=== PATIENT | male | born 1945 | race Caucasian/White ===

== ENCOUNTER 2021-03-24 17:37 | Inpatient (IN) ==
[2021-03-24] MEDS ORDERED: SODIUM CHLORIDE 0.9% 1000ML 500 ML IV ONE ×2 (18:20→21:22)
--- NOTE | 2021-03-24 18:23 | Emergency Department Note ---
Impression & Plan Ventricular fibrillation, Acute retention of urine, Hematuria, Malfunction of Izaguirre catheter, Atrial fibrillation with rapid ventricular response ED Provider Note NAME: NARAYAN PAREDES AGE: 75 SEX: M : 1945 ARRIVES VIA: Ambulance INFORMANT: Patient, the patient's significant other ED PROVIDER(S): Osorio Lilly DO CHIEF COMPLAINT: Hematuria HPI: The patient is a 75-year-old male who presented to the emergency department for an evaluation of hematuria. The patient has a history of sepsis and also Guillain-Lowery. He would normally self cath himself for urine but started having difficulty over the course the last few days. For this reason the patient had a Izaguirre catheter placed at [facility]. It sounds though he started having hematuria yesterday which significantly worsened. The patient does take an oral anticoagulant. He complains of very severe abdominal pain and bleeding around his penis. He denies having any vomiting. He said no back pain. The patient denies having any chest pain or fever. The patient's symptoms are moderate to severe. He was sent to the emergency department for further evaluation. ROS: See above HPI for pertinent positives & negatives. A total of 10 systems reviewed and were otherwise negative. PAST MEDICAL HISTORY: See Below PAST SURGICAL HISTORY: See Below FAMILY HISTORY: See Below SOCIAL HISTORY: See Below HOME MEDICATIONS: See Below ALLERGIES: See Below VITALS: See Below PHYSICAL EXAMINATION: GENERAL: The patient is awake and alert. He is very anxious appearing and appears to be uncomfortable. EYES: The conjunctivae are clear. The pupils are round and reactive. EARS, NOSE, MOUTH AND THROAT: The nose is without any evidence of any deformity. NECK: The neck is nontender and supple. RESPIRATORY: Normal respiratory effort is noted there is no evidence of wheezing rhonchi or rales CARDIOVASCULAR: Regular rate and rhythm noted there no murmurs rubs or gallops normal S1 normal S2. GASTROINTESTINAL: The abdomen is moderately distended and diffusely tender. There is no guarding rigidity. MUSCULOSKELETAL/EXTREMITIES: There is no evidence of gross deformity full range of motion is noted in the hips and shoulders. SKIN: Pedal edema was noted bilaterally. NEUROLOGIC: Patient is awake alert and oriented x3. MEDICAL DECISION MAKING: The patient is a 75-year-old male who presented to the emergency department for an evaluation of hematuria. The patient recently had a Izaguirre catheter placed. He normally he straight caths for urine. He currently resides at [facility] [place] [facility] from a recent admission for sepsis. 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 The patient has a history atrial fibrillation and receives oral anticoagulation. The patient had the Izaguirre catheter changed and had good resolution of the majority of the hematuria. The patient then developed rapid atrial fibrillation. He had wide-complex tachycardia as well and was shocked multiple times by his implanted defibrillator. He was started on IV amiodarone. He was reevaluated multiple times. I discussed the patient's laboratory and radiographic studies with him. I also discussed his case with the on-call [facility]. They have agreed to evaluate the patient in the emergency department for further management and disposition. Triage Nursing notes reviewed. Prior medical records reviewed Vital Signs: reviewed and remarkable for tachycardia and hypotension. Differential diagnosis: Testicular torsion, mass, infection, hernia, hydrocele, epididymitis, STI, trauma, intra-abdominal process, as well as other pathologies. ER treatment provided: See below Diagnostics interpreted by me: ECG: EKG was obtained in the emergency department. My interpretation is atrial fibrillation at [address] segment abnormalities were noted. PVCs were noted. This was compared to a tracing from July 202008. Normal sinus rhythm has been replaced with atrial fibrillation. Cardiac Monitoring: An order was placed for continuous cardiac monitoring. The monitor shows a rate of 142 bpm with atrial fibrillation rhythm. Laboratory studies: As stated above and show below. Imaging studies: See below Consultation(s): I discussed this case with Dr. Sheppard [facility] He will evaluate the patient in the emergency department. ED COURSE: Procedures: none PDMP:reviewed and no issues Critical Care: I have personally spent greater than 55 minutes of critical care time in the direct management of this patient. This includes bedside care, interpretation of diagnostic studies, and testing, discussion with consultants, patient, and family members, and other required patient management activities. This 55 minutes is in excess of all separately billable procedures. Past Med/Surg History Medical History Critical illness polyneuropathy Guillain-Shorter syndrome History of atrial fibrillation History of hypertension History of ventricular tachycardia Sepsis with acute hypoxic respiratory failure Surgical History History of automatic internal cardiac defibrillator (AICD) History of tracheostomy Social History Smoking Status: Never smoker Preferred Language: [place]az[place] Feels Safe at Home: Yes Allergies Allergies Allergy/AdvReac Type Severity Reaction Status Date / Time ciprofloxacin Allergy Unknown Verified 03/24/21 19:06 sertraline Allergy Unknown Verified 03/24/21 19:06 Home Meds Home Medications Medication Instructions Recorded Confirmed acetaminophen 325 mg tablet 650 mg FEEDING TUBE Q4 PRN 03/24/21 03/24/21 apixaban 5 mg tablet 5 mg FEEDING TUBE Q12 03/24/21 03/24/21 chlorhexidine gluconate 0.12 % 15 ml BUCCAL Q4 03/24/21 03/24/21 mouthwash cholecalciferol (vitamin D3) 25 12.5 mcg FEEDING TUBE DAILY 03/24/21 03/24/21 mcg (1,000 unit) capsule (Vitamin D3) cyclobenzaprine 10 mg tablet 10 mg PO TID PRN 03/24/21 03/24/21 docusate sodium 50 mg/5 mL oral 100 mg FEEDING TUBE BID 03/24/21 03/24/21 liquid furosemide 40 mg tablet 40 mg FEEDING TUBE .BIDAC 03/24/21 03/24/21 guaifenesin 100 mg/5 mL oral liquid 100 mg FEEDING TUBE Q6 03/24/21 03/24/21 latanoprost 0.005 % eye drops 1 drp OPB HS 03/24/21 03/24/21 lidocaine 5 % topical patch 1 patch TOPICAL QAM 03/24/21 03/24/21 lisinopril 2.5 mg tablet 2.5 mg FEEDING TUBE DAILY 03/24/21 03/24/21 melatonin 3 mg tablet 9 mg FEEDING TUBE HS 03/24/21 03/24/21 metoprolol tartrate 50 mg tablet 50 mg FEEDING TUBE Q8 03/24/21 03/24/21 mirtazapine 15 mg tablet 15 mg FEEDING TUBE HS 03/24/21 03/24/21 nystatin 100,000 unit/gram topical 1 applic TOPICAL BID 03/24/21 03/24/21 cream omeprazole magnesium 10 mg oral 20 mg FEEDING TUBE .BIDAC 03/24/21 03/24/21 suspension,delayed release oxycodone 5 mg tablet 5 mg PO Q4H PRN 03/24/21 03/24/21 sulfamethoxazole 800 1 tab PO 3XWK 03/24/21 03/24/21 mg-trimethoprim 160 mg tablet tramadol 50 mg tablet 50 mg PO Q4 PRN 03/24/21 03/24/21 Results & Data (ED) Vital Signs Vital Signs - 24 hr 03/24/21 17:55 03/24/21 18:01 03/24/21 20:00 Temperature 36.4 C L Temperature Source Oral Pulse Rate 64 Pulse Rate [Apical] 63 76 Pulse Rhythm Regular Pulse Rhythm [Apical] Regular Respiratory Rate 15 15 16 Respiratory Effort / Characteristics Non-Labored Respiratory Depth Normal Normal Blood Pressure 99/60 L Blood Pressure [Right Arm] 99/66 L 113/56 L Blood Pressure Mean 73 Blood Pressure Mean [Right Arm] 77 75 Blood Pressure Position [Right Arm] Lying Pulse Oximetry 95 95 98 Oxygen Delivery Method Trach Collar T-Piece Room Air Oxygen Flow Rate Sepsis Recent Fever Within 48 Hours No Sepsis New/Unexplained Change in Mental Status No Sepsis Action Taken by Nursing No Action Required 03/24/21 21:18 03/24/21 22:00 03/25/21 00:07 Temperature Temperature Source Pulse Rate 112 H Pulse Rate [Apical] 142 H 130 H Pulse Rhythm Pulse Rhythm [Apical] Regular Respiratory Rate 15 23 Respiratory Effort / Characteristics Non-Labored Respiratory Depth Normal Blood Pressure 109/86 Blood Pressure [Right Arm] 95/59 L Blood Pressure Mean Blood Pressure Mean [Right Arm] 71 Blood Pressure Position [Right Arm] Lying Pulse Oximetry 95 96 92 Oxygen Delivery Method T-Piece Trach Collar Trach Collar Oxygen Flow Rate 5 Sepsis Recent Fever Within 48 Hours Sepsis New/Unexplained Change in Mental Status Sepsis Action Taken by Longterm Medications Current Medication List: was personally reviewed by me Laboratory Data Attestation: I reviewed the patient's lab results. Result diagrams: 03/24/21 20:16 03/24/21 20:16 Lab Results 03/24/21 03/24/21 03/24/21 Range/Units 20:16 20:16 20:16 WBC 11.03 H (4.8-10.8) K/uL RBC 4.19 L (4.7-6.1) M/uL Hgb 12.5 L (14.0-18.0) g/dL Hct 38.0 L (42-52) % MCV 90.7 (80-100) fL MCH 29.8 (25-34) pg MCHC 32.9 (32-36) g/dL RDW Std Deviation 53.7 H (36.4-46.3) fL RDW Coeff of Jackie 16.1 H (11.5-14.5) % Plt Count 307 (130-400) K/uL MPV 11.2 H (7.4-10.4) fL Immature Gran % (Auto) 0.7 % Neut % (Auto) 76.3 % Lymph % (Auto) 16.3 % Angelina % (Auto) 6.3 % Eos % (Auto) 0.1 % Baso % (Auto) 0.3 % Neut # (Auto) 8.42 H (1.4-6.5) K/uL Lymph # (Auto) 1.80 (1.2-3.4) K/uL Angelina # (Auto) 0.69 H (0.11-0.59) K/uL Eos # (Auto) 0.01 (0-0.5) K/uL Baso # (Auto) 0.03 (0-0.2) K/uL Immature Gran # (Auto) 0.08 H (0.00-0.02) K/uL PT 12.3 H (9.0-12.0) Seconds INR 1.2 H (0.9-1.1) APTT 27.6 (21.0-31.0) Seconds PTT Ratio 1.0 Sodium 133 L (136-145) mmol/L Potassium 5.0 (3.5-5.1) mmol/L Chloride 95 L (98-107) mmol/L Carbon Dioxide 26 (21-32) mmol/L Anion Gap 11.0 (3-11) BUN 23 H (7-18) mg/dl Creatinine 0.89 (0.6-1.4) mg/dl Est Cr Clr Drug Dosing Not Reportable Est GFR ( Amer) 96.3 ml/min Est GFR (Non-Af Amer) 83.1 ml/min BUN/Creatinine Ratio 25.7 H (10-20) Glucose 143 H (70-99) mg/dl Calcium 9.7 (8.5-10.1) mg/dl Total Bilirubin 0.7 (0.2-1) mg/dl AST 49 H (15-37) U/L ALT 90 H (12-78) U/L Alkaline Phosphatase 131 H (45-117) U/L Troponin I (0-0.045) ng/ml Total Protein 7.3 (6.4-8.2) gm/dl Albumin 2.6 L (3.4-5.0) gm/dl Globulin 4.7 H (2.5-4.0) gm/dl Albumin/Globulin Ratio 0.5 L (0.9-2) Lipase 76 (73-393) U/L Specimen Hemolysis Urine Color Urine Appearance (Clear) Urine pH (4.5-7.5) Ur Specific [place] (1.000-1.030) Urine Protein (Negative) Urine Glucose (UA) (Negative) Urine Ketones (Negative) Urine Blood (Negative) Urine Nitrite (Negative) Urine Bilirubin (Negative) Urine Urobilinogen (Negative) Ur Leukocyte Esterase (Negative) Urine WBC (Auto) (0-5) /hpf Urine RBC (Auto) (0-4) /hpf U Hyaline Cast (Auto) (0-5) /lpf U Epithel Cells (Auto) (0-5) /lpf Urine Bacteria (Auto) (Negative) COVID-19 Eval Order SARS-CoV-2 (PCR) (Negative) 03/24/21 03/24/21 03/24/21 Range/Units 22:14 Unknown Unknown WBC (4.8-10.8) K/uL RBC (4.7-6.1) M/uL Hgb (14.0-18.0) g/dL Hct (42-52) % MCV (80-100) fL MCH (25-34) pg MCHC (32-36) g/dL RDW Std Deviation (36.4-46.3) fL RDW Coeff of Jackie (11.5-14.5) % Plt Count (130-400) K/uL MPV (7.4-10.4) fL Immature Gran % (Auto) % Neut % (Auto) % Lymph % (Auto) % Angelina % (Auto) % Eos % (Auto) % Baso % (Auto) % Neut # (Auto) (1.4-6.5) K/uL Lymph # (Auto) (1.2-3.4) K/uL Angelina # (Auto) (0.11-0.59) K/uL Eos # (Auto) (0-0.5) K/uL Baso # (Auto) (0-0.2) K/uL Immature Gran # (Auto) (0.00-0.02) K/uL PT (9.0-12.0) Seconds INR (0.9-1.1) APTT (21.0-31.0) Seconds PTT Ratio Sodium (136-145) mmol/L Potassium (3.5-5.1) mmol/L Chloride (98-107) mmol/L Carbon Dioxide (21-32) mmol/L Anion Gap (3-11) BUN (7-18) mg/dl Creatinine (0.6-1.4) mg/dl Est Cr Clr Drug Dosing Est GFR ( Amer) ml/min Est GFR (Non-Af Amer) ml/min BUN/Creatinine Ratio (10-20) Glucose (70-99) mg/dl Calcium (8.5-10.1) mg/dl Total Bilirubin (0.2-1) mg/dl AST (15-37) U/L ALT (12-78) U/L Alkaline Phosphatase (45-117) U/L Troponin I 0.015 (0-0.045) ng/ml Total Protein (6.4-8.2) gm/dl Albumin (3.4-5.0) gm/dl Globulin (2.5-4.0) gm/dl Albumin/Globulin Ratio (0.9-2) Lipase (73-393) U/L Specimen Hemolysis Urine Color Dark Yellow Urine Appearance Cloudy A (Clear) Urine pH 5.5 (4.5-7.5) Ur Specific [place] 1.014 (1.000-1.030) Urine Protein 1+ H (Negative) Urine Glucose (UA) Negative (Negative) Urine Ketones Negative (Negative) Urine Blood 3+ H (Negative) Urine Nitrite Negative (Negative) Urine Bilirubin Negative (Negative) Urine Urobilinogen Negative (Negative) Ur Leukocyte Esterase Trace H (Negative) Urine WBC (Auto) 1-5 (0-5) /hpf Urine RBC (Auto) >30 H (0-4) /hpf U Hyaline Cast (Auto) 0 (0-5) /lpf U Epithel Cells (Auto) 0-5 (0-5) /lpf Urine Bacteria (Auto) 1+ H (Negative) COVID-19 Eval [address] Covid[address] [facility] SARS-CoV-2 (PCR) (Negative) 03/24/21 Range/Units Unknown WBC (4.8-10.8) K/uL RBC (4.7-6.1) M/uL Hgb (14.0-18.0) g/dL Hct (42-52) % MCV (80-100) fL MCH (25-34) pg MCHC (32-36) g/dL RDW Std Deviation (36.4-46.3) fL RDW Coeff of Jackie (11.5-14.5) % Plt Count (130-400) K/uL MPV (7.4-10.4) fL Immature Gran % (Auto) % Neut % (Auto) % Lymph % (Auto) % Angelina % (Auto) % Eos % (Auto) % Baso % (Auto) % Neut # (Auto) (1.4-6.5) K/uL Lymph # (Auto) (1.2-3.4) K/uL Angelina # (Auto) (0.11-0.59) K/uL Eos # (Auto) (0-0.5) K/uL Baso # (Auto) (0-0.2) K/uL Immature Gran # (Auto) (0.00-0.02) K/uL PT (9.0-12.0) Seconds INR (0.9-1.1) APTT (21.0-31.0) Seconds PTT Ratio Sodium (136-145) mmol/L Potassium (3.5-5.1) mmol/L Chloride (98-107) mmol/L Carbon Dioxide (21-32) mmol/L Anion Gap (3-11) BUN (7-18) mg/dl Creatinine (0.6-1.4) mg/dl Est Cr Clr Drug Dosing Est GFR ( Amer) ml/min Est GFR (Non-Af Amer) ml/min BUN/Creatinine Ratio (10-20) Glucose (70-99) mg/dl Calcium (8.5-10.1) mg/dl Total Bilirubin (0.2-1) mg/dl AST (15-37) U/L ALT (12-78) U/L Alkaline Phosphatase (45-117) U/L Troponin I (0-0.045) ng/ml Total Protein (6.4-8.2) gm/dl Albumin (3.4-5.0) gm/dl Globulin (2.5-4.0) gm/dl Albumin/Globulin Ratio (0.9-2) Lipase (73-393) U/L Specimen Hemolysis Urine Color Urine Appearance (Clear) Urine pH (4.5-7.5) Ur Specific [place] (1.000-1.030) Urine Protein (Negative) Urine Glucose (UA) (Negative) Urine Ketones (Negative) Urine Blood (Negative) Urine Nitrite (Negative) Urine Bilirubin (Negative) Urine Urobilinogen (Negative) Ur Leukocyte Esterase (Negative) Urine WBC (Auto) (0-5) /hpf Urine RBC (Auto) (0-4) /hpf U Hyaline Cast (Auto) (0-5) /lpf U Epithel Cells (Auto) (0-5) /lpf Urine Bacteria (Auto) (Negative) COVID-19 Eval Order SARS-CoV-2 (PCR) NEGATIVE (Negative) Administered Medications Amiodarone HCl/Dextrose (Nexterone / D5w) 360 mg in 200 mls @ 33.333 mls/hr IV .Q6H BI Stop: 03/25/21 04:29 Last Admin: 03/24/21 22:47 Dose: 1 mg/min, 33.3 mls/hr Documented by: [id number] Cosigned by: [id number] Discontinued Medications Sodium Chloride (Nss 1000ml) 500 mls @ 999 mls/hr IV .Q31M ONE Stop: 03/24/21 18:50 Last Infusion: 03/24/21 23:24 Dose: 0 mls/hr Documented by: [id number] Admin: 03/24/21 20:45 Dose: 999 mls/hr Documented by: [id number] Sodium Chloride (Nss 1000ml) 500 mls @ 999 mls/hr IV .Q31M ONE Stop: 03/24/21 21:52 Last Infusion: 03/24/21 23:24 Dose: 0 mls/hr Documented by: [id number] Admin: 03/24/21 21:43 Dose: 999 mls/hr Documented by: [id number] Amiodarone HCl/Dextrose (Nexterone / D5w) 150 mg in 100 mls @ 600 mls/hr IV ONE STA Stop: 03/24/21 22:30 Last Infusion: 03/24/21 23:23 Dose: 0 mls/hr Documented by: [id number] Cosigned by: [id number] Admin: 03/24/21 22:36 Dose: 600 mls/hr Documented by: [id number] Cosigned by: [id number] Ondansetron HCl (Ondansetron Inj 2 Mg/Ml 2 Ml Vial) 4 mg IV NOW STA Stop: 03/24/21 21:23 Last Admin: 03/24/21 21:42 Dose: 4 mg Documented by: [id number] Oxycodone HCl (Oxycodone Hcl Ir 5 Mg Tab (Immediate Release)) 5 mg PO NOW STA Stop: 03/24/21 19:27 Last Admin: 03/24/21 19:44 Dose: Not Given Documented by: [id number] Imaging Data Attestation: I personally reviewed and interpreted this imaging study as follows: My Impression: 1 view chest x-ray was obtained in the emergency department. My interpretation is poor in story effort. There was an implantable defibrillator pacer in the left upper chest. Nonspecific airspace disease was noted in the lower lobes bilaterally. Tracheostomy was also noted. This was compared to a chest x-ray from July 202008. The defibrillator is new compared to the previous chest x-ray as is the tracheostomy. Discharge Plan Visit Data Chief Complaint: Hematuria Stated Complaint: hematuria ED Provider: Osorio Lilly Discharge Problem: Ventricular fibrillation, Acute retention of urine, Hematuria, Malfunction of Izaguirre catheter, Atrial fibrillation with rapid ventricular response Patient Disposition: Being Evaluated by Hospitalist Condition: Good Discharge Instructions Sandra/Other Patient Handouts: ED Hematuria Activity Restrictions/Additional Instructions: Continue all medications as prescribed. Continue to care for the Izaguirre catheter as instructed. Follow-up with your family doctor within the next 24 to 48 hours for recheck. Return to the emergency department if symptoms worsen or if need arises. Interventions: ED Discharge Assessment Last Done: 03/24/21 21:18 Forms Stand Alone Forms: My [facility], [facility] Emergency Department, Important Visit Information Prescriptions Prescriptions: No Action furosemide 40 mg Tablet 40 mg feeding tube .BIDAC RF: 0 latanoprost 0.005 % Drops 1 drp OPB HS RF: 0 acetaminophen 325 mg Tablet 650 mg feeding tube Q4 PRN (Reason: Pain (Scale Score 1-3)) RF: 0 melatonin 3 mg Tablet 9 mg feeding tube HS RF: 0 guaifenesin 100 mg/5 mL Liquid 100 mg feeding tube Q6 RF: 0 lidocaine 5 % Adhesive Patch,Medicated 1 patch TOPICAL QAM RF: 0 cholecalciferol (vitamin D3) [Vitamin D3] 25 mcg (1,000 unit) Capsule 12.5 mcg feeding tube DAILY RF: 0 omeprazole magnesium 10 mg Susp,Delayed Release For Recon 20 mg feeding tube .BIDAC RF: 0 apixaban 5 mg Tablet 5 mg feeding tube Q12 RF: 0 cyclobenzaprine [Flexeril] 10 mg Tablet 10 mg PO TID PRN (Reason: Spasms) RF: 0 tramadol 50 mg Tablet 50 mg PO Q4 PRN (Reason: Pain) RF: 0 nystatin 100,000 unit/gram Cream 1 applic TOPICAL BID RF: 0 metoprolol tartrate 50 mg Tablet 50 mg feeding tube Q8 RF: 0 mirtazapine 15 mg Tablet 15 mg feeding tube HS RF: 0 lisinopril 2.5 mg Tablet 2.5 mg feeding tube DAILY RF: 0 oxycodone 5 mg Tablet 5 mg PO Q4H PRN (Reason: Pain) RF: 0 docusate sodium 50 mg/5 mL Liquid 100 mg feeding tube BID RF: 0 sulfamethoxazole-trimethoprim 800-160 mg Tablet 1 tab PO 3XWK RF: 0 chlorhexidine gluconate 0.12 % Mouthwash 15 ml BUCCAL Q4 RF: 0 Referrals Referrals: PCP,NO [Primary Care Provider] -
[2021-03-24 19:18] LABS: Appearance Urine Cloudy (Clear); Bacteria Urine Automated 1+ (Negative); Bilirubin Urine Negative (Negative); Blood Urine 3+ (Negative); Cast Urine Automated 0 /lpf (0-5); Color Urine Dark Yellow; Epithelial Cell Urine Auto 0-5 /lpf (0-5); Glucose Urine UA Negative (Negative); Ketones Urine Negative (Negative); Leukocyte Esterase Urine Trace (Negative); Nitrite Urine Negative (Negative); Protein Urine 1+ (Negative); RBC Urine Automated >30 /hpf (0-4); Specific Gravity Urine 1.014 (1.000-1.030); Urobilinogen Urine Negative (Negative); pH Urine 5.5 (4.5-7.5)
[2021-03-24] MEDS ORDERED: oxyCODONE HCL IR 5 MG TAB (IMMEDIATE RELEASE) PO STA (19:26)
[2021-03-24 20:22] LABS: Basophils # (auto) 0.03 K/uL (0-0.2); Basophils % (auto) 0.3 %; Eosinophils # (auto) 0.01 K/uL (0-0.5); Eosinophils % (auto) 0.1 %; Hemoglobin 12.5 g/dL (14.0-18.0); Immature Granulocytes # (auto) 0.08 K/uL (0.00-0.02); Immature Granulocytes % (auto) 0.7 %; Lymphocytes % (auto) 16.3 %; Mean Corpuscular Hemoglobin 29.8 pg (25-34); Mean Corpuscular Hgb Conc 32.9 g/dL (32-36); Mean Corpuscular Volume 90.7 fL (80-100); Mean Platelet Volume 11.2 fL (7.4-10.4); Monocytes # (auto) 0.69 K/uL (0.11-0.59); Monocytes % (auto) 6.3 %; Neutrophils # (auto) 8.42 K/uL (1.4-6.5); Neutrophils % (auto) 76.3 %; Platelet Count 307 K/uL (130-400); RDW Coefficient of Variation 16.1 % (11.5-14.5); RDW Standard Deviation 53.7 fL (36.4-46.3); Red Blood Count 4.19 M/uL (4.7-6.1); White Blood Count 11.03 K/uL (4.8-10.8)
[2021-03-24 20:35] LABS: INR 1.2 (0.9-1.1); Partial Thromboplastin Time 27.6 Seconds (21.0-31.0); Prothrombin Time 12.3 Seconds (9.0-12.0)
[2021-03-24 20:54] LABS: Alanine Aminotransferase 90 U/L (12-78); Albumin Globulin Ratio 0.5 (0.9-2); Albumin Level 2.6 gm/dl (3.4-5.0); Alkaline Phosphatase 131 U/L (45-117); Aspartate Aminotransferase 49 U/L (15-37); BUN Creatinine Ratio 25.7 (10-20); Bilirubin,Total 0.7 mg/dl (0.2-1); Blood Urea Nitrogen 23 mg/dl (7-18); Calcium 9.7 mg/dl (8.5-10.1); Carbon Dioxide 26 mmol/L (21-32); Chloride 95 mmol/L (98-107); Est GFR (African American) 96.3 ml/min; Est GFR (Non-African American) 83.1 ml/min; Globulin 4.7 gm/dl (2.5-4.0); Glucose 143 mg/dl (70-99); Lipase 76 U/L (73-393); Sodium 133 mmol/L (136-145); Total Protein 7.3 gm/dl (6.4-8.2)
[2021-03-24] MEDS ORDERED: ONDANSETRON INJ 2 MG/ML 2 ML VIAL IV STA (21:22)
[2021-03-24] MEDS ORDERED: AMIODARONE IV BOLUS & DRIP IV STA (22:15)
[2021-03-24] MEDS ORDERED: AMIODARONE / D5W 150 MG/100 ML BAG IV STA (22:21)
[2021-03-24] MEDS ORDERED: AMIODARONE / D5W 360 MG/200 ML BAG IV SCH (22:30)
[2021-03-24] MEDS ORDERED: ZINC OXIDE 16% 45 APPLN, HYDROCORTISONE 1% 45 APPLN, ALUMINUM/MAGNESIUM SUSP 15 ML, BAR... TOP ONE (23:38)
[2021-03-25] MEDS ORDERED: CONSULT PHARMACY STA (00:51)
[2021-03-25] MEDS ORDERED: ACETAMINOPHEN 1000 MG/100 ML IV IV ONE (01:40)
[2021-03-25] MEDS ORDERED: PIPERACILL/TAZOBAC CONSULT ACTIVE PRN (01:47)
[2021-03-25] MEDS ORDERED: PIPERACILLIN/TAZOBACTAM 4.5 GM in DEXTROSE 5% 100 ML IV SCH (01:50)
[2021-03-25] MEDS ORDERED: OPTIRAY 320 100ml IV ONE (02:10)
[2021-03-25] MEDS ORDERED: ACETAMINOPHEN 325 MG TAB PEG PRN (02:46)
[2021-03-25] MEDS ORDERED: traMADol HCL 50 MG TABLET NG PRN (02:46)
[2021-03-25] MEDS ORDERED: NITROGLYCERIN SL 0.4 MG/TAB TAB SL PRN (02:46)
[2021-03-25] MEDS ORDERED: ACETAMINOPHEN SUSP 325 MG/10.15 ML UDC PEG PRN (02:46)
[2021-03-25 03:17] LABS: Magnesium 1.7 mg/dl (1.8-2.4)
[2021-03-25] MEDS ORDERED: PIPERACILLIN/TAZOBACTAM 4.5 GM in DEXTROSE 5% 100 ML IV ONE (03:30)
--- NOTE | 2021-03-25 03:30 | Critical Care Consultation ---
Date of Consultation March 25, 2021 Assessment & Plan (1) Admitted to intensive care unit: Reason Critically Ill: 75-year-old male with 3 separate runs of V. fib with subsequent defibrillation of AICD requiring close hemodynamic monitoring. NEURO - * [facility] ICU: NEGATIVE * Guillain-Lowery syndrome: * Recent extensive stay between [facility] with him support and LTAC in [place]. * Resulted in paralysis in the upper and lower extremities as well as requiring long-term intubation with subsequent tracheostomy tube placement with PEG tube placement as well. * Patient has regained ability to breathe on his own through tracheostomy tube in 4 L nasal cannula. * Patient able to eat on his own as well. * Remains with extreme weakness of the lower extremities bilaterally. * Has regained moderate strength to the upper extremities bilaterally. * Chronic pain: * As needed oxycodone as previously prescribed. CARDIAC/VASCULAR - * Ventricular fibrillation with AICD discharge x3: * Patient received amiodarone bolus and ongoing drip. * Will add supplemental magnesium. * Continue to monitor closely in the ICU. * A.m. echocardiogram. * A. fib with RVR: * Reported chronic. * Continue with home medications as tolerated. * Anticoagulated on apixaban. * Monitor on telemetry. RESPIRATORY - * Chronic respiratory failure: * Patient with tracheostomy tube placement. * Requiring 4 L nasal cannula which she has previously required at home secondary to history of COPD. GI/NUTRITION - * Progress diet as tolerated. * PEG tube in place, however patient reports that he has not required feeding from this the last several weeks. RENAL/LYTES - * No significant electrolyte derangements. * Supplement magnesium as needed in the setting of V. fib. * Maximize electrolytes in the setting of V. fib. * IVF: NSS at 100 mL's per hour. - * Izaguirre catheter issue: * Initially with hematuria status post Izaguirre catheter placement. * Seems to have improved status post replacement of Izaguirre catheter. * Patient with ongoing discomfort. Obtain CT abdomen/pelvis for evaluation of signs of trauma. * Izaguirre in place - Strict I&Os. ENDO - * No history of diabetes or thyroid disease. * BSGs per unit protocol. ISS --> gtt per unit policy. HEME - * Stable H&H. * Monitor for drop in blood volume status post hematuria. ID - * Question of UTI. * Currently covered with Zosyn. * Will check procalcitonin and lactate. LINES/IV ACCESS - * PIVs x1 * Izaguirre catheter * PEG tube * Tracheostomy tube DVT PROPHYLAXIS - * Anticoagulated on apixaban * SCDs I have personally spent 45 minutes of critical care time in the direct management of this patient. This is a life/limb threatening event. This includes time spent evaluating patient, direct bedside care, chart review, placing orders, interpretation of diagnostic studies, discussion with consultants, patient, and family members, as well as other required patient management activities. This time is exclusive of all separately billable procedures, and teaching time and separate from and in addition to any other critical care service time. Thank you for allowing us to participate in the care of this patient. Please refer to my attending physician's documentation for any further recommendations. (2) Ventricular fibrillation: (3) Atrial fibrillation with rapid ventricular response: (4) Malfunction of Izaguirre catheter: (5) Hematuria: Supervising Physician Co-Signing Physician Notes Agree with CHIP Lynn's assessment and plan. Concern for possible sepsis as mediating his atrial fibrillation/ventricular fibrillation. Cardiology consult appreciated. Continue amiodarone. Urine cultures growing gram-positive cocci. Blood cultures pending. MRSA screen was positive. We will add vancomycin to Zosyn. Echo noted with severe global dysfunction. EF of 25%. Stable for transfer to the floor. History of Present Illness Attending Physician: Rut Pritchett MD History of Present Illness Patient is a 75-year-old male with a significant past medical history of hypertension, chronic back pain, A. fib, status post AICD placement, sleep apnea, COPD oxygen dependent on 4 L [id number]. Patient reports that in early January he developed a low-grade fever and eventually severe escalated at which point he presented to the [facility] emergency department. He reports that he spent a few days at their facility, but had discharged of his AICD and was subsequently transferred to [facility]. He states that overnight at some point he developed a sending paralysis and was eventually diagnosed with Guillain-Lowery syndrome. Patient ended up intubated for several days and eventually had tracheostomy and PEG tube placement. From there, he was transferred to [facility] in [place] where he received therapy until he was subsequently transferred to [facility] in [place] last . He states that he has regained movement of his upper extremities and minimal improvement with movement of his lower extremities. He has regained the ability to eat. Additionally, he is able to breathe on his own through his tracheostomy tube. Apparently, the patient underwent Izaguirre catheter exchange yesterday. He reports that there is little discomfort. Has had a moderate amount of blood from his catheter site which eventually prompted transfer to [place] the emergency department. Izaguirre catheter was exchanged and there was good urinary output at that point. Unfortunately, during his stay in the emergency department, the patient had 3 separate runs of V. fib with subsequent defibrillation from his AICD pacer. Patient with marginal blood pressures. Patient admitted to this facility after administration of amiodarone with subsequent drip for ongoing management. Patient does report that he did previously have an ejection fraction of approximately 25% prior to his AICD pacer placement. He states that at some point, he was informed that this number had improved, but he is uncertain of his current ejection fraction. Patient reports that he feels much better and is breathing comfortably at this time. He denies complaints of abdominal pain. Patient denies any chest pain, palpitations, shortness of breath, fevers, chills, nausea, or vomiting. Allergies Allergy/AdvReac Type Severity Reaction Status Date / Time ciprofloxacin Allergy Unknown Verified 03/24/21 19:06 sertraline Allergy Unknown Verified 03/24/21 19:06 Home Medications Medication Instructions Recorded Confirmed Type acetaminophen 325 mg tablet 650 mg FEEDING TUBE Q4 PRN 03/24/21 03/24/21 History apixaban 5 mg tablet 5 mg FEEDING TUBE Q12 03/24/21 03/24/21 History chlorhexidine gluconate 0.12 % 15 ml BUCCAL Q4 03/24/21 03/24/21 History mouthwash cholecalciferol (vitamin D3) 25 12.5 mcg FEEDING TUBE DAILY 03/24/21 03/24/21 History mcg (1,000 unit) capsule (Vitamin D3) cyclobenzaprine 10 mg tablet 10 mg PO TID PRN 03/24/21 03/24/21 History docusate sodium 50 mg/5 mL oral 100 mg FEEDING TUBE BID 03/24/21 03/24/21 History liquid furosemide 40 mg tablet 40 mg FEEDING TUBE .BIDAC 03/24/21 03/24/21 History guaifenesin 100 mg/5 mL oral liquid 100 mg FEEDING TUBE Q6 03/24/21 03/24/21 History latanoprost 0.005 % eye drops 1 drp OPB HS 03/24/21 03/24/21 History lidocaine 5 % topical patch 1 patch TOPICAL QAM 03/24/21 03/24/21 History lisinopril 2.5 mg tablet 2.5 mg FEEDING TUBE DAILY 03/24/21 03/24/21 History melatonin 3 mg tablet 9 mg FEEDING TUBE HS 03/24/21 03/24/21 History metoprolol tartrate 50 mg tablet 50 mg FEEDING TUBE Q8 03/24/21 03/24/21 History mirtazapine 15 mg tablet 15 mg FEEDING TUBE HS 03/24/21 03/24/21 History nystatin 100,000 unit/gram topical 1 applic TOPICAL BID 03/24/21 03/24/21 History cream omeprazole magnesium 10 mg oral 20 mg FEEDING TUBE .BIDAC 03/24/21 03/24/21 History suspension,delayed release oxycodone 5 mg tablet 5 mg PO Q4H PRN 03/24/21 03/24/21 History sulfamethoxazole 800 1 tab PO 3XWK 03/24/21 03/24/21 History mg-trimethoprim 160 mg tablet tramadol 50 mg tablet 50 mg PO Q4 PRN 03/24/21 03/24/21 History Patient History Medical History Critical illness polyneuropathy Guillain-[place] syndrome History of atrial fibrillation History of hypertension History of ventricular tachycardia Sepsis with acute hypoxic respiratory failure Surgical History History of automatic internal cardiac defibrillator (AICD) History of tracheostomy Social History Smoking Status: Unknown if ever smoked Hx Alcohol Use: No Hx Substance Use: No Preferred Language: Romansh Communication Ability: Effective Beliefs That Will Affect Care: None Current Living Situation: Rehab Current Living Situation Comment: [facility] Feels Safe at Home: Yes Safety Concerns: Feels Safe At This Time Assistive Devices: Glasses, Mechanical Lift, Oxygen - at Night and Wheelchair Review of Systems Review of Systems: A complete 10 point review of systems was reviewed with the patient with pertinent positives and negatives as per history of present illness. All else were negative. Physical Exam Physical Exam: VITAL SIGNS - Vital signs and nursing notes were reviewed. GENERAL - 75-year-old male appearing his stated age who is in no acute distress. Communicates well with provider and answers questions appropriately. SKIN - Without rashes. HEAD - NC/AT. EYES - PERRL with EOMI bilaterally. Sclera anicteric. Palpebral conjunctiva pink and moist with no injection noted. EARS - No deformities of external structures noted on gross examination bilaterally. NOSE - Midline and without cyanosis. No epistaxis or purulent drainage noted. MOUTH/OROPHARYNX - Without perioral cyanosis. Buccal mucosa pink and moist and without leukoplakia. NECK - Tracheostomy tube in place. Neck with FROM. Supple to palpation. No nuchal rigidity. LUNGS - Chest wall symmetric without accessory muscle use, intercostals retractions, or central cyanosis. Normal vesicular breath sounds CTA B/L. No wheezes, rales, or rhonchi appreciated. CARDIAC - Irregularly irregular. No murmur, rubs, or gallops appreciated. ABDOMEN - PEG tube in place. Abdominal contour obese without pulsations or visible masses. BS normoactive all four quadrants. No tenderness, palpable masses, hepatosplenomegaly, or ascites noted. EXTREMITIES - No clubbing or peripheral cyanosis. No pretibial edema present. +3/5 radial and dorsalis pedis pulses palpated throughout. Reduced strength in the upper extremities bilaterally. Minimal strength of the lower extremities bilaterally. NEUROLOGIC - Cranial nerves II through XII grossly intact. PSYCH - A&Ox3 and cooperates fully with examiner. Pt is very pleasant and interacts well with examiner. Results & Data Results & Data ([facility]) Vital Signs (Past 12 Hours) Vital Signs Temp Pulse Pulse Resp BP BP Pulse Ox 03/25/21 03:16 36.8 C 104 H 20 91/54 L 92 03/25/21 01:51 135 H 90/53 L 100 03/25/21 00:07 130 H 95/59 L 92 03/24/21 22:00 142 H 23 96 03/24/21 21:18 112 H 15 109/86 95 03/24/21 20:00 76 16 113/56 L 98 03/24/21 18:01 36.4 C L 64 15 99/60 L 95 03/24/21 17:55 63 15 99/66 L 95 Coding Level of Care Code Critical Care 1st 30-74 mins Diagnoses Admitted to intensive care unit Z78.9 Ventricular fibrillation I49.01 Atrial fibrillation with rapid ventricular response I48.91 Malfunction of Izaguirre catheter T83.011A Encounter type: initial encounter Hematuria R31.0 Hematuria type: gross Time Spent (min) 45 (1) Malfunction of Izaguirre catheter Encounter type: initial encounter Qualified Code(s): T83.011A - Breakdown (mechanical) of indwelling urethral catheter, initial encounter (2) Hematuria Hematuria type: gross Qualified Code(s): R31.0 - Gross hematuria
[2021-03-25] MEDS: SODIUM CHLORIDE 0.9% 1000ML 1,000 ML IV SCH ×3 (04:00→22:58)
[2021-03-25] MEDS: CHLORHEXIDINE GLUCONATE 0.12% 480 ML MT SCH ×5 (04:00→20:57)
[2021-03-25] MEDS: ALBUMIN 25% 12.5 GM/50 ML VIAL IV SCH ×2 (04:00→05:03)
[2021-03-25] MEDS: MAGNESIUM SULFATE / D5W 1 GM/100 ML BAG IV SCH ×2 (04:27→05:38)
[2021-03-25] MEDS: AMIODARONE / D5W 360 MG/200 ML BAG IV SCH ×2 (04:46→17:02)
[2021-03-25] MEDS: METOPROLOL TARTRATE 50 MG TAB PEG SCH ×3 (05:25→21:01)
[2021-03-25] MEDS: guaiFENesin SUGAR FREE 100 MG/5 ML UDC GT SCH ×3 (05:29→17:05)
--- NOTE | 2021-03-25 05:41 | History and Physical Report ---
DATE OF ADMISSION: 03/25/2021. CHIEF COMPLAINT: Hematuria, ICD shock. HISTORY OF PRESENT ILLNESS: A 75-year-old male with past medical history significant for atrial fibrillation, status post ablation, hypertension, hx of ventricular tachycardia, history of Guillain-[place] syndrome, critical illness polyneuropathy sepsis with acute hypoxemic respiratory failure, currently at [facility], who comes here because of hematuria. The patient is from the [place] area, generally goes to [place]. As per patient and his On 01/11/2021, he was admitted to [place] with sepsis. Then one week later, the patient could not move his extremities and he was short of breath and he was told that he has Guillain-[place] syndrome. As per the patient and his , he was intubated, he was on the ventilator almost for 2 months. He was there in [place] for 3 weeks and was transferred to [place], seemed to be long-term facility, and recently was transferred to [facility] as he was getting better for rehabilitation. He has trach and he is on oxygen from his [facility]. The patient is alert and oriented and able to give his history. Speech is good. 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 He has a PEG tube, but he is saying he is on pureed diet per mouth and also having PEG tube feedings. Yesterday at [facility] his Izaguirre catheter was placed and he started to have a lot of pain and today developed hematuria, that is the reason he was brought in here. In the ER, thought the Izaguirre was malfunctioning and it was removed and after placing the new Izaguirre in the ER his pain resolved, and the hematuria also started getting better. ER planned to transfer him back to [facility], when his ICD shocked 3 times. He was started on amiodarone drip and we were called for admission. The patient is currently resting comfortably, alert and oriented. He says he could feel the shocks, he felt that shocks in his head. He says he did not lose his consciousness. Denies any chest pain, denies any palpitations. No nausea, no headache, no blurred visions, no earache, no runny nose, no sore throat, no cough, no fever. Earlier he was nauseous, when he was in a lot of pain he was nauseous, but the pain is resolved now and now he is feeling okay. Bowels are moving okay. The patient and do not recollect why ICD was placed. ALLERGIES: CIPROFLOXACIN AND SERTRALINE. PAST MEDICAL HISTORY: As mentioned above. PAST SURGICAL HISTORY: ICD placement, knee surgeries as per the patient, and tracheostomy. MEDICATIONS: Currently the patient is on Tylenol 650 mg p.o. q. 4 hours p.r.n. via feeding tube, Eliquis 5 mg p.o. b.i.d., chlorhexidine gluconate ____ mL buccal q. 4 hours, vitamin D 12.5 mcg via feeding tube daily, Flexeril 10 mg p.o. t.i.d. p.r.n., Colace 100 mg via feeding tube b.i.d., Lasix 40 mg b.i.d. via feeding tube, guaifenesin 100 mg q. 6 hours via feeding tube, latanoprost one drop ophthalmic at bedtime, lidocaine 1 patch topical q.a.m., lisinopril 2.5 mg via feeding tube daily, melatonin 9 mg via feeding tube at bedtime, metoprolol tartrate 50 mg via feeding tube q. 8 hours, mirtazapine 15 mg p.o. at bedtime via feeding tube, nystatin topical b.i.d., omeprazole 20 mg via feeding tube b.i.d., oxycodone 5 mg p.o. q. 4 hours p.r.n., Bactrim 1 tablet p.o. 3 times a week, tramadol 50 mg p.o. q. 4 hours p.r.n. via feeding tube. FAMILY HISTORY: Noncontributory. SOCIAL HISTORY: Denies any smoking. Alcohol rarely. REVIEW OF SYSTEMS: As per HPI. Rest of the review of systems is negative. PHYSICAL EXAMINATION: GENERAL: The patient is of moderate build, not in acute distress. VITAL SIGNS: Temperature 36.4, pulse 130, respiratory rate 23, blood pressure 90/53, oxygen 100% on 5 liters and trach collar. HEENT: Pupils equal, round and reactive to light. Oral mucosa moist. NECK: Trach present with oxygen on. CARDIOVASCULAR: S1 and S2 heard. Tachycardia. No murmurs, no gallop. RESPIRATORY SYSTEM: Normal AP diameter. No accessory muscle use. No wheezing, no crackles. ABDOMEN: PEG tube seen, PEG tube site is clean. No guarding, no rigidity, no distention, no tenderness. CENTRAL NERVOUS SYSTEM: Alert and oriented. Speech is clear. No facial droop. Insight is good. Can move his upper extremities. Wiggle his lower extremities. EXTREMITIES: No edema, no erythema. LABORATORY DATA: WBC 11.03, hemoglobin 12.5, hematocrit 38, platelets 307. PT 12.3, INR 1.2, APTT 27.6. Sodium 133, potassium 5, chloride 95, bicarbonate 26, BUN 23, creatinine 0.8, serum glucose 143, calcium 9.7, total bilirubin 0.7, AST 49, ALT 90, alkaline phosphatase 131, troponin I of 0.015. Lipase 76. Urinalysis, +1 protein, + 3 blood, trace leukocyte esterase, +1 bacteria. SARS-CoV-2 PCR negative. IMAGING DATA: Chest x-ray, no acute findings seen. ICD seen. EKG: Sinus tachycardia with PVCs at the rate of 140, left axis deviation. ASSESSMENT AND PLAN: This is a 75-year-old male who presents with hematuria and in the ER he had ICD shock. 1. ICD shock: Interrogation reveals v fib and was shocked 3 times. His potassium is okay at 5, ordered magnesium. As per records, seems that he has a probable history of ventricular tachycardia. He does not know why he has ICD. Currently on amiodarone drip. Will continue the amiodarone. Monitor his blood pressure. Consulted and notified cardiology. We will follow echocardiogram. Follow serial cardiac enzymes. Intial plan to admit to tele but as patient becoming hypotensive SBP dropping into 70's admitting to ICU, blood pressure improving with more fluids bolus Also his heart rates in 130s possibly as patient complaining of lower back pain. Will closely monitor in the ICU. 2. Hematuria: This is getting better. Hemoglobin is 12.5. Blood consent obtained. Probably from the Izaguirre catheter. Holding Eliquis for now and consult urology in a.m. We will keep him n.p.o. 3. Possible urinary tract infection: Start him on Zosyn. 4. Pressure ulcers and abdominal pain: Recent Izaguirre obstruction. We will get a CT of abdomen and pelvis, follow the results. Antibiotics as above. 5. History of Guillain-Caledonia syndrome: Currently he is moving his extremities. Transfer back to rehab when stable. On trach collar. 6. History of hypertension: Currently blood pressure is low. We will monitor. On lisinopril and metoprolol tartrate, withholding parameters. 7. Possible congestive heart failure: On Lasix, which we will continue. Currently getting fluids. Will monitor for any volume overload. Follow echocardiogram. 8. A fib s/p ablaton one year ago as per . on metoprolol. currently on amiodarone drip. Holding eliquis for hematuria.Will monitor BP as currently BP soft.Await cardiology input. Close monitor in ICU 9. Deep venous thrombosis prophylaxis: We will place him on sequential compression devices for now. DISPOSITION: Closely monitor in the ICU. Level 1 full code. Expect to discharge back to rehab when stable. Job ID: [id number] MTDD
[2021-03-25 06:10] LABS: BUN Creatinine Ratio 33.5 (10-20); Calcium 8.7 mg/dl (8.5-10.1); Creatinine Clr Calc Pharmacy 114.6 ml/min; Est GFR (African American) 106.9 ml/min; Est GFR (Non-African American) 92.2 ml/min; Magnesium 1.8 mg/dl (1.8-2.4); Phosphorus 4.3 mg/dl (2.5-4.9); Potassium 3.3 mmol/L (3.5-5.1); Troponin I 0.059 ng/ml (0-0.045)
[2021-03-25 06:18] LABS: Basophils # (auto) 0.01 K/uL (0-0.2); Eosinophils # (auto) 0.01 K/uL (0-0.5); Hematocrit (blood only) 30.5 % (42-52); Hemoglobin 9.9 g/dL (14.0-18.0); Immature Granulocytes # (auto) 0.14 K/uL (0.00-0.02); Immature Granulocytes % (auto) 0.7 %; Lymphocytes # (auto) 0.89 K/uL (1.2-3.4); Lymphocytes % (auto) 4.4 %; Mean Corpuscular Hemoglobin 29.9 pg (25-34); Mean Corpuscular Hgb Conc 32.5 g/dL (32-36); Mean Corpuscular Volume 92.1 fL (80-100); Mean Platelet Volume 11.3 fL (7.4-10.4); Monocytes # (auto) 1.23 K/uL (0.11-0.59); Monocytes % (auto) 6.1 %; Neutrophils % (auto) 88.8 %; Nucleated RBC # (auto) 0.02 K/uL (0-0); Nucleated RBC % (auto) 0.1 %; Platelet Count 230 K/uL (130-400); RDW Coefficient of Variation 16.4 % (11.5-14.5); RDW Standard Deviation 55.4 fL (36.4-46.3); Red Blood Count 3.31 M/uL (4.7-6.1); White Blood Count 20.28 K/uL (4.8-10.8)
[2021-03-25] MEDS: POTASSIUM CHLORIDE / WTR 10 MEQ/100 ML PLCT IV SCH ×2 (06:43→08:56)
--- NOTE | 2021-03-25 06:58 | CT Scan Report ---
CT OF THE ABDOMEN AND PELVIS WITH CONTRAST CLINICAL HISTORY: Abdominal and back pain. COMPARISON STUDY: None. TECHNIQUE: Following IV administration of 95 mL of Optiray, axial images of the abdomen and pelvis we re obtained from the lung bases to the proximal femurs. Images were reviewed in the axial, sagittal, and coronal planes. IV contrast was administered without complication. Automated exposure control wa s utilized for the study. A dose lowering technique was utilized adhering to the principles of ALARA . CT DOSE: 1585.08 mGy.cm FINDINGS: Pacer leads are partially imaged. There is moderate cardiomegaly. Lower lung opacities favo r atelectasis. No pneumatosis, free air or portal venous gas is present. The liver, spleen, adrenal g lands and pancreas are unremarkable. Renal lesions favor cysts. There is no hydronephrosis. The gallb ladder is moderately distended. There is no adjacent infiltration. A gastrostomy tube is in place. Th ere is no evidence for a bowel obstruction. There is hyperdense material within the rectum and distal colon. Colonic diverticulosis is noted without evidence for acute diverticulitis. There is no eviden ce for a bowel obstruction. Infrarenal abdominal aorta is ectatic. There is moderate atherosclerotic plaque. Izaguirre balloon within the bladder is noted. Bladder is collapsed. There is no acute fracture o r suspicious lesion within the visualized skeletal structures. Multilevel degenerative changes of the lumbar spine are present. Fat-containing umbilical hernia is present. IMPRESSION: 1. Moderate gallbladder distention. However, no pericholecystic infiltration. 2. Colonic diverticulosis without evidence for acute diverticulitis. No bowel obstruction. Gastrostom y tube in place. 3. Lower lung opacities which favor atelectasis. ACT 112: Negative or not required by law. Electronically signed by: Jesus Alfred M.D. 03/25/2021 6:57 AM
[2021-03-25] MEDS ORDERED: VANCOMYCIN CONSULT ACTIVE PRN ×2 (08:36→13:52)
[2021-03-25] MEDS ORDERED: VANCOMYCIN HCL 1,500 MG in SODIUM CHLORIDE 0.9% 500 ML IV SCH ×2 (08:45→14:00)
--- NOTE | 2021-03-25 08:53 | XRay Report ---
SINGLE VIEW CHEST CLINICAL HISTORY: Palpitations. FINDINGS: An AP, portable, upright chest radiograph is compared to study dated 07/20/2009. The examin ation is degraded by portable technique and patient rotation. A 2-lead cardiac pacemaker partially o bscures the left mid chest. A tracheostomy is in place. The heart is enlarged. The pulmonary vasculat ure is noncongested. There is elevation of the right hemidiaphragm with bibasilar airspace opacities. No large pleural effusion or pneumothorax is seen. The skeletal structures are osteopenic. The bony thorax is grossly intact. A gastrostomy tube is seen in the upper abdomen. IMPRESSION: 1. Cardiomegaly and cardiac pacemaker. There is no radiographic evidence of congestive failure. 2. Dependent airspace opacities likely represent atelectasis. Correlate clinically for evidence of a superimposed infectious/inflammatory pneumonitis. ACT 112: Negative or not required by law. Electronically signed by: Justin Sky M.D. 03/25/2021 8:52 AM
[2021-03-25] MEDS: LANSOPRAZOLE 30 MG SOLTAB PEG SCH ×2 (08:56→17:03)
[2021-03-25] MEDS: FUROSEMIDE 40 MG TAB PO SCH ×2 (08:56→17:03)
[2021-03-25] MEDS: PIPERACILLIN/TAZOBACTAM 3.375 GM in DEXTROSE 5% 100 ML IV SCH ×2 (08:56→17:02)
[2021-03-25] MEDS: DOCUSATE SODIUM SYRUP 100 MG/10 ML UDC PEG SCH ×2 (08:57→20:58)
[2021-03-25] MEDS: lisinopril 2.5 MG TAB PO SCH (08:57)
[2021-03-25] MEDS: CHOLECALCIFEROL 1,000 UNITS 25 MCG TAB PEG SCH (08:57)
[2021-03-25] MEDS: LIDOCAINE 5% 1 PATCH TD SCH (08:57)
[2021-03-25] MEDS: NYSTATIN CR 15 GM TUBE EXT SCH ×2 (08:58→21:01)
[2021-03-25] MEDS ORDERED: VANCOMYCIN HCL 2,250 MG in SODIUM CHLORIDE 0.9% 500 ML IV ONE (09:15)
--- NOTE | 2021-03-25 11:23 | Cardiology Consultation ---
Date of Consultation March 25, 2021 Assessment & Plan (1) AICD discharge: (2) Hematuria: (3) Severe left ventricular systolic dysfunction: The interrogation of the patient's dual chamber [employer] AICD was reviewed personally and I also asked Dr Fernández of EP to review it for a second opinion. Is that the patient's telemetry is somewhat unhelpful, as he has a tremor, and therefore evaluation of tachycardia and wide-complex tachycardia is technically limited on his surface telemetry. Per review of the device interrogation, he did have an episode of atrial fibrillation yesterday, and leading up to the [address] A[address] just before 10 PM, its somewhat challenging to d etermine if this was related to atrial fibrillation with very rapid ventricular response in excess of 200 bpm, or if it was in fact ventricular tachycardia. The device attempted antitachycardia pacing on 3 occasions without success and the patient subsequently received 3 shocks with successful conversion to sinus rhythm. At present he is on an amiodarone infusion. Per review of the limited available outside records (H and P performed at time of admission to the [facility] at [place]), it appears he had been treated with IV amiodarone and IV diltiazem for rapid atrial fibrillation at one point during his stay in [place]. His previous dose of metoprolol tartrate 50 mg every 8 hours via PEG tube will be continued. Amiodarone will be utilized for suppression of atrial and ventricular arrhy thmias. Future considerations include changing the VF treatment zone which is currently set at 200 bpm to a higher threshold if there is concern with regards to future shocks from atrial fibrillation, but it present I am inclined to keep his settings the same. The patient was not very knowledgeable with regards to his cardiac history. He denies ever having had a heart catheterization, coronary heart disease, or past "cardiomyopathy ". He is unaware of the term "ventricular tachycardia ". I called and spoke to his spouse, Shanna by phone (home phone #[phone]) and she was also not aware of more details. It would be somewhat unusual for patient to have an AICD without a past detailed work-up for ischemic heart disease, therefore we will need to reach out to his primary cardiology care group tomorrow (Friday). For now, patient to remain off of Eliquis given severe gross hematuria, although systemic anticoagulation does appear to be necessary in the long-term from both a stroke prophylaxis and DVT prophylaxis standpoint. Agree with empiric treatment for sepsis. History of Present Illness Attending Physician: Rut Pritchett MD History of Present Illness Marina Bull is a 75 year old male seen in cardiology consultation in ICU room 110 per the request of Dr Sheppard for the evaluation of AICD discharges x 3 overnight. The patient has received his past cardiac care at [facility]. He has previusly undergone an ablation (details unknown at this time) and dual chamber [employer] AICD performed by Dr Cisneros ([facility]) , office phone [phone]. The patient has a past medical history of atrial fibrillation that per his spouse, Shanna, dates back to 2017. Per her description it sounds as if he had a history of cardioversion, and ablation (details unknown) has a chart history of ventricular tachycardia, and a dual-chamber AICD. The patient's recent illness dates back to 01/11/2021 when [facility] to [facility] for symptoms of intermittent fever, nausea, diarrhea and weakness. He was diagnosed with sepsis and rapid atrial fibrillation. Per the spouse, his AICD had discharged on the way to the hospital at that time when he was in their care with her, and two more times in the ED. 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 He underwent tracheostomy, PEG tube placement, and has had an indwelling Izaguirre catheter. He was subsequently transferred to the [facility]) at [place] where he was admitted from 02/02/2021 until 03/14/[address] [facility] [place]. Last evening he was transferred to from [facility] to the ED at [facility] for hematuria. His Izaguirre catheter was exchanged. Atrial fibrillation with rapid ventricular response was observed, and then his ICD discharged 3 times. EKG this morning reveals sinus rhythm at 80 bpm with occasional premature atrial contractions. Echocardiogram reveals severe left ventricular hypokinesis, qualitative LVEF 25%. Prior echocardiogram studies performed at [facility] in January of this year included ejection fraction in the range of 45 to 50%. At present, the patient is comfortable. He demonstrates a cough. At present his Izaguirre catheter is draining clear yellow urine. He is utilizing supplemental oxygen on his trach collar, 20% FiO2. Allergies Allergy/AdvReac Type Severity Reaction Status Date / Time ciprofloxacin Allergy Unknown Verified 03/24/21 19:06 sertraline Allergy Unknown Verified 03/24/21 19:06 Home Medications Medication Instructions Recorded Confirmed Type acetaminophen 325 mg tablet 650 mg FEEDING TUBE Q4 PRN 03/24/21 03/24/21 History apixaban 5 mg tablet 5 mg FEEDING TUBE Q12 03/24/21 03/24/21 History chlorhexidine gluconate 0.12 % 15 ml BUCCAL Q4 03/24/21 03/24/21 History mouthwash cholecalciferol (vitamin D3) 25 12.5 mcg FEEDING TUBE DAILY 03/24/21 03/24/21 History mcg (1,000 unit) capsule (Vitamin D3) cyclobenzaprine 10 mg tablet 10 mg PO TID PRN 03/24/21 03/24/21 History docusate sodium 50 mg/5 mL oral 100 mg FEEDING TUBE BID 03/24/21 03/24/21 History liquid furosemide 40 mg tablet 40 mg FEEDING TUBE .BIDAC 03/24/21 03/24/21 History guaifenesin 100 mg/5 mL oral liquid 100 mg FEEDING TUBE Q6 03/24/21 03/24/21 History latanoprost 0.005 % eye drops 1 drp OPB HS 03/24/21 03/24/21 History lidocaine 5 % topical patch 1 patch TOPICAL QAM 03/24/21 03/24/21 History lisinopril 2.5 mg tablet 2.5 mg FEEDING TUBE DAILY 03/24/21 03/24/21 History melatonin 3 mg tablet 9 mg FEEDING TUBE HS 03/24/21 03/24/21 History metoprolol tartrate 50 mg tablet 50 mg FEEDING TUBE Q8 03/24/21 03/24/21 History mirtazapine 15 mg tablet 15 mg FEEDING TUBE HS 03/24/21 03/24/21 History nystatin 100,000 unit/gram topical 1 applic TOPICAL BID 03/24/21 03/24/21 History cream omeprazole magnesium 10 mg oral 20 mg FEEDING TUBE .BIDAC 03/24/21 03/24/21 History suspension,delayed release oxycodone 5 mg tablet 5 mg PO Q4H PRN 03/24/21 03/24/21 History sulfamethoxazole 800 1 tab PO 3XWK 03/24/21 03/24/21 History mg-trimethoprim 160 mg tablet tramadol 50 mg tablet 50 mg PO Q4 PRN 03/24/21 03/24/21 History Patient History Medical History 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 History of atrial fibrillation History of hypertension History of ventricular tachycardia Sepsis with acute hypoxic respiratory failure Surgical History History of automatic internal cardiac defibrillator (AICD) History of tracheostomy Social History Smoking Status: Unknown if ever smoked Hx Alcohol Use: No Hx Substance Use: No Preferred Language: Slovak Communication Ability: Effective Beliefs That Will Affect Care: None Current Living Situation: Rehab Current Living Situation Comment: [facility] Feels Safe at Home: Yes Safety Concerns: Feels Safe At This Time Assistive Devices: Glasses, Mechanical Lift, Oxygen - at Night and Wheelchair Review of Systems Review of Systems: All systems reviewed & are unremarkable except as noted in HPI & below Physical Exam Physical Exam: Temp Pulse Resp BP Pulse Ox 36.8 C 76 18 98/61 L 100 03/25/21 03:16 03/25/21 08:00 03/25/21 06:06 03/25/21 06:06 03/25/21 06:06 Constitutional: + ill appearing (Chronically ill in appearance, no acute distress) Respiratory: Auscultation: + diminished lung sounds (Mildly decreased breath sounds at the bases); no crackles, no rales and no wheezes Cardiovascular: RRR, no murmur, no edema Chest (Breasts): Additional Comments: Left infraclavicular device pocket clean dry and intact, no erythema Neurologic: Awake, oriented, diffuse weakness Genitourinary: Dried blood noted at the urethral meatus, Izaguirre catheter draining clear yellow urine. Results & Data ([facility]) Vital Signs (Past 12 Hours) Vital Signs Temp Pulse Pulse Resp BP BP Pulse Ox 03/25/21 08:00 76 03/25/21 06:06 80 18 98/61 L 100 03/25/21 05:36 91 H 17 109/65 98 03/25/21 05:05 85 19 86/59 L 98 03/25/21 04:35 85 14 105/65 94 03/25/21 04:15 100 H 24 100/71 94 03/25/21 04:01 18 81/56 L 82 L 03/25/21 03:50 103 H 17 78/57 L 98 03/25/21 03:33 128 H 25 H 90/62 L 94 03/25/21 03:16 36.8 C 104 H 20 91/54 L 92 03/25/21 01:51 135 H 90/53 L 100 03/25/21 00:07 130 H 95/59 L 92 (1) Hematuria Hematuria type: gross Qualified Code(s): R31.0 - Gross hematuria
[2021-03-25] MEDS ORDERED: VANCOMYCIN HCL 2,000 MG in SODIUM CHLORIDE 0.9% 500 ML IV ONE (13:52)
--- NOTE | 2021-03-25 16:42 | Pharmacy Report ---
Pharmacy Abx Initial Consult - Date of Service March 25, 2021 - Pharmacy Dosing Scope Date of Consult: 03/25/21 Consultation requested by: Dr. Chowdary Pharmacy is consulted to initiate Vancomycin/Zosyn IV/PO dosing therapy, order appropriate labs and adjust drug dose/frequency. - Subjective The patient is a 75 year old M admitted on 03/25/21 00:46. - Objective Height: 6 ft Weight: 106 kg Vital Signs (Past 12hrs): Vital Signs Pulse Pulse Resp BP Pulse Ox 03/25/21 13:56 77 24 103/58 L 95 03/25/21 12:57 82 14 107/56 L 99 03/25/21 11:00 86 19 99 03/25/21 10:00 84 25 H 93 03/25/21 08:05 79 14 109/67 99 03/25/21 08:00 76 03/25/21 07:06 77 16 123/63 98 03/25/21 06:06 80 18 98/61 L 100 03/25/21 05:36 91 H 17 109/65 98 03/25/21 05:05 85 19 86/59 L 98 Lab Results (24hrs): Laboratory Tests (24 Hours) 03/25/21 03/25/21 03/25/21 07:18 05:12 05:12 WBC 20.28 H Neut # (Auto) 18.00 H Creatinine 0.69 Est Cr Clr Drug Dosing 114.6 Procalcitonin 46.84 H 03/24/21 03/24/21 20:16 20:16 WBC 11.03 H Neut # (Auto) 8.42 H Creatinine 0.89 Est Cr Clr Drug Dosing Not Reportable Procalcitonin Micro Results: 03/25/21 08:39 Aerobic Blood Culture - Pending Blood Anaerobic Blood Culture - Pending 03/25/21 08:47 Aerobic Blood Culture - Pending Blood Anaerobic Blood Culture - Pending - Risk Factors for Resistance * Resident in a fpc or extended-care facility * Hospitalization for 48 hours or more within the past 90 days * Current hospitalization > 5 days * Chronic dialysis within the past 30 days * Immunocompromised (chronic steroid therapy, chemotherapy, immunomodulators) * History of infection with a multidrug-resistant organism: [organism] [site of infection] [date] * Antimicrobial use within the last 90 days [include specific drugs, if known] - Assessment & Plan Assessment 75 year old M presents to ER for evaluation of hematuria. Patient normally self caths but started having difficulty over the last few days. Hematuria has significantly worsened. Patient c/o severe abdominal pain and bleeding around his penis. Plan Vancomcyin & Zosyn for treatment of UTI Vancomycin IV * Estimated PK Parameters: Jovon 0.099 hr-1, t1/2 7 hr * Loading dose: 2250 mg (21.2 mg/kg) * Maintenance dose: 1250 mg IV (11.8 mg/kg) every 12 hours * Goal trough level : ~ 15 mcg/mL * Trough/Random level ordered for 03/26/21 * AUC/YASMIN is the preferred PK/PD target for vancomycin * AUC guided dosing is effective and associated with decreased risk of nephrotoxicity compared to traditional trough targets Piperacillin/tazobactam * 4.5 g bolus administered over 30 minutes, then 3.375 g IV extended infusion every 8 hours for CrCl greater than 20 mL/min OR every 12 hours for CrCl 20 mL/min or less and dialysis. * Aggressive dosing selected due to critically ill status/BMI 35 or more/history of cystic fibrosis. Pharmacy will continue to follow and will adjust dose/frequency as necessary. Thank you.
--- NOTE | 2021-03-25 17:50 | Urology Consultation ---
Date of Consultation March 25, 2021 Assessment & Plan (1) Hematuria, gross: Gross hematuria secondary to steele trauma. At this time his hematuria has cleared. He will likely have some blood drain from the meatus and around the catheter. Leave steele in place. No further interventions needed. History of Present Illness Reason for Consultation: hematuria Attending Physician: Rut Pritchett MD History of Present Illness The patient was admitted last evening from the ER. He came with a catheter likely placed at his facility into the prostate. He had suprapubic pain and hematuria. A new catheter was passed and drained without issues. His hematuria cleared. Of note, patient is sleeping heavily. All history is obtained from the chart as there is no family present. Patient with recent history of GBS - trach/PEG. He is slowly recovering. No issues with the catheter overnight per nursing. Some bleeding around the meatus. Allergies Allergy/AdvReac Type Severity Reaction Status Date / Time ciprofloxacin Allergy Unknown Verified 03/24/21 19:06 sertraline Allergy Unknown Verified 03/24/21 19:06 Home Medications Medication Instructions Recorded Confirmed Type acetaminophen 325 mg tablet 650 mg FEEDING TUBE Q4 PRN 03/24/21 03/24/21 History apixaban 5 mg tablet 5 mg FEEDING TUBE Q12 03/24/21 03/24/21 History chlorhexidine gluconate 0.12 % 15 ml BUCCAL Q4 03/24/21 03/24/21 History mouthwash cholecalciferol (vitamin D3) 25 12.5 mcg FEEDING TUBE DAILY 03/24/21 03/24/21 History mcg (1,000 unit) capsule (Vitamin D3) cyclobenzaprine 10 mg tablet 10 mg PO TID PRN 03/24/21 03/24/21 History docusate sodium 50 mg/5 mL oral 100 mg FEEDING TUBE BID 03/24/21 03/24/21 History liquid furosemide 40 mg tablet 40 mg FEEDING TUBE .BIDAC 03/24/21 03/24/21 History guaifenesin 100 mg/5 mL oral liquid 100 mg FEEDING TUBE Q6 03/24/21 03/24/21 History latanoprost 0.005 % eye drops 1 drp OPB HS 03/24/21 03/24/21 History lidocaine 5 % topical patch 1 patch TOPICAL QAM 03/24/21 03/24/21 History lisinopril 2.5 mg tablet 2.5 mg FEEDING TUBE DAILY 03/24/21 03/24/21 History melatonin 3 mg tablet 9 mg FEEDING TUBE HS 03/24/21 03/24/21 History metoprolol tartrate 50 mg tablet 50 mg FEEDING TUBE Q8 03/24/21 03/24/21 History mirtazapine 15 mg tablet 15 mg FEEDING TUBE HS 03/24/21 03/24/21 History nystatin 100,000 unit/gram topical 1 applic TOPICAL BID 03/24/21 03/24/21 History cream omeprazole magnesium 10 mg oral 20 mg FEEDING TUBE .BIDAC 03/24/21 03/24/21 History suspension,delayed release oxycodone 5 mg tablet 5 mg PO Q4H PRN 03/24/21 03/24/21 History sulfamethoxazole 800 1 tab PO 3XWK 03/24/21 03/24/21 History mg-trimethoprim 160 mg tablet tramadol 50 mg tablet 50 mg PO Q4 PRN 03/24/21 03/24/21 History Patient History Medical History 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 History of atrial fibrillation History of hypertension History of ventricular tachycardia Sepsis with acute hypoxic respiratory failure Surgical History History of automatic internal cardiac defibrillator (AICD) History of tracheostomy Social History Smoking Status: Unknown if ever smoked Hx Alcohol Use: No Hx Substance Use: No Preferred Language: Finnish Communication Ability: Effective Beliefs That Will Affect Care: None Current Living Situation: Rehab Current Living Situation Comment: [facility] Feels Safe at Home: Yes Safety Concerns: Feels Safe At This Time Assistive Devices: Glasses, Mechanical Lift, Oxygen - at Night and Wheelchair Review of Systems Review of Systems: unobtainable Physical Exam Physical Exam: NAD sleeping comfortably Steele with yellow urine in the bag Results & Data ([facility]) Vital Signs (Past 12 Hours) Vital Signs Temp Pulse Pulse Resp BP Pulse Ox 03/25/21 16:56 36.8 C 76 19 93/61 L 94 03/25/21 16:00 79 03/25/21 15:16 81 25 H 92/57 L 94 03/25/21 14:57 19 83/58 L 96 03/25/21 13:56 77 24 103/58 L 95 03/25/21 12:57 82 14 107/56 L 99 03/25/21 11:00 86 19 99 03/25/21 10:00 84 25 H 93 03/25/21 08:05 79 14 109/67 99 03/25/21 08:00 76 03/25/21 07:06 77 16 123/63 98 03/25/21 06:06 80 18 98/61 L 100 PG Care Time/CCT Total # of Minutes Spent Total Time Spent with Patient: Total time spent is greater than 50% in coordination of care (as documented) at patient's floor/unit and/or counseling patient: Coding Level of Care Code 24917 Initial Inpt Care Lvl 2 Diagnoses Hematuria, gross R31.0
--- NOTE | 2021-03-25 18:36 | Hospitalist Progress Note ---
Date of Service March 25, 2021 Assessment & Plan (1) AICD discharge: (2) Hematuria, gross: (3) Severe left ventricular systolic dysfunction: Plan: 75 yo M w/ PMH of Afib s/p ablation, HTN, V Tac, GBS complicated with critical illness polyneuropathy l/t acute hypoxemic resp failure s/p trach sent 03/24 from [facility] for hematuria, and had defibrillator fired 3 times while in the ED. He was admitted and is being managed for the following: #. ICD shock Interrogation reveals dysrythmia (Afib w/ very RVR Vs V Tach) and was shocked 3 times around 10 PM 03/24 Continue to monitor electrolytes and replace as needed Cardiology on board: Amiodarone drip, continue with metoprolol, off of Eliquis for now given hematuria Evaluate for restarting Eliquis upon discharge. #. Hematuria #. Possible UTI Patient was attempted Izaguirre while at [facility] as he was being straight cathed 4-5 times a day Hematuria secondary to traumatic catheterization, currently under control. Urology on board - no further interventions needed. Hemoglobin at presentation 12.5, decreasing, monitor daily Urine analysis suggestive of UTI, preliminary urine culture showing GPC, WBC elevated at presentationuptrending, await blood culture Continue with Zosyn #. Pressure ulcers and abdominal pain: Recent Izaguirre obstruction. CTAP unremarkable for acute process. Antibiotics as above. #. History of Guillain-[place] syndrome: Currently he is moving his extremities. Transfer back to rehab when stable. On trach collar. #. History of hypertension: Currently blood pressure is low. We will monitor. On lisinopril and metoprolol tartrate, withholding parameters. #. Possible congestive heart failure: On Lasix, which we will continue. Currently getting fluids. Will monitor for any volume overload. Admitting echo: Severely reduced LV systolic function with EF of 25% #. A fib s/p ablation one year ago as per . on metoprolol. currently on amiodarone drip. Eliquis held for hematuria. #. Deep venous thrombosis prophylaxis: We will place him on sequential compression devices for now. Admission and Anticipated Discharge Date Admission Date: March 25, 2021 Subjective Patient was lying in bed, NAD, on 4 L oxygen via tracheostomy. Defibrillator shocked 3 times overnight. Patient denies fever/chills/cough/belly pain/acute change in his bowel habit. He does have hematuria. 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 Physical Exam Physical Exam: GENERAL: Alert and oriented x3. NAD, on 4 L oxygen via tr acheostomy tube. HEENT: No pallor, no icterus. Pupils equal, round and reactive to light. Oral mucosa moist. Tracheostomy tube in situ NECK: No JVD, no neck masses. HEART: S1 and S2 heard. Regular rate and rhythm. No murmur, no gallop. RESPIRATORY SYSTEM: Normal AP diameter. No accessory muscle use. No wheezing, no crackles. ABDOMEN: Soft, bowel sounds present, nontender, no distention. PEG tube in situ CENTRAL NERVOUS SYSTEM: Alert and oriented x3. No facial droop. Speech is clear. Obeys simple commands. Will gross lower extremity, can move upper extremity. EXTREMITIES: No edema, no erythema seen. Results & Data Results & Data ([facility]) Vital Signs (Past 12 Hours) Vital Signs Temp Pulse Pulse Resp BP Pulse Ox 03/25/21 18:01 76 19 93/52 L 98 03/25/21 17:56 73 17 106/64 99 03/25/21 16:56 36.8 C 76 19 93/61 L 94 03/25/21 16:00 79 03/25/21 15:16 81 25 H 92/57 L 94 03/25/21 14:57 19 83/58 L 96 03/25/21 13:56 77 24 103/58 L 95 03/25/21 12:57 82 14 107/56 L 99 03/25/21 11:00 86 19 99 03/25/21 10:00 84 25 H 93 03/25/21 08:05 79 14 109/67 99 03/25/21 08:00 76 03/25/21 07:06 77 16 123/63 98
[2021-03-25] MEDS: VANCOMYCIN HCL 1,250 MG in SODIUM CHLORIDE 0.9% 250 ML IV SCH (20:56)
[2021-03-25] MEDS: LATANOPROST 0.005% OP SOLN 2.5 ML BTL OPB SCH (20:58)
[2021-03-25] MEDS: MELATONIN 3 MG TAB PO SCH (20:59)
[2021-03-25] MEDS: MIRTAZAPINE TAB 15 MG TAB GT SCH (20:59)
[2021-03-26] MEDS: CHLORHEXIDINE GLUCONATE 0.12% 480 ML MT SCH ×7 (00:15→23:55)
[2021-03-26] MEDS: PIPERACILLIN/TAZOBACTAM 3.375 GM in DEXTROSE 5% 100 ML IV SCH ×2 (00:15→08:34)
[2021-03-26] MEDS: guaiFENesin SUGAR FREE 100 MG/5 ML UDC GT SCH ×5 (00:15→23:56)
[2021-03-26] MEDS: AMIODARONE / D5W 360 MG/200 ML BAG IV SCH ×2 (04:37→16:34)
[2021-03-26 05:32] LABS: Basophils # (auto) 0.03 K/uL (0-0.2); Basophils % (auto) 0.4 %; Eosinophils # (auto) 0.09 K/uL (0-0.5); Eosinophils % (auto) 1.2 %; Hematocrit (blood only) 28.7 % (42-52); Hemoglobin 9.1 g/dL (14.0-18.0); Immature Granulocytes # (auto) 0.01 K/uL (0.00-0.02); Immature Granulocytes % (auto) 0.1 %; Lymphocytes # (auto) 1.79 K/uL (1.2-3.4); Lymphocytes % (auto) 24.4 %; Mean Corpuscular Hemoglobin 29.6 pg (25-34); Mean Corpuscular Hgb Conc 31.7 g/dL (32-36); Mean Corpuscular Volume 93.5 fL (80-100); Mean Platelet Volume 11.1 fL (7.4-10.4); Monocytes % (auto) 8.2 %; Neutrophils # (auto) 4.82 K/uL (1.4-6.5); Neutrophils % (auto) 65.7 %; Platelet Count 221 K/uL (130-400); RDW Coefficient of Variation 16.3 % (11.5-14.5); RDW Standard Deviation 55.9 fL (36.4-46.3); Red Blood Count 3.07 M/uL (4.7-6.1); White Blood Count 7.34 K/uL (4.8-10.8)
[2021-03-26] MEDS: METOPROLOL TARTRATE 50 MG TAB PEG SCH ×3 (05:37→21:23)
[2021-03-26 06:03] LABS: Albumin Globulin Ratio 0.7 (0.9-2); Albumin Level 2.3 gm/dl (3.4-5.0); Bilirubin,Total 0.4 mg/dl (0.2-1); Calcium 8.6 mg/dl (8.5-10.1); Creatinine Clr Calc Pharmacy 247.1 ml/min; Est GFR (African American) 146.6 ml/min; Est GFR (Non-African American) 126.5 ml/min; Globulin 3.4 gm/dl (2.5-4.0); Magnesium 1.7 mg/dl (1.8-2.4); Total Protein 5.7 gm/dl (6.4-8.2)
[2021-03-26 07:49] LABS: Potassium 2.6 mmol/L (3.5-5.1)
[2021-03-26] MEDS ORDERED: POTASSIUM CHLORIDE CRTAB 20 MEQ TABCR PO STA (07:53)
[2021-03-26] MEDS ORDERED: POTASSIUM CHLORIDE 20 MEQ/15 ML UDC PO STA (08:20)
--- NOTE | 2021-03-26 08:22 | Critical Care Progress Note ---
Date of Service March 26, 2021 Assessment & Plan (1) Admitted to intensive care unit: Plan: Reason Critically Ill: 75-year-old male with 3 separate runs of V. fib with subsequent defibrillation of AICD requiring close hemodynamic monitoring. NEURO - * CAM ICU: NEGATIVE * Guillain-[place] syndrome: * Recent extensive stay [facility] with him support and LTAC in [place]. * Resulted in paralysis in the upper and lower extremities as well as requiring long-term intubation with subsequent tracheostomy tube placement with PEG tube placement as well. * Patient has regained ability to breathe on his own through tracheostomy tube in 4 L nasal cannula. * Patient able to eat on his own as well. * Remains with extreme weakness of the lower extremities bilaterally. * Has regained moderate strength to the upper extremities bilaterally. * Chronic pain: * As needed oxycodone as previously prescribed. CARDIAC/VASCULAR - * Ventricular fibrillation with AICD discharge x3: * Patient received amiodarone bolus and ongoing drip. * Will add supplemental magnesium. * Continue to monitor closely in the ICU. * A. fib with RVR: Resolved * Reported chronic. * Continue with home medications as tolerated. * Anticoagulated on apixaban. * Sinus rhythm with frequent PVCs * Monitor on telemetry. RESPIRATORY - * Chronic respiratory failure: * Patient with tracheostomy tube placement. * Requiring 4 L nasal cannula which she has previously required at home secondary to history of COPD. GI/NUTRITION - * Progress diet as tolerated. * PEG tube in place, however patient reports that he has not required feeding from this the last several weeks. * Restart diet RENAL/LYTES - * No significant electrolyte derangements. * Supplement magnesium as needed in the setting of V. fib. * Maximize electrolytes in the setting of V. fib. * Discontinue IV fluids - * Izaguirre catheter issue: * Initially with hematuria status post Izaguirre catheter placement. * Seems to have improved status post replacement of Izaguirre catheter. * Patient with ongoing discomfort. * Izaguirre in place -management per urology: Leave in place ENDO - * No history of diabetes or thyroid disease. * BSGs per unit protocol. ISS --> gtt per unit policy. HEME - * Stable H&H. * Monitor for drop in blood volume status post hematuria. ID - * Question of UTI. * Currently covered with Zosyn. * Awaiting sensitivities LINES/IV ACCESS - * PIVs x1 * Izaguirre catheter * PEG tube * Tracheostomy tube DVT PROPHYLAXIS - * Anticoagulated on apixaban * SCDs Stable for downgrade out of ICU (2) Ventricular fibrillation: (3) Atrial fibrillation with rapid ventricular response: (4) Malfunction of Izaguirre catheter: (5) Hematuria: Admission and Anticipated Discharge Date Admission Date: March 25, 2021 Subjective No overnight events, complains of mucus production able to cough and clear his secretions. Physical Exam Physical Exam: General: Alert. nontoxic. Skin: Warm, dry, Head: Atraumatic Ears, nose, mouth and throat: airway patent Cardiovascular: Normal peripheral perfusion Respiratory: no respiratory distress Gastrointestinal: Non distended Musculoskeletal: No deformity, flaccid paralysis Results & Data Results & Data ([facility]) Vital Signs (Past 12 Hours) Vital Signs Temp Pulse Resp BP Pulse Ox 03/26/21 05:56 72 18 116/79 97 03/26/21 04:56 83 15 90/54 L 97 03/26/21 03:56 36.8 C 71 15 104/65 97 03/26/21 02:56 86 16 115/71 94 03/26/21 01:56 81 17 105/59 L 95 03/26/21 00:57 36.7 C 85 24 104/55 L 97 03/25/21 23:56 78 17 114/66 97 03/25/21 22:56 67 15 112/66 98 03/25/21 21:56 70 15 93/55 L 97 03/25/21 20:56 36.7 C 80 16 106/68 97 Coding Level of Care Code 92378 Subseq Hosp Care Lvl 3 Diagnoses Admitted to intensive care unit Z78.9 Ventricular fibrillation I49.01 Atrial fibrillation with rapid ventricular response I48.91 Malfunction of Izaguirre catheter T83.011A Encounter type: initial encounter Hematuria R31.0 Hematuria type: gross (1) Malfunction of Izaguirre catheter Encounter type: initial encounter Qualified Code(s): T83.011A - Breakdown (mechanical) of indwelling urethral catheter, initial encounter (2) Hematuria Hematuria type: gross Qualified Code(s): R31.0 - Gross hematuria
[2021-03-26] MEDS: SODIUM CHLORIDE 0.9% 1000ML 1,000 ML IV SCH (08:26)
[2021-03-26] MEDS: MAGNESIUM SULFATE / D5W 1 GM/100 ML BAG IV SCH ×2 (08:33→10:51)
[2021-03-26] MEDS: FUROSEMIDE 40 MG TAB PO SCH ×2 (08:34→16:35)
[2021-03-26] MEDS: CHOLECALCIFEROL 1,000 UNITS 25 MCG TAB PEG SCH (08:34)
[2021-03-26] MEDS: LANSOPRAZOLE 30 MG SOLTAB PEG SCH ×2 (08:34→16:35)
[2021-03-26] MEDS: DOCUSATE SODIUM SYRUP 100 MG/10 ML UDC PEG SCH ×2 (08:35→21:21)
[2021-03-26] MEDS: lisinopril 2.5 MG TAB PO SCH (08:35)
[2021-03-26] MEDS: LIDOCAINE 5% 1 PATCH TD SCH (08:35)
[2021-03-26] MEDS: SULFA/TRIMETH SUSP 800/160MG 20ML UDC PEG SCH (08:36)
[2021-03-26] MEDS: NYSTATIN CR 15 GM TUBE EXT SCH ×2 (08:36→21:22)
[2021-03-26] MEDS: VANCOMYCIN HCL 1,250 MG in SODIUM CHLORIDE 0.9% 250 ML IV SCH (08:37)
--- NOTE | 2021-03-26 09:17 | Electrocardiogram Report ---
Test Reason : Blood Pressure : / mmHG Vent. Rate : 080 BPM Atrial Rate : 080 BPM P-R Int : 182 ms QRS Dur : 128 ms QT Int : 442 ms P-R-T Axes : 075 -16 084 degrees QTc Int : 509 ms Sinus rhythm with Premature supraventricular complexes Non-specific intra-ventricular conduction block Abnormal ECG When compared with ECG of 24-MAR-2021 21:57, (unconfirmed) Premature ventricular complexes are no longer Present Vent. rate has decreased BY 60 BPM Questionable change in QRS duration Confirmed by Hal Fernández ([id number]) on 03/26/2021 9:17:21 AM Referred By: REFERRED SELF Confirmed By:Hal Fernández
--- NOTE | 2021-03-26 09:18 | Electrocardiogram Report ---
Test Reason : Blood Pressure : / mmHG Vent. Rate : 080 BPM Atrial Rate : 080 BPM P-R Int : 200 ms QRS Dur : 136 ms QT Int : 448 ms P-R-T Axes : 052 -09 077 degrees QTc Int : 516 ms Poor data quality, interpretation may be adversely affected Sinus rhythm with occasional Premature ventricular complexes and Premature atrial complexes Non-specific intra-ventricular conduction block Abnormal ECG When compared with ECG of 25-MAR-2021 06:29, (unconfirmed) Premature ventricular complexes are now Present Confirmed by Hal Fernández ([id number]) on 03/26/2021 9:18:15 AM Referred By: REFERRED SELF Confirmed By:Hal Fernández
[2021-03-26] MEDS ORDERED: POTASSIUM CHLORIDE CRTAB 20 MEQ TABCR PO ONE (10:30)
[2021-03-26] MEDS: POTASSIUM CHLORIDE / WTR 10 MEQ/100 ML PLCT IV SCH ×4 (10:54→14:49)
[2021-03-26] MEDS ORDERED: POTASSIUM CHLORIDE PWD 20 MEQ PACK PO ONE (10:54)
--- NOTE | 2021-03-26 11:32 | Cardiology Progress Note ---
Date of Service March 26, 2021 Assessment & Plan (1) AICD discharge: (2) Hematuria: (3) Severe left ventricular systolic dysfunction: (4) Atrial fibrillation with rapid ventricular response: Plan: As previously noted, interrogation suggests AICD discharges in the setting of very rapid atrial fibrillation in excess of 200 bpm, or less likely ventricular tachycardia. He remains in sinus rhythm on amiodarone infusion, and remains on metoprolol tartrate 50 mg every 8 hours administered via his PEG tube. LVEF this hospital stay 25%, as compared to 45 to 50% as noted in early January in [place], however, unaware of his baseline LVEF (which given AICD, I ant icipate he may have prior history of CM). Plan to transition him to oral amiodarone, but I think it is prudent to wait until after his potassium level of 2.6 today has been corrected. He has receiv ed IV replacement as well as potassium elixir via his PEG tube. Magnesium replacement also previously ordered. Continue furosemide 40 mg p.o. twice daily which is his prior to admission dose. Continue empiric antibiotics for suspected sepsis. Eliquis is on hold having presented with gross hematuria, this may have been due to manipulation of his Izaguirre catheter. Clear yellow urine noted at present. I think we need to consider resuming Eliquis for both stroke prophylaxis in the setting of paroxysmal atrial fibrillation with recent cardioversion performed via his device, and likely more importantly for DVT/PE prophylaxis given his chronic bedbound state.Will collaborate with other providers. I called his primary medical billing and coding specialist's office, [facility], and left a message for a provider to call me back to help determine additional details with regards to his history as to what his baseline ejection fraction is, the indication that prompted AICD placement in 2019, details of past work-up for ischemic heart disease, and details with regards to what ablation procedure has been performed in the past. Also I will communicate updates of what is transpired recently with the patient in an effort to coordinate future care between our institutions. Admission and Anticipated Discharge Date Admission Date: March 25, 2021 Subjective Patient seen in cardiology follow-up of cardiomyopathy, paroxysmal atrial fibrillation, paroxysmal ventricular tachycardia, AICD discharges. He remains hospitalized in ICU, room 110. He states that he is feeling well. He denies any chest discomfort or shortness of breath. Telemetry reveals sinus rhythm at 85 bpm with occasional PVCs. Amiodarone infusion continues at 0.5 mg/min. Review of Systems Review of Systems: All systems reviewed & are unremarkable except as noted in HPI & below Neurologic: Ongoing generalized weakness Physical Exam Physical Exam: Temp Pulse Resp BP Pulse Ox 36.8 C 76 18 98/61 L 100 03/25/21 03:16 03/25/21 08:00 03/25/21 06:06 03/25/21 06:06 03/25/21 06:06 Constitutional: + ill appearing (Chronically ill in appearance, no acute distress) Respiratory: Auscultation: + diminished lung sounds (Mildly decreased breath sounds at the bases); no crackles, no rales and no wheezes Cardiovascular: RRR, no murmur, no edema Chest (Breasts): Additional Comments: Left infraclavicular AICD pocket clean dry and intact, no erythema Gastrointestinal (Abdomen): normal bowel sounds, soft, nontender, no hepatosplenomegaly Neurologic: Patient is able to lift his right arm He is able to move the left arm minimally, but not as well as his right He is able to wiggle his toes. This degree of weakness is unchanged compared to his recent baseline per the patient's description to me Results & Data ([place]) Vital Signs (Past 12 Hours) Vital Signs Temp Pulse Resp BP Pulse Ox 03/26/21 08:00 37.0 C 72 18 116/79 97 03/26/21 05:56 72 18 116/79 97 03/26/21 04:56 83 15 90/54 L 97 03/26/21 03:56 36.8 C 71 15 104/65 97 03/26/21 02:56 86 16 115/71 94 03/26/21 01:56 81 17 105/59 L 95 03/26/21 00:57 36.7 C 85 24 104/55 L 97 03/25/21 23:56 78 17 114/66 97 (1) Hematuria Hematuria type: gross Qualified Code(s): R31.0 - Gross hematuria
[2021-03-26] MEDS ORDERED: APIXABAN 5 MG TABLET PO ONE (12:08)
[2021-03-26] MEDS: DAPTOmycin 625 MG in SYRINGE 0 ML IV SCH (14:48)
--- NOTE | 2021-03-26 15:15 | Communication Note ---
Date of Service: March 26, 2021 Outside records from [facility], [place], arrived via fax and were reviewed. 07/31/2016: Treadmill EKG stress report describes atrial fibrillation, PVCs 07/31/2016: Resting echocardiogram, severe global left ventricular hypokinesis LVEF 25-30% moderate mitral regurgitation, mild tricuspid regurgitation, pulmonary artery systolic pressure estimated be 43 mmHg 08/30/2016: Cardiac catheterization, codominant coronary system Left main free of atherosclerotic disease LAD, small vessel reaching the apex, eccentric 20% mid segment stenosis First diagonal branch, medium sized vessel, 50% proximal stenosis Circumflex coronary artery, large vessel, luminal irregularities Right coronary artery, luminal irregularities, 20% stenosis distally Summary: Nonobstructive coronary atherosclerosis Was therefore diagnosed with a nonischemic cardiomyopathy, severe left ventricular systolic dysfunction noted that time, as well as atrial fibrillation. Dec, 2016, single-chamber [facility] AICD placed in setting of syncope and severe LV systolic dysfunction, chart also mentions history of nonsustained ventricular tachycardia March,, normal LVEF 12/03/2018, treatment with amiodarone discontinued 09/25/2019: Emergency room visit AICD discharge for differential diagnosis of ventricular tachycardia or rapid atrial fibrillation, difficult to assess given single-chamber AICD. Subsequent electrophysiology note describes that the AICD discharge was likely an inappropriate shock secondary to atrial tachycardia or atrial flutter with a cycle length of around 340 ms -Amiodarone reinitiated 02/07/2020, electrophysiology progress note describes "atrial fibrillation ablation ". 03/29/2020: Right atrial lead implantation and upgrade to dual-chamber [facility] AICD for indication of "inappropriate shocks and paroxysmal atrial fibrillation ". 11/01/2019, Lexiscan nuclear stress test: Sinus rhythm with PVCs noted on EKG, normal perfusion, no evidence of ischemia, LVEF 48% 01/12/2021, inpatient electrophysiology consultation [facility], inappropriate atrial fibrillation with rapid ventricular response, AICD discharges had occurred due to in the setting of septic shock 01/25/2021, echocardiogram performed [facility], mild left atrial dilatation, somewhat technically limited exam. Description of the report, LVEF 45-50%.
[2021-03-26 15:46] LABS: BUN Creatinine Ratio 21.7 (10-20); Calcium 8.4 mg/dl (8.5-10.1); Creatinine Clr Calc Pharmacy 183.6 ml/min; Est GFR (African American) 131.1 ml/min; Est GFR (Non-African American) 113.1 ml/min; Magnesium 2.1 mg/dl (1.8-2.4); Phosphorus 2.4 mg/dl (2.5-4.9)
[2021-03-26 15:53] LABS: Potassium 3.7 mmol/L (3.5-5.1)
[2021-03-26] MEDS ORDERED: POTASSIUM PHOS 3 MMOL/1 ML INFUSION IV STA (15:58)
--- NOTE | 2021-03-26 16:04 | Hospitalist Progress Note ---
Date of Service March 26, 2021 Assessment & Plan (1) Gram-positive bacteremia: (2) AICD discharge: (3) Hematuria, gross: (4) Severe left ventricular systolic dysfunction: Plan: 75 yo M w/ PMH of Afib s/p ablation, HTN, V Tac, GBS complicated with critical illness polyneuropathy l/t acute hypoxemic resp failure s/p trach sent 03/24 from [facility] for hematuria, and had defibrillator fired 3 times while in the ED. He was admitted and is being managed for the following: #. ICD shock Interrogation reveals dysrythmia (Afib w/ very RVR Vs V Tach) and was shocked 3 times around 10 PM 03/24 LVEF this hospital stay 25% as compared to 40 to 45% in January. Continue to monitor electrolytes and replace as needed Cardiology on board: Amiodarone drip - plan to transition to oral amiodarone, continue with metoprolol, continue with home Lasix/Eliquis. #. Hematuria #. Possible UTI #. Gram-positive bacteremia Patient was attempted Izaguirre while at [facility] as he was being straight cathed 4-5 times a day Hematuria secondary to traumatic catheterization, currently under control, on Izaguirre catheter. Urology on board - no further interventions needed. Hemoglobin at presentation 12.5, stable around 9, monitor as needed Urine analysis suggestive of UTI, 03/24 urine culture positive for VRE E faecalis sensitive to daptomycin, WBC elevated at presentationdowntrending, 03/25 blood culture positive for GPC with in 24 hours, MRSA screen positive Was on Zosyn and Vanc for 1 to 2 days, changed to daptomycin 03/26 based on urine culture and sensitivity. Infectious disease consulted, awaiting recommendation #. Pressure ulcers and abdominal pain: Recent Izaguirre obstruction. CTAP unremarkable for acute process. Antibiotics as above. #. History of Guillain-[place] syndrome: Currently he is moving his extremities. Transfer back to rehab when stable. On trach collar. #. History of hypertension: Currently blood pressure is low. We will monitor. On lisinopril and metoprolol tartrate, withholding parameters. #. Possible congestive heart failure: On Lasix, which we will continue. Currently getting fluids. Will monitor for any volume overload. Admitting echo: Severely reduced LV systolic function with EF of 25% #. A fib s/p ablation one year ago as per . on metoprolol. currently on amiodarone drip. Jacklyn held for hematuria. #. Deep venous thrombosis prophylaxis: We will place him on sequential compression devices for now. Admission and Anticipated Discharge Date Admission Date: March 25, 2021 Subjective Patient was lying in bed semiupright, on 4 L oxygen by at that [his baseline], NAD, no issues overnight. He is eating and moving bowels okay. Complains of back pain due to sitting on the same position for the long time. Encourage movement every 1-2 hours as able. Denies fever/chills/chest pain/other review of symptoms. Urinary catheter draining yellow urine. Physical Exam Physical Exam: GENERAL: Alert and oriented x3. NAD, on 4 L oxygen via t racheostomy tube. HEENT: No pallor, no icterus. Pupils equal, round and reactive to light. Oral mucosa moist. Tracheostomy tube in situ NECK: No JVD, no neck masses. HEART: S1 and S2 heard. Regular rate and rhythm. No murmur, no gallop. RESPIRATORY SYSTEM: Normal AP diameter. No accessory muscle use. No wheezing, occasional crackles bilateral bases. ABDOMEN: Soft, bowel sounds present, nontender, no distention. PEG tube in situ CENTRAL NERVOUS SYSTEM: Alert and oriented x3. No facial droop. Speech is clear. Obeys simple commands. Lower extremity power 2/5 and upper extremity power 3 / 5. EXTREMITIES: No edema, no erythema seen. Results & Data Results & Data ([facility]) Vital Signs (Past 12 Hours) Vital Signs Temp Pulse Resp BP Pulse Ox Pulse Ox 03/26/21 13:28 96 03/26/21 12:58 96 03/26/21 11:34 88 20 116/85 98 03/26/21 10:56 85 20 116/75 94 03/26/21 09:56 83 16 114/71 95 03/26/21 08:56 85 25 H 118/66 03/26/21 08:00 37.0 C 72 18 116/79 97 03/26/21 07:56 77 16 119/71 99 03/26/21 05:56 72 18 116/79 97 03/26/21 04:56 83 15 90/54 L 97 03/26/21 03:56 36.8 C 71 15 104/65 97
[2021-03-26] MEDS ORDERED: POTASSIUM PHOSPHATE 15 MMOL in SODIUM CHLORIDE 0.9% 250 ML IV ONE (16:15)
[2021-03-26] MEDS: AMIODARONE 200 MG TAB PO SCH (17:55)
[2021-03-26] MEDS ORDERED: VANCOMYCIN TROUGH ONE (20:30)
[2021-03-26] MEDS: LATANOPROST 0.005% OP SOLN 2.5 ML BTL OPB SCH (21:21)
[2021-03-26] MEDS: MELATONIN 3 MG TAB PO SCH (21:22)
[2021-03-26] MEDS: MIRTAZAPINE TAB 15 MG TAB GT SCH (21:22)
[2021-03-27] MEDS: oxyCODONE HCL SOLN 5 MG/5 ML UDC GT PRN (02:26)
[2021-03-27] MEDS: AMIODARONE / D5W 360 MG/200 ML BAG IV SCH ×2 (03:39→16:47)
[2021-03-27] MEDS: CHLORHEXIDINE GLUCONATE 0.12% 480 ML MT SCH ×5 (03:39→21:29)
[2021-03-27 05:34] LABS: BUN Creatinine Ratio 21.3 (10-20); Calcium 8.6 mg/dl (8.5-10.1); Creatinine Clr Calc Pharmacy 208.4 ml/min; Est GFR (African American) 138.1 ml/min; Est GFR (Non-African American) 119.1 ml/min; Magnesium 1.9 mg/dl (1.8-2.4); Potassium 3.4 mmol/L (3.5-5.1)
[2021-03-27 05:43] LABS: Hematocrit (blood only) 29.9 % (42-52); Hemoglobin 9.8 g/dL (14.0-18.0); Mean Corpuscular Hemoglobin 29.9 pg (25-34); Mean Corpuscular Hgb Conc 32.8 g/dL (32-36); Mean Corpuscular Volume 91.2 fL (80-100); Mean Platelet Volume 11.3 fL (7.4-10.4); Platelet Count 255 K/uL (130-400); RDW Coefficient of Variation 16.2 % (11.5-14.5); RDW Standard Deviation 54.3 fL (36.4-46.3); Red Blood Count 3.28 M/uL (4.7-6.1); White Blood Count 7.14 K/uL (4.8-10.8)
[2021-03-27] MEDS: METOPROLOL TARTRATE 50 MG TAB PEG SCH ×4 (05:50→21:32)
[2021-03-27] MEDS: guaiFENesin SUGAR FREE 100 MG/5 ML UDC GT SCH ×3 (05:50→16:47)
[2021-03-27 05:56] LABS: Phosphorus 3.5 mg/dl (2.5-4.9)
[2021-03-27] MEDS: CYCLOBENZAPRINE HCL 10 MG TAB PO PRN ×3 (06:07→21:56)
[2021-03-27] MEDS ORDERED: POTASSIUM CHLORIDE CRTAB 20 MEQ TABCR PO STA ×2 (06:35→08:46)
[2021-03-27] MEDS: DAPTOmycin 625 MG in SYRINGE 0 ML IV SCH (08:03)
[2021-03-27] MEDS: APIXABAN 5 MG TABLET PO SCH ×2 (08:03→21:30)
[2021-03-27] MEDS: AMIODARONE 200 MG TAB PO SCH ×2 (08:03→16:47)
[2021-03-27] MEDS: lisinopril 2.5 MG TAB PO SCH (08:03)
[2021-03-27] MEDS: LANSOPRAZOLE 30 MG SOLTAB PEG SCH ×2 (08:04→16:47)
[2021-03-27] MEDS: FUROSEMIDE 40 MG TAB PO SCH (08:04)
[2021-03-27] MEDS: CHOLECALCIFEROL 1,000 UNITS 25 MCG TAB PEG SCH (08:04)
[2021-03-27] MEDS: LIDOCAINE 5% 1 PATCH TD SCH (08:05)
[2021-03-27] MEDS: DOCUSATE SODIUM SYRUP 100 MG/10 ML UDC PEG SCH ×2 (08:05→21:30)
[2021-03-27] MEDS: NYSTATIN CR 15 GM TUBE EXT SCH ×2 (08:06→21:31)
[2021-03-27] MEDS: MAGNESIUM OXIDE 400 MG TAB PO SCH (12:02)
--- NOTE | 2021-03-27 13:43 | Cardiology Progress Note ---
Date of Service March 27, 2021 Assessment & Plan (1) AICD discharge: (2) Atrial fibrillation with rapid ventricular response: (3) Severe left ventricular systolic dysfunction: (4) VRE (vancomycin-resistant Enterococci) infection: Plan: 75-year-old male with previous history of nonischemic cardiomyopathy, paroxysmal atrial fibrillation presents with long course of illness that began in early January,, ventilator dependent for over 3 weeks in [place], with myopathy symptoms, now has tracheostomy, PEG tube, chronic Izaguirre catheter and presented to this institution acutely on 03/24 with Izaugirre catheter obstruction and gross hematuria. A Izaguirre catheter is being replaced, patient was noted to have developed recurrent atrial fibrillation with rapid ventricular response in excess of 200 bpm prompting AICD discharge x3 with subsequent conversion to sinus rhythm. LVEF 25% this admission, having been 45 -50% when hospitalized in early January, but has had noted severe left ventricular systolic dysfunction in the setting of atrial fibrillation in the past as per notes obtained from [facility] and that is why he has a history of dual-chamber AICD implantation. -Patient's recent dose of furosemide 40 mg twice daily has been maintained, with noted 5.9 L urine output, net 4.5 L negative in the last 24 hours, potassium 3.4. -Patient is not examined is being volume overloaded at present, and I think it is prudent to hold his diuretic therapy, and ensure that his potassium has been appropriate replaced especially given his risk for recurrent arrhythmias. I have requested a repeat chemistry panel to be performed at 1400. -Continue IV amiodarone, as well as amiodarone 200 mg twice daily via PEG tube. -Continue metoprolol tartrate 50 mg every 8 hours -Eliquis 5 mg twice daily reinitiated 03/26/2021, no hematuria has occurred to date. -Vancomycin-resistant Enterococcus has grown from his urine culture, and 1/2 blood cultures is preliminarily positive for VRE. -Continue daptomycin. Admission and Anticipated Discharge Date Admission Date: March 25, 2021 Subjective Patient seen in cardiology follow-up. He is in good spirits. Telemetry reveals sinus rhythm in the 80s with occasional PVCs. No recurrence of atrial fibrillation. He remains on an amiodarone infusion. Review of Systems Review of Systems: All systems reviewed & are unremarkable except as noted in HPI & below Neurologic: Ongoing generalized weakness Physical Exam Physical Exam: Temp Pulse Resp BP Pulse Ox 36.7 C 74 17 105/67 92 03/27/21 12:00 03/27/21 12:00 03/27/21 12:00 03/27/21 12:00 03/27/21 12:00 Constitutional: + ill appearing (Chronically ill in appearance, no acute distress) Respiratory: normal respiratory effort, lungs clear to auscultation Cardiovascular: RRR, no murmur, no edema Chest (Breasts): Additional Comments: Left infraclavicular AICD pocket clean dry and intact, no erythema Gastrointestinal (Abdomen): normal bowel sounds, soft, nontender, no hepatosplenomegaly PEG tube site with very minimal erythema, no drainage Neurologic: Diffuse muscle weakness, spares right upper extremity to some degree, able to wiggle toes Genitourinary: Izaguirre catheter in place draining clear yellow urine Results & Data ([facility]) Vital Signs (Past 12 Hours) Vital Signs Temp Pulse Pulse Resp BP BP Pulse Ox 03/27/21 12:00 36.7 C 74 17 105/67 92 03/27/21 07:26 36.9 C 80 19 108/66 99 03/27/21 05:51 78 18 95/58 L 94 03/27/21 04:56 72 15 96/59 L 96 03/27/21 03:48 36.6 C 93 H 16 99/50 L 94 03/27/21 03:41 77 13 99/50 L 94 Diagnostic Findings EKG performed today reveals sinus rhythm at 75 bpm with occasional PVCs
[2021-03-27] MEDS ORDERED: POTASSIUM CHLORIDE CRTAB 20 MEQ TABCR PO ONE (14:45)
[2021-03-27 15:08] LABS: BUN Creatinine Ratio 15.5 (10-20); Calcium 8.8 mg/dl (8.5-10.1); Creatinine Clr Calc Pharmacy 158.3 ml/min; Est GFR (Non-African American) 106.1 ml/min; Potassium 3.9 mmol/L (3.5-5.1)
--- NOTE | 2021-03-27 16:08 | Hospitalist Progress Note ---
Date of Service March 27, 2021 Assessment & Plan (1) VRE (vancomycin-resistant Enterococci) infection: (2) Gram-positive bacteremia: (3) AICD discharge: (4) Hematuria, gross: (5) Severe left ventricular systolic dysfunction: Plan: 75 yo M w/ PMH of Afib s/p ablation, HTN, V Tac, GBS complicated with critical illness polyneuropathy l/t acute hypoxemic resp failure s/p trach sent 03/24 from [facility] for hematuria, and had defibrillator fired 3 times while in the ED. He was admitted and is being managed for the following: #. ICD shock Interrogation reveals dysrythmia (Afib w/ very RVR Vs V Tach) and was shocked 3 times around 10 PM 03/24 LVEF this hospital stay 25% as compared to 40 to 45% in January. Continue to monitor electrolytes and replace as needed. Cardiology on board: Initially amiodarone drip - being transitioned to oral amiodarone, continue with metoprolol, Eliquis reinitiated 03/26/21 I's and O: neg 2.3 L, Lasix being held pending reassessment to ensure normal potassium level. May need more than once daily potassium level to ensure he has stable potassium level due to high risks of arrhythmia. #. Hematuria #. Possible UTI #. Gram-positive bacteremia Patient was attempted Izaguirre while at [facility] as he was being straight cathed 4-5 times a day Hematuria secondary to traumatic catheterization, currently under control, on Izaguirre catheter. Urology on board - no further interventions needed. Hemoglobin at presentation 12.5, stable around 9, no further hematuria has occurred, continue to monitor. H&H as needed. Urine analysis suggestive of UTI, 03/24 urine culture positive for VRE E faecalis sensitive to daptomycin, WBC elevated at presentationdowntrending, 03/25 blood culture [1/4] positive for probable Enterococcus, MRSA screen positive. 03/27 blood culture: Pending. Was on Zosyn and Vanc for 1 to 2 days, changed to daptomycin 03/26 based on urine culture and sensitivity. 03/27 conversation with infectious disease over the [employer] textrelayed patient's current status including 1 of 4 blood culture positive for probable Enterococcus and urine culture positive for VRE E faecalis sensitive to daptomycin. TTE was done which showed worsening ejection fraction, no concern for IE. But definitely we need MARIA INES, given patient's poor status [poor ejection fraction, defibrillator in place, tracheostomy status, hypoxic respiratory failure, quadriparesis] this will mean a greater insult on his cardiac condition as per discussion with cardiology. Sent a repeat blood culture 03/27 and when negative reconnect with infectious disease for further recommendation on antibiotic. #. Pressure ulcers and abdominal pain: Recent Izaguirre obstruction. CTAP unremarkable for acute process. Antibiotics as above. #. History of Guillain-[place] syndrome: Currently he is moving his extremities. Transfer back to rehab when stable. On trach collar. #. History of hypertension: Currently blood pressure is low. We will monitor. On lisinopril and metoprolol tartrate, withholding parameters. #. Possible congestive heart failure: I's and O-. His hands and pedal swelling improving. Monitor for any volume overload. Admitting echo: Severely reduced LV systolic function with EF of 25% #. A fib s/p ablation one year ago as per . on metoprolol. currently on amiodarone drip/p.o. amiodarone. Continue with Eliquis. #. Deep venous thrombosis prophylaxis: SCDs. Eliquis Disposition: Awaiting repeat blood culture 03/27, then might require reconnecting with infectious disease when negative. CM working on getting him back to [facility]. Admission and Anticipated Discharge Date Admission Date: March 25, 2021 Subjective Patient was lying in bed semiupright, on 4 L oxygen by at trach [his baseline], NAD, no issues overnight. He is eating and moving bowels okay. He reports of feeling better today. Encourage movement every 1-2 hours as able. Denies fever/chills/chest pain/other review of symptoms. Urinary catheter draining yellow urine. Physical Exam Physical Exam: GENERAL: Alert and oriented x3. NAD, on 4 L oxygen via tracheostomy tube. HEENT: No pallor, no icterus. Pupils equal, round and reactive to light. Oral mucosa moist. Tracheostomy tube in situ NECK: No JVD, no neck masses. HEART: S1 and S2 heard. Regular rate and rhythm. No murmur, no gallop. RESPIRATORY SYSTEM: Normal AP diameter. No accessory muscle use. No wheezing, occasional crackles bilateral bases. ABDOMEN: Soft, bowel sounds present, nontender, no distention. PEG tube in situ CENTRAL NERVOUS SYSTEM: Alert and oriented x3. No facial droop. Speech is clear. Obeys simple commands. Lower extremity power 2/5 and upper extremity power 3 / 5. EXTREMITIES: Hand and pedal edema are improving, trace to 1+ edema, no erythema seen. Results & Data Results & Data ([facility]) Vital Signs (Past 12 Hours) Vital Signs Temp Pulse Pulse Resp BP BP Pulse Ox 03/27/21 15:26 36.8 C 81 20 111/75 97 03/27/21 12:00 36.7 C 74 17 105/67 92 03/27/21 07:26 36.9 C 80 19 108/66 99 03/27/21 05:51 78 18 95/58 L 94 03/27/21 04:56 72 15 96/59 L 96 03/27/21 03:48 36.6 C 93 H 16 99/50 L 94
[2021-03-27] MEDS: LATANOPROST 0.005% OP SOLN 2.5 ML BTL OPB SCH (21:29)
[2021-03-27] MEDS: MELATONIN 3 MG TAB PO SCH (21:30)
[2021-03-27] MEDS: MIRTAZAPINE TAB 15 MG TAB GT SCH (21:32)
[2021-03-28] MEDS: CHLORHEXIDINE GLUCONATE 0.12% 480 ML MT SCH ×6 (00:02→20:14)
[2021-03-28] MEDS: guaiFENesin SUGAR FREE 100 MG/5 ML UDC GT SCH ×4 (00:02→17:19)
[2021-03-28] MEDS: AMIODARONE / D5W 360 MG/200 ML BAG IV SCH (05:22)
[2021-03-28 05:28] LABS: BUN Creatinine Ratio 14.9 (10-20); Calcium 9.1 mg/dl (8.5-10.1); Creatinine Clr Calc Pharmacy 172.4 ml/min; Est GFR (African American) 127.4 ml/min; Est GFR (Non-African American) 109.9 ml/min; Magnesium 1.8 mg/dl (1.8-2.4); Potassium 3.9 mmol/L (3.5-5.1)
[2021-03-28] MEDS: METOPROLOL TARTRATE 50 MG TAB PEG SCH ×3 (06:29→20:16)
[2021-03-28] MEDS: DAPTOmycin 625 MG in SYRINGE 0 ML IV SCH (08:26)
[2021-03-28] MEDS: DOCUSATE SODIUM SYRUP 100 MG/10 ML UDC PEG SCH ×2 (08:26→20:16)
[2021-03-28] MEDS: POTASSIUM CHLORIDE 20 MEQ/15 ML UDC PEG SCH (08:26)
[2021-03-28] MEDS: LIDOCAINE 5% 1 PATCH TD SCH (08:26)
[2021-03-28] MEDS: AMIODARONE 200 MG TAB PO SCH ×2 (08:28→17:19)
[2021-03-28] MEDS: LANSOPRAZOLE 30 MG SOLTAB PEG SCH ×2 (08:28→17:19)
[2021-03-28] MEDS: CHOLECALCIFEROL 1,000 UNITS 25 MCG TAB PEG SCH (08:28)
[2021-03-28] MEDS: SULFA/TRIMETH SUSP 800/160MG 20ML UDC PEG SCH (08:28)
[2021-03-28] MEDS: lisinopril 2.5 MG TAB PO SCH (08:29)
[2021-03-28] MEDS: MAGNESIUM OXIDE 400 MG TAB PO SCH (08:29)
[2021-03-28] MEDS: APIXABAN 5 MG TABLET PO SCH ×2 (08:29→20:16)
[2021-03-28] MEDS: NYSTATIN CR 15 GM TUBE EXT SCH ×2 (08:30→20:17)
--- NOTE | 2021-03-28 08:58 | Cardiology Progress Note ---
Date of Service March 28, 2021 Assessment & Plan (1) AICD discharge: (2) Atrial fibrillation with rapid ventricular response: (3) Severe left ventricular systolic dysfunction: (4) VRE (vancomycin-resistant Enterococci) infection: Plan: 75-year-old male with previous history of nonischemic cardiomyopathy, paroxysmal atrial fibrillation presents with long course of illness that began in early January,, ventilator dependent for over 3 weeks in [place], with myopathy symptoms, now has tracheostomy, PEG tube, chronic Izaguirre catheter and presented to this institution acutely on 03/24 with Izaguirre catheter obstruction and gross hematuria. A Izaguirre catheter is being replaced, patient was noted to have developed recurrent atrial fibrillation with rapid ventricular response in excess of 200 bpm prompting AICD discharge x3 with subsequent conversion to sinus rhythm. LVEF 25% this admission, having been 45 -50% when hospitalized in early January, but has had noted severe left ventricular systolic dysfunction in the setting of atrial fibrillation in the past as per notes obtained from [facility] and that is why he has a history of dual-chamber AICD implantation. -Patient volume status remains negative, net 2.8 L in the last 24 hours. With noted significant diuresis on furosemide 40 mg twice daily in the last 48 hours with associated low potassium, which has since normalized. Potassium 3.9 this morning. We will supplement with potassium elixir 20 mEq via his PEG tube daily. I am going to continue to hold his furosemide for now in an effort to avoid volume depletion. Will likely reinitiate this on 03/29/2021. Monitor potassium especially given treatment with Bactrim. -Continue amiodarone loaded 200 mg twice daily via PEG tube. Discontinue IV amiodarone. -Continue metoprolol 50 mg every 8 hours. -Continue lisinopril 2.5 mg daily. -Continue Eliquis 5 mg twice daily for stroke prophylaxis in the setting of paroxysmal atrial fibrillation, and VTE prophylaxis. -Vancomycin-resistant Enterococcus has grown from his urine culture, and 1/2 blood cultures is preliminarily positive for VRE. -Continue daptomycin. Admission and Anticipated Discharge Date Admission Date: March 25, 2021 Subjective Patient seen in follow-up. He is alert, awake, and in good spirits this morning. accounts payable assistant is helping feed him his breakfast. Telemetry reveals sinus rhythm in the 80s with occasional PVCs, no atrial fibrillation. Amiodarone infusion continues. Review of Systems Review of Systems: All systems reviewed & are unremarkable except as noted in HPI & below Physical Exam Physical Exam: Temp Pulse Resp BP Pulse Ox 36.7 C 74 17 105/67 92 03/27/21 12:00 03/27/21 12:00 03/27/21 12:00 03/27/21 12:00 03/27/21 12:00 Constitutional: + ill appearing (Chronically ill in appearance, no acute distress) Respiratory: normal respiratory effort, lungs clear to auscultation Auscultation: + diminished lung sounds (Mildly decreased breath sounds at the bases); no crackles, no rales and no wheezes Cardiovascular: RRR, no murmur, no edema Gastrointestinal (Abdomen): normal bowel sounds, soft, nontender, no hepatosplenomegaly Neurologic: Patient able to lift both upper extremities at the elbow, he is stronger on the right upper arm, he is able to wiggle his toes, but still has severe weakness of his lower extremities. Genitourinary: Izaguirre catheter draining clear yellow urine. Results & Data ([facility]) Vital Signs (Past 12 Hours) Vital Signs Temp Pulse Resp BP Pulse Ox 03/28/21 07:20 36.8 C 03/28/21 00:56 86 23 110/66 98 03/27/21 21:37 87 18 123/68 99 03/27/21 20:56 83 14 118/75 99 Laboratory Results Comprehensive Metabolic Panel 03/27/21 03/28/21 Range/Units 14:36 04:37 Sodium 139 141 (136-145) mmol/L Potassium 3.9 3.9 (3.5-5.1) mmol/L Chloride 102 105 (98-107) mmol/L Carbon Dioxide 29 28 (21-32) mmol/L BUN 8 7 (7-18) mg/dl Creatinine 0.49 L 0.45 L (0.6-1.4) mg/dl Glucose 96 90 (70-99) mg/dl Calcium 8.8 9.1 (8.5-10.1) mg/dl Intake and Output 03/27/21 03/28/21 03/28/21 22:59 06:59 14:59 Intake Total 200 / 460 260 / 460 41.750 / 41.750 Output Total 1200 / 3350 500 / 3350 Balance -1000 / -2890 -240 / -2890 41.750 / 41.750 Intake: IV 200 / 400 200 / 400 41.750 / 41.750 Amiodarone / D5w 360 mg In 200 200 / 400 200 / 400 41.750 / 41.750 ml @ 0.5 MG/MIN 16.667 mls/hr IV .Q12H [facility] Rx#:[id number] Oral 0 / 60 60 / 60 Output: Urine Amount (Catheter) 1200 / 3350 500 / 3350 Izaguirre/Indwelling 1200 / 3350 500 / 3350
--- NOTE | 2021-03-28 09:11 | Electrocardiogram Report ---
Test Reason : Blood Pressure : / mmHG Vent. Rate : 075 BPM Atrial Rate : 075 BPM P-R Int : 184 ms QRS Dur : 132 ms QT Int : 460 ms P-R-T Axes : 026 -12 066 degrees QTc Int : 513 ms Poor data quality, interpretation may be adversely affected Sinus rhythm with Premature supraventricular complexes and Fusion complexes Non-specific intra-ventricular conduction block Abnormal ECG When compared with ECG of 26-MAR-2021 05:47, Fusion complexes are now Present Confirmed by Hal Fernández ([id number]) on 03/28/2021 9:11:19 AM Referred By: REFERRED SELF Confirmed By:Hal Fernánedz
--- NOTE | 2021-03-28 09:27 | Electrocardiogram Report ---
Test Reason : Blood Pressure : / mmHG Vent. Rate : 140 BPM Atrial Rate : 140 BPM P-R Int : 158 ms QRS Dur : 118 ms QT Int : 332 ms P-R-T Axes : 024 -30 094 degrees QTc Int : 506 ms Atrial fibrillation with rapid ventricular response Left axis deviation Cannot rule out Anterior infarct , age undetermined Abnormal ECG When compared with ECG of 20-JUL-2009 14:23, Atrial fibrillation is now Present Confirmed by Hal Fernández ([id number]) on 03/28/2021 9:26:41 AM Referred By: REFERRED SELF Confirmed By:Hal Fernández
--- NOTE | 2021-03-28 12:22 | Hospitalist Progress Note ---
Date of Service March 28, 2021 Assessment & Plan (1) VRE (vancomycin-resistant Enterococci) infection: (2) Gram-positive bacteremia: (3) AICD discharge: (4) Hematuria, gross: (5) Severe left ventricular systolic dysfunction: Plan: 75 yo M w/ PMH of Afib s/p ablation, HTN, V Tac, GBS complicated with critical illness polyneuropathy l/t acute hypoxemic resp failure s/p trach sent 03/24 from [facility] for hematuria, and had defibrillator fired 3 times while in the ED. He was admitted and is being managed for the following: #. Hematuria #. Possible UTI #. Gram-positive bacteremia Patient was attempted Izaguirre while at [facility] as he was being straight cathed 4-5 times a day Hematuria secondary to traumatic catheterization, currently under control, on Izaguirre catheter. Urology on board - no further interventions needed. Hemoglobin at presentation 12.5, it has been stable around 9. We will continue to monitor daily hemoglobin. Urine analysis suggestive of UTI, 03/24 urine culture positive for VRE E faecalis sensitive to daptomycin, WBC elevated at presentationdowntrending, 03/25 blood culture [1/4] positive for probable Enterococcus, MRSA screen positive. UTI 03/25: Enterococcus faecalis VRE 03/27 blood culture: Negative thus far. Was on Zosyn and Vanc for 1 to 2 days, changed to daptomycin 03/26 based on urine culture and sensitivity. 03/27 conversation with infectious disease over the [place] textrelayed patient's current status including 1 of 4 blood culture positive for probable Enterococcus and urine culture positive for VRE E faecalis sensitive to daptomycin. TTE was done which showed worsening ejection fraction, no concern for IE. But definitely we need MARIA INES, given patient's poor status [poor ejection fraction, defibrillator in place, tracheostomy status, hypoxic respiratory failure, quadriparesis] this will mean a greater insult on his cardiac condition as per discussion with cardiology. Cultures from 03/27 - thus far. Will await for final results. We will touch base with infectious disease for final input once repeat cultures are confirmed negative. #. ICD shock Interrogation reveals dysrythmia (Afib w/ very RVR Vs V Tach) and was shocked 3 times around 10 PM 03/24 LVEF this hospital stay 25% as compared to 40 to 45% in January. Continue to monitor electrolytes and replace as needed. Cardiology on board: Transitioned to amiodarone 200 mg twice daily. Continue Lasix 40 mg twice daily. Monitor ins and outs along with daily weights. Continue with metoprolol, Eliquis reinitiated 03/26/21 #. Pressure ulcers and abdominal pain: Recent Izaguirre obstruction. CTAP unremarkable for acute process. Antibiotics as above. #. History of Guillain-[place] syndrome: Currently he is moving his extremities. Transfer back to rehab when stable. On trach collar. #. History of hypertension: We will monitor. On lisinopril and metoprolol tartrate, withholding parameters. #. Possible congestive heart failure: I's and O-. His hands and pedal swelling improving. Monitor for any volume overload. Admitting echo: Severely reduced LV systolic function with EF of 25% #. A fib s/p ablation one year ago as per . on metoprolol. currently on amiodarone drip/p.o. amiodarone. Continue with Eliquis. #. Deep venous thrombosis prophylaxis: SCDs. Eliquis Disposition: Awaiting repeat blood culture 03/27, then might require reconnecting with infectious disease when negative. CM working on getting him back to [facility]. Admission and Anticipated Discharge Date Admission Date: March 25, 2021 Subjective This morning patient was awake and alert. Remains stable on 4 L of trach collar. Denies any chest pain, shortness of breath, abdominal pain, diarrhea or any other weakness. Denies any nausea or vomiting. Denies any headache or dizziness. The review of system is negative. Review of Systems Review of Systems: All systems reviewed & are unremarkable except as noted in HPI & below Physical Exam Physical Exam: General: A&Ox3 HENT: NCAT, MMM, EOMI Eyes: PERRLA Neck: on trach collar CVS: normal rate and rhythm Resp: b/l good breath sounds Abdomen: Soft, PEG in place Extremities: No c/c/e Neuro: face symmetric, strength grossly equal, no focal deficit Skin: warm and dry, no rashes/lesions/errythema MSK: normal ROM, no joint swelling/erythema Results & Data Results & Data ([facility]) Vital Signs (Past 12 Hours) Vital Signs Temp Pulse Resp BP Pulse Ox 03/28/21 07:20 36.8 C 03/28/21 00:56 86 23 110/66 98
[2021-03-28] MEDS: CYCLOBENZAPRINE HCL 10 MG TAB PO PRN (14:00)
[2021-03-28] MEDS: MIRTAZAPINE TAB 15 MG TAB GT SCH (20:16)
[2021-03-28] MEDS: MELATONIN 3 MG TAB PO SCH (20:16)
[2021-03-28] MEDS: LATANOPROST 0.005% OP SOLN 2.5 ML BTL OPB SCH (20:16)
[2021-03-29] MEDS: guaiFENesin SUGAR FREE 100 MG/5 ML UDC GT SCH ×5 (02:05→22:59)
[2021-03-29] MEDS: CHLORHEXIDINE GLUCONATE 0.12% 480 ML MT SCH ×7 (02:05→22:58)
[2021-03-29 05:30] LABS: BUN Creatinine Ratio 16.8 (10-20); Calcium 9.2 mg/dl (8.5-10.1); Creatinine Clr Calc Pharmacy 184.7 ml/min; Est GFR (African American) 131.1 ml/min; Est GFR (Non-African American) 113.1 ml/min; Magnesium 1.9 mg/dl (1.8-2.4); Potassium 4.2 mmol/L (3.5-5.1)
[2021-03-29 06:08] LABS: Basophils # (auto) 0.03 K/uL (0-0.2); Basophils % (auto) 0.4 %; Eosinophils # (auto) 0.19 K/uL (0-0.5); Eosinophils % (auto) 2.6 %; Hematocrit (blood only) 35.9 % (42-52); Hemoglobin 11.7 g/dL (14.0-18.0); Immature Granulocytes # (auto) 0.03 K/uL (0.00-0.02); Immature Granulocytes % (auto) 0.4 %; Lymphocytes # (auto) 2.66 K/uL (1.2-3.4); Lymphocytes % (auto) 36.2 %; Mean Corpuscular Hemoglobin 30.1 pg (25-34); Mean Corpuscular Hgb Conc 32.6 g/dL (32-36); Mean Corpuscular Volume 92.3 fL (80-100); Mean Platelet Volume 11.1 fL (7.4-10.4); Monocytes # (auto) 0.61 K/uL (0.11-0.59); Monocytes % (auto) 8.3 %; Neutrophils # (auto) 3.82 K/uL (1.4-6.5); Neutrophils % (auto) 52.1 %; Platelet Count 294 K/uL (130-400); RDW Coefficient of Variation 15.8 % (11.5-14.5); RDW Standard Deviation 53.7 fL (36.4-46.3); Red Blood Count 3.89 M/uL (4.7-6.1); White Blood Count 7.34 K/uL (4.8-10.8)
[2021-03-29] MEDS: METOPROLOL TARTRATE 50 MG TAB PEG SCH ×3 (06:27→21:23)
[2021-03-29] MEDS: LANSOPRAZOLE 30 MG SOLTAB PEG SCH ×2 (08:40→15:44)
[2021-03-29] MEDS: MAGNESIUM OXIDE 400 MG TAB PO SCH (08:40)
[2021-03-29] MEDS: CHOLECALCIFEROL 1,000 UNITS 25 MCG TAB PEG SCH (08:40)
[2021-03-29] MEDS: POTASSIUM CHLORIDE 20 MEQ/15 ML UDC PEG SCH (08:40)
[2021-03-29] MEDS: LIDOCAINE 5% 1 PATCH TD SCH (08:40)
[2021-03-29] MEDS: DOCUSATE SODIUM SYRUP 100 MG/10 ML UDC PEG SCH ×2 (08:41→21:19)
[2021-03-29] MEDS: NYSTATIN CR 15 GM TUBE EXT SCH ×2 (08:41→21:25)
[2021-03-29] MEDS: APIXABAN 5 MG TABLET PO SCH ×2 (08:41→21:19)
[2021-03-29] MEDS: AMIODARONE 200 MG TAB PO SCH ×2 (08:41→15:44)
[2021-03-29] MEDS: lisinopril 2.5 MG TAB PO SCH (08:41)
[2021-03-29] MEDS: DAPTOmycin 625 MG in SYRINGE 0 ML IV SCH (08:42)
[2021-03-29] MEDS: oxyCODONE HCL SOLN 5 MG/5 ML UDC GT PRN ×3 (10:56→22:58)
--- NOTE | 2021-03-29 12:09 | Cardiology Progress Note ---
Date of Service March 29, 2021 Assessment & Plan (1) AICD discharge: (2) Atrial fibrillation with rapid ventricular response: (3) Severe left ventricular systolic dysfunction: (4) VRE (vancomycin-resistant Enterococci) infection: Plan: 75-year-old male with previous history of nonischemic cardiomyopathy, paroxysmal atrial fibrillation presents with long course of illness that began in early January,, ventilator dependent for over 3 weeks in [place], with myopathy symptoms, now has tracheostomy, PEG tube, chronic Izaguirre catheter and presented to this institution acutely on 03/24 with Izaguirre catheter obstruction and gross hematuria. A Izaguirre catheter is being replaced, patient was noted to have developed recurrent atrial fibrillation with rapid ventricular response in excess of 200 bpm prompting AICD discharge x3 with subsequent conversion to sinus rhythm. LVEF 25% this admission, having been 45 -50% when hospitalized in early January, but has had noted severe left ventricular systolic dysfunction in the setting of atrial fibrillation in the past as per notes obtained from [facility] and that is why he has a history of dual-chamber AICD implantation. PAF: -Continue amiodarone load 200 mg twice daily via PEG tube. -Continue metoprolol 50 mg every 8 hours. -Continue lisinopril 2.5 mg daily. -Continue Eliquis 5 mg twice daily for stroke prophylaxis in the setting of paroxysmal atrial fibrillation, and VTE prophylaxis. Severe LV systolic dysfunction: -Resume furosemide 40 mg BID. -add low dose spironolactone for CM and potassium support -Continue metoprolol, and lisinopril Sepsis, suspected urinary source with 3 months of urinary catheter : -Vancomycin-resistant Enterococcus has grown from his urine culture, and 1/2 blood cultures positive for VRE. -Per available records, patient was transferred from [facility] to the [facility] in [place] on 02/02/21. The admission H and P at that time describes need to complete course of Cefepime for Acinebactor pneumonia. No mention of VRE at that time. -Will bacteremia and his history of dual chamber AICD, concern for endocarditis has been raises. -I went back and reviewed the images of the recent transthoracic echo performed this hospital stay. The mitral and aortic valves were well seen with normal structure and function. The tricuspid valve and the leads were less well visualized however without findings to suggest infectious source. -Although the information obtained by performing a MARIA INES would at first sound beneficial, I have concerns with regards to the risks of sedation for the procedure. If there was suggestion of endocarditis, would need to consider benefits and risks of AICD device extraction. -I discussed all of this with the patient and through an approach of shared decision making we have decided to hold of on MARIA INES at present. -Repeat cultures were obtained on 03/27 and are negative at present. -Continue daptomycin, perhaps for a standard duration of treatment. Admission and Anticipated Discharge Date Admission Date: March 25, 2021 Subjective Patient seen in cardiology follow up. He looks well. He is sitting in bed. SR with occasional PVCs noted , no recurrence of atrial fibrillation. He is afebrile. Review of Systems Review of Systems: All systems reviewed & are unremarkable except as noted in HPI & below Neurologic: ongoing motor weakness as previously described Physical Exam Physical Exam: Temp Pulse Resp BP Pulse Ox 36.7 C 76 19 135/84 99 03/29/21 04:56 03/29/21 08:56 03/29/21 08:56 03/29/21 08:56 03/29/21 08:56 Constitutional: no acute distress (chronically ill in appearance without acute distress ) Respiratory: Auscultation: + diminished lung sounds (decreased BS at the bases ) Cardiovascular: Rate/Rhythm: regular rate Heart Sounds: no murmur Extremities: no edema Chest (Breasts): Additional Comments: left infraclavicular device pocket is clean , dry and intact. Gastrointestinal (Abdomen): normal bowel sounds, soft, nontender, no hepatosplenomegaly Neurologic: ongoing LE greater than upper extremity weakness . Results & Data ([facility]) Vital Signs (Past 12 Hours) Vital Signs Temp Pulse Resp BP Pulse Ox 03/29/21 08:56 76 19 135/84 99 03/29/21 04:56 36.7 C 73 22 111/72 99 03/29/21 00:26 36.7 C 77 17 128/76 97 Laboratory Results CBC 03/29/21 Range/Units 04:48 WBC 7.34 (4.8-10.8) K/uL RBC 3.89 L (4.7-6.1) M/uL Hgb 11.7 L (14.0-18.0) g/dL Hct 35.9 L (42-52) % Plt Count 294 (130-400) K/uL Neut # (Auto) 3.82 (1.4-6.5) K/uL Lymph # (Auto) 2.66 (1.2-3.4) K/uL [place] # (Auto) 0.61 H (0.11-0.59) K/uL Eos # (Auto) 0.19 (0-0.5) K/uL Baso # (Auto) 0.03 (0-0.2) K/uL Comprehensive Metabolic Panel 03/29/21 Range/Units 04:44 Sodium 141 (136-145) mmol/L Potassium 4.2 (3.5-5.1) mmol/L Chloride 106 (98-107) mmol/L Carbon Dioxide 25 (21-32) mmol/L BUN 7 (7-18) mg/dl Creatinine 0.42 L (0.6-1.4) mg/dl Glucose 100 H (70-99) mg/dl Calcium 9.2 (8.5-10.1) mg/dl Intake and Output 03/28/21 03/29/21 03/29/21 22:59 06:59 14:59 Intake Total 400 / 921.750 Output Total 2099 Balance 100 / -1178.250 -600 / -1178.250 Intake: Oral 400 / 880 Output: Urine Amount (Catheter) 2099 Izaguirre/Indwelling 2099
--- NOTE | 2021-03-29 13:04 | Hospitalist Progress Note ---
Date of Service March 29, 2021 Assessment & Plan (1) VRE (vancomycin-resistant Enterococci) infection: (2) Gram-positive bacteremia: (3) AICD discharge: (4) Hematuria, gross: (5) Severe left ventricular systolic dysfunction: Plan: 75 yo M w/ PMH of Afib s/p ablation, HTN, V Tac, GBS complicated with critical illness polyneuropathy l/t acute hypoxemic resp failure s/p trach sent 03/24 from [facility] for hematuria, and had defibrillator fired 3 times while in the ED. He was admitted and is being managed for the following: #. Hematuria #. Possible UTI #. Gram-positive bacteremia Patient [facility] straight cathed 4-5 times a day Hematuria secondary to traumatic catheterization, currently under control, on Izaguirre catheter. Urology on board - no further interventions needed. Hemoglobin at presentation 12.5, it has been stable around 9. We will continue to monitor daily hemoglobin. Urine analysis suggestive of UTI, 03/24 urine culture positive for VRE E faecalis sensitive to daptomycin, WBC elevated at presentationdowntrending, 03/25 blood culture [1/4] positive for probable Enterococcus, MRSA screen positive. UTI 03/25: Enterococcus faecalis VRE 03/27 blood culture: Negative thus far. Was on Zosyn and Vanc for 1 to 2 days, changed to daptomycin 03/26 based on urine culture and sensitivity. 03/27 conversation with infectious disease over the [place] textrelayed patient's current status including 1 of 4 blood culture positive for probable Enterococcus and urine culture positive for VRE E faecalis sensitive to daptomycin. TTE was done which showed worsening ejection fraction, no concern for IE. Cultures from 03/27 - thus far. Awaiting infectious disease final recommendations for discharge. Given his complex clinical history and ICD in place, cardiology thought of doing MARIA INES. However, it comes with risks given his respiratory status as well. Discussion held between the wealth management consultant and the patient and patient refused at this time. Will continue with daptomycin for now. #. ICD shock Interrogation reveals dysrythmia (Afib w/ very RVR Vs V Tach) and was shocked 3 times around 10 PM 03/24 LVEF this hospital stay 25% as compared to 40 to 45% in January. Continue to monitor electrolytes and replace as needed. Cardiology on board: Transitioned to amiodarone 200 mg twice daily. Continue Lasix 40 mg twice daily. Monitor ins and outs along with daily weights. Continue with metoprolol, Eliquis reinitiated 03/26/21, added spironolactone 12.5 mg daily today. Left hand swelling Likely from IV. Requested RN to remove the IV. Supportive management. Continue to monitor. #. Pressure ulcers and abdominal pain: Recent Izaguirre obstruction. CTAP unremarkable for acute process. Antibiotics as above. #. History of Guillain-Millrift syndrome: Currently he is moving his extremities. Transfer back to rehab when stable. On trach collar. #. History of hypertension: Continue to monitor. On lisinopril and metoprolol tartrate, withholding parameters. #. Possible congestive heart failure: I's and O-. His hands and pedal swelling improving. Monitor for any volume overload. Admitting echo: Severely reduced LV systolic function with EF of 25% #. A fib s/p ablation one year ago as per . on metoprolol. currently on amiodarone drip/p.o. amiodarone. Continue with Eliquis. #. Deep venous thrombosis prophylaxis: SCDs. Eliquis Disposition: Awaiting repeat blood culture 03/27, then might require reconnecting with infectious disease when negative. [facility]mission and Anticipated Discharge Date Admission Date: March 25, 2021 Subjective Patient is awake and alert. Denies any active or new complaints today. Remains stable on 4 L of trach collar. Denies any chest pain or shortness of breath. Rest of the review of systems negative. His other complaint was swelling of the left hand at the IV site. Patient stated that it is causing him discomfort and pain. Review of Systems Review of Systems: All systems reviewed & are unremarkable except as noted in HPI & below Physical Exam Physical Exam: General: A&Ox3 HENT: NCAT, MMM, EOMI Eyes: PERRLA Neck: on trach collar CVS: normal rate and rhythm Resp: b/l good breath sounds Abdomen: Soft, PEG in place Extremities: No c/c/e Neuro: face symmetric, strength grossly equal, no focal deficit Skin: warm and dry, no rashes/lesions/errythema MSK: normal ROM, no joint swelling/erythema Results & Data Results & Data ([facility]) Vital Signs (Past 12 Hours) Vital Signs Temp Pulse Resp BP Pulse Ox 03/29/21 08:56 76 19 135/84 99 03/29/21 04:56 36.7 C 73 22 111/72 99
[2021-03-29] MEDS: FUROSEMIDE 40 MG TAB PO SCH ×2 (14:25→15:44)
[2021-03-29] MEDS: SPIRONOLACTONE 12.5 MG TAB PO SCH (14:25)
[2021-03-29] MEDS: CYCLOBENZAPRINE HCL 10 MG TAB PO PRN ×2 (15:40→22:58)
[2021-03-29] MEDS: AMPICILLIN 2,000 MG in SODIUM CHLOR 0.9% AD-VAN 100 ML IV SCH (21:17)
[2021-03-29] MEDS: LATANOPROST 0.005% OP SOLN 2.5 ML BTL OPB SCH (21:19)
[2021-03-29] MEDS: MIRTAZAPINE TAB 15 MG TAB GT SCH (21:23)
[2021-03-29] MEDS: MELATONIN 3 MG TAB PO SCH (21:23)
[2021-03-30] MEDS: AMPICILLIN 2,000 MG in SODIUM CHLOR 0.9% AD-VAN 100 ML IV SCH ×4 (02:18→19:44)
[2021-03-30] MEDS: CHLORHEXIDINE GLUCONATE 0.12% 480 ML MT SCH ×5 (04:00→19:44)
[2021-03-30] MEDS: METOPROLOL TARTRATE 50 MG TAB PEG SCH ×3 (06:11→20:58)
[2021-03-30] MEDS: guaiFENesin SUGAR FREE 100 MG/5 ML UDC GT SCH ×3 (06:11→17:34)
[2021-03-30] MEDS: FUROSEMIDE 40 MG TAB PO SCH ×3 (06:11→13:31)
[2021-03-30] MEDS: SPIRONOLACTONE 12.5 MG TAB PO SCH (08:56)
[2021-03-30] MEDS: lisinopril 2.5 MG TAB PO SCH (08:56)
[2021-03-30] MEDS: CHOLECALCIFEROL 1,000 UNITS 25 MCG TAB PEG SCH (08:57)
[2021-03-30] MEDS: AMIODARONE 200 MG TAB PO SCH ×2 (08:57→17:33)
[2021-03-30] MEDS: LANSOPRAZOLE 30 MG SOLTAB PEG SCH ×2 (08:57→17:33)
[2021-03-30] MEDS: LIDOCAINE 5% 1 PATCH TD SCH (08:58)
[2021-03-30] MEDS: DOCUSATE SODIUM SYRUP 100 MG/10 ML UDC PEG SCH ×2 (08:58→20:57)
[2021-03-30] MEDS: MAGNESIUM OXIDE 400 MG TAB PO SCH (08:58)
[2021-03-30] MEDS: APIXABAN 5 MG TABLET PO SCH ×2 (08:58→20:58)
[2021-03-30] MEDS: POTASSIUM CHLORIDE 20 MEQ/15 ML UDC PEG SCH (08:58)
[2021-03-30] MEDS: NYSTATIN CR 15 GM TUBE EXT SCH ×2 (08:59→20:59)
[2021-03-30] MEDS ORDERED: SULFAMETHOXAZOLE/TRIMETHOPRIM 200MG/40MG/5ML SUSP PO SCH (09:00)
--- NOTE | 2021-03-30 12:22 | Cardiology Progress Note ---
Date of Service March 30, 2021 Assessment & Plan (1) AICD discharge: (2) Atrial fibrillation with rapid ventricular response: (3) Severe left ventricular systolic dysfunction: (4) VRE (vancomycin-resistant Enterococci) infection: Plan: 75-year-old male with previous history of nonischemic cardiomyopathy, paroxysmal atrial fibrillation presents with long course of illness that began in early January,, ventilator dependent for over 3 weeks in [place], with myopathy symptoms, now has tracheostomy, PEG tube, chronic Izaguirre catheter and presented to this institution acutely on 03/24 with Izaguirre catheter obstruction and gross hematuria. A Izaguirre catheter is being replaced, patient was noted to have developed recurrent atrial fibrillation with rapid ventricular response in excess of 200 bpm prompting AICD discharge x3 with subsequent conversion to sinus rhythm. LVEF 25% this admission, having been 45 -50% when hospitalized in early January, but has had noted severe left ventricular systolic dysfunction in the setting of atrial fibrillation in the past as per notes obtained from [facility] and that is why he has a history of dual-chamber AICD implantation. PAF: -Continue amiodarone 200 mg twice daily via PEG tube. -Continue metoprolol 50 mg every 8 hours. -Continue lisinopril 2.5 mg daily. -Continue Eliquis 5 mg twice daily for stroke prophylaxis in the setting of paroxysmal atrial fibrillation, and VTE prophylaxis. Severe LV systolic dysfunction: -Continue furosemide 40 mg BID. -add low dose spironolactone for CM and potassium support -Continue metoprolol, and lisinopril -Continue potassium chloride elixir 20 mEq daily via PEG tube. -Continue magnesium oxide via PEG tube. -Update basic metabolic panel 03/31. Sepsis, suspected urinary source with 3 months of urinary catheter : -Vancomycin-resistant Enterococcus has grown from his urine culture, and 1/2 blood cultures positive for VRE. -Per available records, patient was transferred from [facility] to the [facility] in [place] on 02/02/21. The admission H and P at that time describes need to complete course of Cefepime for Acinebactor pneumonia. No mention of VRE at that time. -ID input noted and appreciated. He has been transitioned to ampicillin as per sensitivities. Per ID note 03/28 was day #4 of targeted therapy, and he is to complete 14 days of treatment. Plan is to transition to oral amoxicillin at discharge . -Per ID recommendations, consider stopping prophylactic bactrim. Admission and Anticipated Discharge Date Admission Date: March 25, 2021 Subjective Mr. Bull is feeling well today, he is in bed, oxygen saturations are stable, and he has no acute complaint. Over the last few days, I have seen a progressive improvement in his upper extremity strength and mobility which I think is favorable, he still however has severe weakness in his legs. Telemetry reveals sinus rhythm in the range of 7080 bpm with occasional PVCs and ventricular couplets, no recurrent atrial fibrillation or sustained ventricular arrhythmias. Izaguirre catheter is in place draining clear yellow urine. PEG tube in place without surrounding erythema at site. Physical Exam Physical Exam: Temp Pulse Resp BP Pulse Ox 36.7 C 76 19 135/84 99 03/29/21 04:56 03/29/21 08:56 03/29/21 08:56 03/29/21 08:56 03/29/21 08:56 Constitutional: + ill appearing (Chronically ill in appearance, no acute distress); no acute distress (chronically ill in appearance without acute distress ) Respiratory: normal respiratory effort, lungs clear to auscultation Auscultation: + diminished lung sounds (decreased BS at the bases ); no crackles, no rales and no wheezes Cardiovascular: RRR, no murmur, no edema Rate/Rhythm: regular rate Heart Sounds: no murmur Extremities: + edema (Mild diffuse edema noted, specifically in his hands, minimal lower extremit) Chest (Breasts): Additional Comments: Left infraclavicular device pocket clean dry and intact, no erythema, soft. Gastrointestinal (Abdomen): normal bowel sounds, soft, nontender, no hepatosplenomegaly Neurologic: Ongoing weakness the lower extremities, bilateral upper extremities trending toward improvement. Mental status is appropriate. Results & Data ([facility]) Vital Signs (Past 12 Hours) Vital Signs Temp Pulse Pulse Resp BP Pulse Ox Pulse Ox 03/30/21 09:00 36.9 C 03/30/21 08:56 85 15 101/72 96 03/30/21 04:56 77 18 136/84 97 03/30/21 02:40 97 H 15 98 03/30/21 00:57 79 14 108/73 98 Laboratory Results Intake and Output 03/29/21 03/30/21 03/30/21 22:59 06:59 14:59 Intake Total 160 / 380 220 / 380 100 / 100 Output Total 1200 / 3000 1800 / 3000 Balance -1040 / -2620 -1580 / -2620 100 / 100 Intake: IV 100 / 200 100 / 200 100 / 100 Ampicillin 2,000 mg In Sodium 100 / 200 100 / 200 100 / 100 Chlor 0.9% Ad-Van 100 ml @ 200 mls/hr IV Q6H [facility] Rx#:[id number] Oral 60 / 180 120 / 180 Output: Stool 0 / 0 Urine Amount (Catheter) 1200 / 3000 1800 / 3000 Izaguirre/Indwelling 1200 / 3000 1800 / 3000 Other: Weight 103.1 kg 103.1 kg Weight Measurement Method Built in [facility] Patient Weight 03/31/21 06:59 Weight 103.1 kg
--- NOTE | 2021-03-30 13:44 | Hospitalist Progress Note ---
Date of Service March 30, 2021 Assessment & Plan (1) VRE (vancomycin-resistant Enterococci) infection: (2) Gram-positive bacteremia: Plan: per ID recs, daptomycin was changed to ampicillin with plan for PO amoxicillin at discharge, treat until 04/08 Also, as he is no longer on steroids, Bactrim prophylaxis for PCP pneumonia was stopped. TTE revealed no evidence of infective endocarditis and repeat BCx after treatment initiation with abx revealed clearance of the bacteria. (3) Catheter-associated urinary tract infection: Plan: VRE CAUTI-cont antibiotic regimen as stated above. (4) AICD discharge: Plan: Interrogation reveals dysrythmia (Afib w/ very RVR Vs V Tach) and was shocked 3 times around 10 PM 03/24 LVEF this hospital stay 25% as compared to 40 to 45% in January. Continue to monitor electrolytes and replace as needed. Cardiology on board: Transitioned to amiodarone 200 mg twice daily. Continue Lasix 40 mg twice daily. Monitor ins and outs along with daily weights. Continue with metoprolol, Eliquis reinitiated 03/26/21, added spironolactone 12.5 mg daily 03/29 (5) Hematuria, gross: Plan: Patient was attempted Steele while at [facility] as he was being straight cathed 4-5 times a day Hematuria secondary to traumatic catheterization, resolved. Urology on board - no further interventions needed. Hemoglobin stable, cont steele catheter (6) Severe left ventricular systolic dysfunction: Plan: h/o NICM, compensated/euvolemic on exam. Cont medical management including lisinopril, and metoprolol. Continue furosemide 40 mg p.o. twice daily and spironolactone added for cardiomyopathy and potassium support. Continue potassium chloride elixir supplementation via PEG tube daily. Continue magnesium oxide via PEG tube daily. BMP in a.m. (7) PAF (paroxysmal atrial fibrillation): Plan: Cardiology following, cont amio 200mg PO BID, metoprolol 50mg PO q8h, Eliquis 5mg PO BID. Remains in sinus rhythm on telemetry review. (8) Guillain Lowery syndrome: Plan: Per skin assessment on nursing note, skin is reddened without evidence of breakdown. Cont to offload pressure points and ensure turn q2h. Cont to work wtih PT and OT as often as able. Cont supportive care via trach, PEG and steele catheter. (9) DVT prophylaxis: Plan: Eliquis Full Code Dispo-to [facility] when medically stable for discharge. Araceli Rothman DO [facility] Hospitalist Admission and Anticipated Discharge Date Admission Date: March 25, 2021 Subjective 75-year-old man admitted with gross hematuria secondary to Steele trauma. This has resolved since admission. He came from rehab with a history of Guillain- Lowery syndrome with improvement in weakness. Trach and PEG in place. Has a history of intubation with 2 months on the ventilator. just finished working with therapist today, feels his strength improving denies further ICD shocks and states that his initial shock he feels was related to his significant agitation from a sore bottom that wasn't properly addressed in the ER afib with RVR noted in ER prior to shock-->he continues on amio, metoprolol, lisinopril and Eliquis (h/o NICM) Tolerating p.o. and per nutrition we will continue with p.o. supplement but will adjust feedings to include initiation of nocturnal feedings via PEG to help provide supplemental nutrition while allowing time off during the day. Patient denies any pain or shortness of breath He does report a nagging nonproductive cough since admission that is not persistent Review of Systems Review of Systems: All systems were reviewed and negative except as indicated in HPI above. Physical Exam Physical Exam: CONSTITUTIONAL: WNWD, vitals as above, generally well- appearing EYES: normal conjunctivae, no scleral icterus ENT: external ear and nose normal, MMM NECK: trachea midline, tracheostomy with trach collar at 6LPM in place. RESPIRATORY: clear to auscultation bilaterally except for crackles at the left base, no rales or wheezes, normal respiratory effort CARDIOVASCULAR: regular rate and rhythm, S1 and 2 heard without murmurs, gallops or rubs, no JVD, no peripheral edema CHEST: inspection of chest was normal GASTROINTESTINAL: soft, nontender, nondistended. PEG tube in place with normal surrounding skin and no drainage noted. MUSCULOSKELETAL: moving all limbs against gravity with some persistent deficits such as with dorsiflexion of both feet, plantarflexion is strong bilaterally, can move his arms around with fine motor control limited. Generalized weakness. head is normocephalic and atraumatic SKIN: warm and dry, hands are notably swollen L>R NEUROLOGIC: CN 2-12 grossly intact, normal cognition, normal speech PSYCHIATRIC: alert cooperative and oriented to person, place and time. Results & Data Results & Data ([facility]) Vital Signs (Past 12 Hours) Vital Signs Temp Pulse Pulse Resp BP BP Pulse Ox 03/30/21 12:28 36.9 C 97 H 20 106/52 L 91 03/30/21 09:00 36.9 C 03/30/21 08:56 85 15 101/72 96 03/30/21 04:56 77 18 136/84 97 03/30/21 02:40 97 H 15 Pulse Ox 03/30/21 12:28 03/30/21 09:00 03/30/21 08:56 03/30/21 04:56 03/30/21 02:40 98 Medications Administered Current Inpatient Medications Acetaminophen (Acetaminophen Susp 325 Mg/10.15 Ml Udc) 650 mg PEG Q4H PRN PRN Reason: Pain or Fever Stop: 04/24/21 02:45 Last Admin: 03/29/21 22:58 Dose: 650 mg Documented by: Amiodarone HCl (Amiodarone 200 Mg Tab) 200 mg PO BIDM [facility] Stop: 04/25/21 16:59 Last Admin: 03/30/21 08:57 Dose: 200 mg Documented by: Apixaban (Apixaban 5 Mg Tablet) 5 mg PO BID BI Stop: 04/26/21 08:59 Last Admin: 03/30/21 08:58 Dose: 5 mg Documented by: Chlorhexidine Gluconate (Chlorhexidine Gluconate 0.12% 480 Ml) 15 ml MT Q4 BI Stop: 04/24/21 03:59 Last Admin: 03/30/21 13:31 Dose: 15 ml Documented by: Cyclobenzaprine HCl (Cyclobenzaprine Hcl 10 Mg Tab) 10 mg PO TID PRN PRN Reason: Spasms Stop: 04/24/21 03:18 Last Admin: 03/29/21 22:58 Dose: 10 mg Documented by: Docusate Sodium (Docusate Sodium Syrup 100 Mg/10 Ml Udc) 100 mg PEG BID BI Stop: 04/24/21 08:59 Last Admin: 03/30/21 08:58 Dose: 100 mg Documented by: Furosemide (Furosemide 40 Mg Tab) 40 mg PO [id number] [facility] Stop: 04/28/21 13:59 Last Admin: 03/30/21 13:31 Dose: 40 mg Documented by: Guaifenesin (Guaifenesin Sugar Free 100 Mg/5 Ml Udc) 100 mg GT Q6 [facility] Stop: 04/24/21 05:59 Last Admin: 03/30/21 13:31 Dose: 100 mg Documented by: Ampicillin Sodium 2,000 mg/ (Sodium Chloride) 100 mls @ 200 mls/hr IV Q6H [facility]; Protocol Stop: 04/12/21 19:59 Last Admin: 03/30/21 13:31 Dose: 200 mls/hr Documented by: Lansoprazole (Lansoprazole 30 Mg Soltab) 30 mg PEG BIDM [facility] Stop: 04/24/21 07:59 Last Admin: 03/30/21 08:57 Dose: 30 mg Documented by: Latanoprost (Latanoprost 0.005% Op Soln 2.5 Ml Btl) 1 drops OPB [facility] Stop: 04/24/21 20:59 Last Admin: 03/29/21 21:19 Dose: 1 drops Documented by: Lidocaine (Lidocaine 5% 1 Patch) [facility] [place] Stop: 04/24/21 08:59 Last Admin: 03/30/21 08:58 Dose: 1 patch Documented by: Lisinopril (Lisinopril 2.5 Mg Tab) 2.5 mg PO DAILY [facility] Stop: 04/24/21 08:59 Last Admin: 03/30/21 08:56 Dose: 2.5 mg Documented by: Magnesium Oxide (Magnesium Oxide 400 Mg Tab) 400 mg PO QAM [facility] Stop: 04/26/21 08:59 Last Admin: 03/30/21 08:58 Dose: 400 mg Documented by: Melatonin (Melatonin 3 Mg Tab) 9 mg PO [facility] Stop: 04/24/21 20:59 Last Admin: 03/29/21 21:23 Dose: 9 mg Documented by: Metoprolol Tartrate (Metoprolol Tartrate 50 Mg Tab) 50 mg PEG Q8 [facility] Stop: 04/24/21 05:59 Last Admin: 03/30/21 13:31 Dose: 50 mg Documented by: Mirtazapine (Mirtazapine Tab 15 Mg Tab) 15 mg GT [facility] Stop: 04/24/21 20:59 Last Admin: 03/29/21 21:23 Dose: 15 mg Documented by: Miscellaneous (Remove Lidoderm Patch) 1 ea N/A DAILY@2100 [facility] Stop: 04/24/21 03:14 Last Admin: 03/29/21 21:25 Dose: 1 ea Documented by: Nitroglycerin (Nitroglycerin Sl 0.4 Mg/Tab Tab) 0.4 mg SL UD PRN PRN Reason: Chest Pain Stop: 04/24/21 02:45 Nystatin (Nystatin Cr 15 Gm Tube) 1 appln EXT BID [facility] Stop: 04/24/21 08:59 Last Admin: 03/30/21 08:59 Dose: 1 appln Documented by: Oxycodone HCl (Oxycodone Hcl Soln 5 Mg/5 Ml Udc) 5 mg GT Q4H PRN PRN Reason: Pain Stop: 04/08/21 02:45 Last Admin: 03/29/21 22:58 Dose: 5 mg Documented by: Potassium Chloride (Potassium Chloride 20 Meq/15 Ml Udc) 20 meq PEG QAM BI Stop: 04/27/21 08:59 Last Admin: 03/30/21 08:58 Dose: 20 meq Documented by: Spironolactone (Spironolactone 12.5 Mg Tab) 12.5 mg PO DAILY [facility] Stop: 04/28/21 12:59 Last Admin: 03/30/21 08:56 Dose: 12.5 mg Documented by: Tramadol HCl (Tramadol Hcl 50 Mg Tablet) 50 mg NG Q4H PRN PRN Reason: Pain Stop: 04/24/21 02:45 Trimethoprim/Sulfamethoxazole (Sulfamethoxazole/Trimethoprim 200mg/40mg/5ml Susp) 160 mg PO MoWeFr@0900 [facility] Stop: 04/29/21 08:59 Last Admin: 03/30/21 08:59 Dose: 160 mg Documented by: Vitamin D (Cholecalciferol 1,000 Units 25 Mcg Tab) 500 units PEG DAILY BI Stop: 04/24/21 08:59 Last Admin: 03/30/21 08:57 Dose: 500 units Documented by:
[2021-03-30] MEDS: CYCLOBENZAPRINE HCL 10 MG TAB PO PRN (15:56)
[2021-03-30] MEDS ORDERED: PEPTAMEN 1.5 CAL 1,000 ML BAG PEG SCH (19:00)
[2021-03-30] MEDS: oxyCODONE HCL SOLN 5 MG/5 ML UDC GT PRN (19:44)
[2021-03-30] MEDS: LATANOPROST 0.005% OP SOLN 2.5 ML BTL OPB SCH (20:56)
[2021-03-30] MEDS: MELATONIN 3 MG TAB PO SCH (20:56)
[2021-03-30] MEDS: MIRTAZAPINE TAB 15 MG TAB GT SCH (21:01)
[2021-03-31] MEDS: CHLORHEXIDINE GLUCONATE 0.12% 480 ML MT SCH ×4 (00:17→11:54)
[2021-03-31] MEDS: guaiFENesin SUGAR FREE 100 MG/5 ML UDC GT SCH ×3 (00:17→11:54)
[2021-03-31] MEDS: AMPICILLIN 2,000 MG in SODIUM CHLOR 0.9% AD-VAN 100 ML IV SCH ×2 (02:45→07:43)
[2021-03-31 06:06] LABS: BUN Creatinine Ratio 17.7 (10-20); Calcium 9.1 mg/dl (8.5-10.1); Creatinine Clr Calc Pharmacy 123.9 ml/min; Est GFR (African American) 110.9 ml/min; Est GFR (Non-African American) 95.7 ml/min; Potassium 3.5 mmol/L (3.5-5.1)
[2021-03-31] MEDS: METOPROLOL TARTRATE 50 MG TAB PEG SCH (07:11)
[2021-03-31] MEDS: SPIRONOLACTONE 12.5 MG TAB PO SCH (07:43)
[2021-03-31] MEDS: CHOLECALCIFEROL 1,000 UNITS 25 MCG TAB PEG SCH (07:43)
[2021-03-31] MEDS: lisinopril 2.5 MG TAB PO SCH (07:44)
[2021-03-31] MEDS: AMIODARONE 200 MG TAB PO SCH (07:44)
[2021-03-31] MEDS: LANSOPRAZOLE 30 MG SOLTAB PEG SCH (07:44)
[2021-03-31] MEDS: FUROSEMIDE 40 MG TAB PO SCH (07:44)
[2021-03-31] MEDS: MAGNESIUM OXIDE 400 MG TAB PO SCH (07:45)
[2021-03-31] MEDS: DOCUSATE SODIUM SYRUP 100 MG/10 ML UDC PEG SCH (07:45)
[2021-03-31] MEDS: NYSTATIN CR 15 GM TUBE EXT SCH (07:45)
[2021-03-31] MEDS: APIXABAN 5 MG TABLET PO SCH (07:45)
[2021-03-31] MEDS: POTASSIUM CHLORIDE 20 MEQ/15 ML UDC PEG SCH (07:45)
[2021-03-31] MEDS: LIDOCAINE 5% 1 PATCH TD SCH (07:45)
--- NOTE | 2021-03-31 09:51 | Cardiology Progress Note ---
Date of Service March 31, 2021 Assessment & Plan (1) PAF (paroxysmal atrial fibrillation): (2) AICD discharge: (3) Severe left ventricular systolic dysfunction: (4) Acute on chronic heart failure with reduced ejection fraction and diastolic dysfunction: (5) VRE (vancomycin-resistant Enterococci) infection: Plan: Continue current cardiovascular medications as previously ordered. Low-dose spironolactone added yesterday. Renal function and serum potassium stable. Continue amiodarone loading, 200 mg twice daily for an additional 10 days then reduce dose to 200 mg once daily. Anticoagulation with Eliquis as ordered. Antibiotics as per infectious disease. Repeat basic metabolic panel early next week. Admission and Anticipated Discharge Date Admission Date: March 25, 2021 Subjective Patient seen and examined the bedside. Feeling well from a cardiovascular perspective today. Able to move his upper and lower extremities, however, notes tremors when attempting to feed himself. Denies chest pain or shortness of breath. Telemetry reveals sinus rhythm with PVCs. Review of Systems Review of Systems: All systems reviewed & are unremarkable except as noted in Subjective Physical Exam Constitutional: well nourished and + ill appearing; no acute distress Respiratory: normal respiratory effort; no respiratory distress Ausculta tion: no crackles, no rales, no rhonchi and no wheezes Cardiovascular: Rate/Rhythm: regular rate and regular rhythm Heart Sounds: normal S1 and normal S2; no murmur Extremities: no edema Gastrointestinal (Abdomen): Inspection/Auscultation: abdomen normal to inspection and normal bowel sounds; abdomen not distended Percussion/Palpation: abdomen soft; abdomen nontender, no guarding and abdomen not rigid Neurologic: Upper and lower extremity weakness. Psychiatric: A+Ox3, euthymic affect Results & Data ([facility]) Vital Signs (Past 12 Hours) Vital Signs Temp Pulse Pulse Resp BP BP Pulse Ox 03/31/21 04:56 37.2 C 80 14 91/58 L 95 03/31/21 00:56 37.1 C 79 17 109/82 97 03/31/21 00:00 86 03/30/21 23:38 72 16 03/30/21 23:14 36.7 C 78 17 110/69 97 Pulse Ox 03/31/21 04:56 03/31/21 00:56 03/31/21 00:00 03/30/21 23:38 98 03/30/21 23:14
--- NOTE | 2021-03-31 11:29 | Discharge Summary ---
Date of Service March 31, 2021 Admission HPI Per Admitting Provider HISTORY OF PRESENT ILLNESS: A 75-year-old male with past medical history significant for atrial fibrillation, status post ablation, hypertension, hx of ventricular tachycardia, history of Guillain-Endicott syndrome, critical illness polyneuropathy sepsis with acute hypoxemic respiratory failure, currently at [facility], who comes here because of hematuria. The patient is from the [place] area, generally goes to [place]. As per patient and his On 01/11/2021, he was admitted to [place] with sepsis. Then one week later, the patient could not move his extremities and he was short of breath and he was told that he has Guillain-Endicott syndrome. As per the patient and his , he was intubated, he was on the ventilator almost for 2 months. He was there in [place] for 3 weeks and was transferred to [place], seemed to be long-term facility, and recently was transferred to [facility] as he was getting better for rehabilitation. He has trach and he is on oxygen from his [facility]. The patient is alert and oriented and able to give his history. Speech is good. 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 He has a PEG tube, but he is saying he is on pureed diet per mouth and also having PEG tube feedings. Yesterday at [facility] his Steele catheter was placed and he started to have a lot of pain and today developed hematuria, that is the reason he was brought in here. In the ER, thought the Steele was malfunctioning and it was removed and after placing the new Steele in the ER his pain resolved, and the hematuria also started getting better. ER planned to transfer him back to [facility], when his ICD shocked 3 times. He was started on amiodarone drip and we were called for admission. The patient is currently resting comfortably, alert and oriented. He says he could feel the shocks, he felt that shocks in his head. He says he did not lose his consciousness. Denies any chest pain, denies any palpitations. No nausea, no headache, no blurred visions, no earache, no runny nose, no sore throat, no cough, no fever. Earlier he was nauseous, when he was in a lot of pain he was nauseous, but the pain is resolved now and now he is feeling okay. Bowels are moving okay. The patient and do not recollect why ICD was placed. Admission Exam Per Admitting Provider PHYSICAL EXAMINATION: GENERAL: The patient is of moderate build, not in acute distress. VITAL SIGNS: Temperature 36.4, pulse 130, respiratory rate 23, blood pressure 90/53, oxygen 100% on 5 liters and trach collar. HEENT: Pupils equal, round and reactive to light. Oral mucosa moist. NECK: Trach present with oxygen on. CARDIOVASCULAR: S1 and S2 heard. Tachycardia. No murmurs, no gallop. RESPIRATORY SYSTEM: Normal AP diameter. No accessory muscle use. No wheezing, no crackles. ABDOMEN: PEG tube seen, PEG tube site is clean. No guarding, no rigidity, no distention, no tenderness. CENTRAL NERVOUS SYSTEM: Alert and oriented. Speech is clear. No facial droop. Insight is good. Can move his upper extremities. Wiggle his lower extremities. EXTREMITIES: No edema, no erythema. Principal Diagnosis VRE bacteremia and urinary tract infection (CAUTI) ICD discharge paroxysmal atrial fibrillation gross hematuria Guillain-Endicott syndrome Discharge Exam CONSTITUTIONAL: WNWD, vitals as above, generally well-appearing EYES: normal conjunctivae, no scleral icterus ENT: external ear and nose normal, MMM NECK: trachea midline, tracheostomy with trach collar at 6LPM in place. RESPIRATORY: clear to auscultation bilaterally except for crackles at the left base, no rales or wheezes, normal respiratory effort CARDIOVASCULAR: regular rate and rhythm, S1 and 2 heard without murmurs, gallops or rubs, no JVD, no peripheral edema CHEST: inspection of chest was normal GASTROINTESTINAL: soft, nontender, nondistended. PEG tube in place with normal surrounding skin and no drainage noted. MUSCULOSKELETAL: moving all limbs against gravity with some persistent deficits such as with dorsiflexion of both feet, plantarflexion is strong bilaterally, can move his arms around with fine motor control limited. Generalized weakness. head is normocephalic and atraumatic SKIN: warm and dry, hands are notably swollen L>R NEUROLOGIC: CN 2-12 grossly intact, normal cognition, normal speech PSYCHIATRIC: alert cooperative and oriented to person, place and time. Discharge Data Allergies Allergy/AdvReac Type Severity Reaction Status Date / Time ciprofloxacin Allergy Unknown Verified 03/24/21 19:06 sertraline Allergy Unknown Verified 03/24/21 19:06 Consultations 03/24/21 22:38 ED Decision to Admit Stat 03/25/21 01:53 Consult Kennel Manager Dog Track Routine 03/25/21 02:46 Consult Urology Routine 03/25/21 08:00 Consult Cardiology Routine 03/26/21 10:19 Consult Infectious Diseases Routine Ordered Studies Laboratory Results WBC 7.34 K/uL (4.8-10.8) 03/29/21 04:48 RBC 3.89 M/uL (4.7-6.1) L 03/29/21 04:48 Hgb 11.7 g/dL (14.0-18.0) L 03/29/21 04:48 Hct 35.9 % (42-52) L 03/29/21 04:48 MCV 92.3 fL (80-100) 03/29/21 04:48 MCH 30.1 pg (25-34) 03/29/21 04:48 MCHC 32.6 g/dL (32-36) 03/29/21 04:48 RDW Std Deviation 53.7 fL (36.4-46.3) H 03/29/21 04:48 RDW Coeff of Jackie 15.8 % (11.5-14.5) H 03/29/21 04:48 Plt Count 294 K/uL (130-400) 03/29/21 04:48 MPV 11.1 fL (7.4-10.4) H 03/29/21 04:48 Immature Gran % (Auto) 0.4 % 03/29/21 04:48 Neut % (Auto) 52.1 % 03/29/21 04:48 Lymph % (Auto) 36.2 % 03/29/21 04:48 Alger % (Auto) 8.3 % 03/29/21 04:48 Eos % (Auto) 2.6 % 03/29/21 04:48 Baso % (Auto) 0.4 % 03/29/21 04:48 Neut # (Auto) 3.82 K/uL (1.4-6.5) 03/29/21 04:48 Lymph # (Auto) 2.66 K/uL (1.2-3.4) 03/29/21 04:48 Alger # (Auto) 0.61 K/uL (0.11-0.59) H 03/29/21 04:48 Eos # (Auto) 0.19 K/uL (0-0.5) 03/29/21 04:48 Baso # (Auto) 0.03 K/uL (0-0.2) 03/29/21 04:48 Immature Gran # (Auto) 0.03 K/uL (0.00-0.02) H 03/29/21 04:48 Absolute Nucleated RBC 0.02 K/uL (0-0) H 03/25/21 05:12 Nucleated RBC % (auto) 0.1 % 03/25/21 05:12 PT 12.3 Seconds (9.0-12.0) H 03/24/21 20:16 INR 1.2 (0.9-1.1) H 03/24/21 20:16 APTT 27.6 Seconds (21.0-31.0) 03/24/21 20:16 PTT Ratio 1.0 03/24/21 20:16 Sodium 134 mmol/L (136-145) L 03/31/21 04:48 Potassium 3.5 mmol/L (3.5-5.1) 03/31/21 04:48 Chloride 102 mmol/L (98-107) 03/31/21 04:48 Carbon Dioxide 27 mmol/L (21-32) 03/31/21 04:48 Anion Gap 5.0 (3-11) 03/31/21 04:48 BUN 11 mg/dl (7-18) 03/31/21 04:48 Creatinine 0.63 mg/dl (0.6-1.4) 03/31/21 04:48 Est Cr Clr Drug Dosing 123.9 ml/min 03/31/21 04:48 Est GFR ( Amer) 110.9 ml/min 03/31/21 04:48 Est GFR (Non-Af Amer) 95.7 ml/min 03/31/21 04:48 BUN/Creatinine Ratio 17.7 (10-20) 03/31/21 04:48 Glucose 107 mg/dl (70-99) H 03/31/21 04:48 Lactate 2.2 mmol/L (0.4-2.0) H* 03/25/21 07:18 Calcium 9.1 mg/dl (8.5-10.1) 03/31/21 04:48 Phosphorus 3.5 mg/dl (2.5-4.9) D 03/27/21 04:47 Magnesium 1.9 mg/dl (1.8-2.4) 03/29/21 04:44 Total Bilirubin 0.4 mg/dl (0.2-1) 03/26/21 05:12 AST 40 U/L (15-37) H 03/26/21 05:12 ALT 53 U/L (12-78) 03/26/21 05:12 Alkaline Phosphatase 92 U/L (45-117) 03/26/21 05:12 Troponin I 0.037 ng/ml (0-0.045) 03/25/21 08:47 Total Protein 5.7 gm/dl (6.4-8.2) L D 03/26/21 05:12 Albumin 2.3 gm/dl (3.4-5.0) L 03/26/21 05:12 Globulin 3.4 gm/dl (2.5-4.0) 03/26/21 05:12 Albumin/Globulin Ratio 0.7 (0.9-2) L 03/26/21 05:12 Lipase 76 U/L (73-393) 03/24/21 20:16 Procalcitonin 46.84 ng/ml (0-0.5) H 03/25/21 07:18 Random Cortisol 24.98 mcg/dl 03/25/21 07:18 Specimen Hemolysis 03/26/21 05:12 Urine Color Dark Yellow 03/24/21 Unknown Urine Appearance Cloudy (Clear) A 03/24/21 Unknown Urine pH 5.5 (4.5-7.5) 03/24/21 Unknown Ur Specific Dulce 1.014 (1.000-1.030) 03/24/21 Unknown Urine Protein 1+ (Negative) H 03/24/21 Unknown Urine Glucose (UA) Negative (Negative) 03/24/21 Unknown Urine Ketones Negative (Negative) 03/24/21 Unknown Urine Blood 3+ (Negative) H 03/24/21 Unknown Urine Nitrite Negative (Negative) 03/24/21 Unknown Urine Bilirubin Negative (Negative) 03/24/21 Unknown Urine Urobilinogen Negative (Negative) 03/24/21 Unknown Ur Leukocyte Esterase Trace (Negative) H 03/24/21 Unknown Urine WBC (Auto) 1-5 /hpf (0-5) 03/24/21 Unknown Urine RBC (Auto) >30 /hpf (0-4) H 03/24/21 Unknown U Hyaline Cast (Auto) 0 /lpf (0-5) 03/24/21 Unknown U Epithel Cells (Auto) 0-5 /lpf (0-5) 03/24/21 Unknown Urine Bacteria (Auto) 1+ (Negative) H 03/24/21 Unknown Nasal Screen MRSA (PCR) Positive (Negative) A 03/25/21 03:15 COVID-19 Eval Order Covid19 at [facility] 03/24/21 Unknown SARS-CoV-2 (PCR) NEGATIVE (Negative) 03/24/21 Unknown Impressions Chest X-Ray 03/24/21 22:15 SINGLE VIEW CHEST CLINICAL HISTORY: Palpitations. FINDINGS: An AP, portable, upright chest radiograph is compared to study dated 07/20/2009. The examination is degraded by portable technique and patient rotation. A 2-lead cardiac pacemaker partially obscures the left mid chest. A tracheostomy is in place. The heart is enlarged. The pulmonary vasculature is noncongested. There is elevation of the right hemidiaphragm with bibasilar airspace opacities. No large pleural effusion or pneumothorax is seen. The skeletal structures are osteopenic. The bony thorax is grossly intact. A gastrostomy tube is seen in the upper abdomen. IMPRESSION: 1. Cardiomegaly and cardiac pacemaker. There is no radiographic evidence of congestive failure. 2. Dependent airspace opacities likely represent atelectasis. Correlate clinically for evidence of a superimposed infectious/inflammatory pneumonitis. ACT 112: Negative or not required by law. Electronically signed by: Justin Sky M.D. 03/25/2021 8:52 AM Abdomen/Pelvis CT 03/25/21 01:54 CT OF THE ABDOMEN AND PELVIS WITH CONTRAST CLINICAL HISTORY: Abdominal and back pain. COMPARISON STUDY: None. TECHNIQUE: Following IV administration of 95 mL of Optiray, axial images of the abdomen and pelvis were obtained from the lung bases to the proximal femurs. Images were reviewed in the axial, sagittal, and coronal planes. IV contrast was administered without complication. Automated exposure control was utilized for the study. A dose lowering technique was utilized adhering to the principles of ALARA. CT DOSE: 1585.08 mGy.cm FINDINGS: Pacer leads are partially imaged. There is moderate cardiomegaly. Lower lung opacities favor atelectasis. No pneumatosis, free air or portal venous gas is present. The liver, spleen, adrenal glands and pancreas are unremarkable. Renal lesions favor cysts. There is no hydronephrosis. The gallbladder is moderately distended. There is no adjacent infiltration. A gastrostomy tube is in place. There is no evidence for a bowel obstruction. There is hyperdense material within the rectum and distal colon. Colonic diverticulosis is noted without evidence for acute diverticulitis. There is no evidence for a bowel obstruction. Infrarenal abdominal aorta is ectatic. There is moderate atherosclerotic plaque. Steele balloon within the bladder is noted. Bladder is collapsed. There is no acute fracture or suspicious lesion within the visualized skeletal structures. Multilevel degenerative changes of the lumbar spine are present. Fat-containing umbilical hernia is present. IMPRESSION: 1. Moderate gallbladder distention. However, no pericholecystic infiltration. 2. Colonic diverticulosis without evidence for acute diverticulitis. No bowel obstruction. Gastrostomy tube in place. 3. Lower lung opacities which favor atelectasis. ACT 112: Negative or not required by law. Electronically signed by: Jesus Alfred M.D. 03/25/2021 6:57 AM Hospital Course (1) Hematuria, gross: Sent from [facility] for gross hematuria Attempted Steele while at [facility] as he was being straight cathed 4-5 times a day Hematuria secondary to traumatic catheterization, resolved. Urology on board - no further interventions needed. Hemoglobin stable, cont steele catheter (2) VRE (vancomycin-resistant Enterococci) infection: (3) Gram-positive bacteremia: per ID recs, daptomycin was changed to ampicillin with plan for PO amoxicillin at discharge, treat until 04/08 Also, as he is no longer on steroids, Bactrim prophylaxis for PCP pneumonia was stopped. TTE revealed no evidence of infective endocarditis and repeat BCx after treatment initiation with abx revealed clearance of the bacteria. (4) Catheter-associated urinary tract infection: VRE CAUTI-cont antibiotic regimen as stated above. (5) AICD discharge: Interrogation reveals dysrythmia (Afib w/ very RVR Vs V Tach) and was shocked 3 times around 10 PM 03/24 LVEF this hospital stay 25% as compared to 40 to 45% in January. Continue to monitor electrolytes and replace as needed. Cardiology on board: Transitioned to amiodarone 200 mg twice daily. Continue Lasix 40 mg twice daily. Monitor ins and outs along with daily weights. Continue with metoprolol, Eliquis reinitiated 03/26/21, added spironolactone 12.5 mg daily 03/29 (6) Severe left ventricular systolic dysfunction: h/o NICM, compensated/euvolemic on exam. Cont medical management including lisinopril, and metoprolol. Continue furosemide 40 mg p.o. twice daily and spironolactone added for cardiomyopathy and potassium support. Continue potassium chloride elixir supplementation via PEG tube daily. Continue magnesium oxide via PEG tube daily. BMP in a.m. (7) PAF (paroxysmal atrial fibrillation): Cardiology following, cont amio 200mg PO BID, metoprolol 50mg PO q8h, Eliquis 5mg PO BID. Remains in sinus rhythm on telemetry review. (8) Guillain Lowery syndrome: Per skin assessment on nursing note, skin is reddened without evidence of breakdown. Cont to offload pressure points and ensure turn q2h. Cont to work wtih PT and OT as often as able. Cont supportive care via trach, PEG and steele catheter. At time of discharge he was hemodynamically stable and afebrile. He was doing well on antibiotic therapy and oxygenating well on trach collar. He was speaking well. Hematuria had resolved with new steele catheter in place. He was discharged in stable condition back to [facility] to continue physical rehabilitation for GBS. Total Time Total Time Spent Total Time Spent (In Minutes): 60 Discharge Plan Discharge Items Patient Disposition: Transfer Inpatient Rehab Fac Reason For Visit: hematuria Discharge Diagnosis: VRE bacteremia and urinary tract infection ICD discharge atrial fibrillation gross hematuria Guillain-Endicott syndrome Condition on Discharge: Good Activity: Resume your previous activity Non-emergency contact: Primary Care Provider Call non-emergency contact if: you have any medication questions, your symptoms worsen, your pain is not controlled, your pain is worsening, your pain is unusual for you, your pain is concerning for you and you have a fever Follow-up/Referrals: PCP,NO [Primary Care Provider] - Diet: Regular Diet Texture: Mechanical soft (ground) Diet Comment: minced & moist Addtl Attending Provider Instructions: Please take all medications as instructed on discharge list below. You were started on AMIODARONE which should continue to be loaded at 200mg twice daily x 10 days. After this, please continue amiodarone at 200mg ONCE DAILY. You were also started on SPIRONOLACTONE and should have a repeat BMP in 1-2 weeks to ensure your electrolytes and renal function is stable. Please continue taking AMOXICILLIN with your last dose on 04/08, roughly 10 more days. A close follow-up with your primary care physician is recommended as soon as possible to review medication changes and ongoing issues. Please follow-up with cardiology in 4-6 weeks to monitor medical therapy for treatment of atrial fibrillation and cardiomyopathy. Please continue with nocturnal PEG tube feeds. You were on Peptamen at [facility], please have nutrition reassess you and make recommendations at rehab facility. It was a pleasure taking care of you! Please call if you have any questions or problems. You can reach a [facility] hospitalist on duty at [facility] 24 hours a day by calling [phone]. Take care of yourself. Araceli Rothman, DO [facility] Hospitalist Pending Studies at Discharge: No Stand-Alone Forms: My [facility] Skilled Items Patient informed of condition?: Yes DNR: No Discharge Level of Care: Acute rehab Communicable Disease: No Discharge Prognosis: Stable Lines: None Urinary Catheter: Yes Medications and DC Order Prescriptions: New amiodarone 200 mg Tablet 200 mg PO BIDM Qty: 20 RF: 0 spironolactone 25 mg Tablet 12.5 mg PO DAILY Qty: 10 RF: 0 potassium chloride 20 mEq/15 mL Liquid 20 meq PEG QAM Qty: 600 RF: 0 amoxicillin 500 mg capsule 500 mg PO Q8H Qty: 30 RF: 0 Continued furosemide 40 mg Tablet 40 mg feeding tube .BIDAC RF: 0 latanoprost 0.005 % Drops 1 drp OPB HS RF: 0 acetaminophen 325 mg Tablet 650 mg feeding tube Q4 PRN (Reason: Pain (Scale Score 1-3)) RF: 0 melatonin 3 mg Tablet 9 mg feeding tube HS RF: 0 guaifenesin 100 mg/5 mL Liquid 100 mg feeding tube Q6 RF: 0 lidocaine 5 % Adhesive Patch,Medicated 1 patch TOPICAL QAM RF: 0 cholecalciferol (vitamin D3) [Vitamin D3] 25 mcg (1,000 unit) Capsule 12.5 mcg feeding tube DAILY RF: 0 omeprazole magnesium 10 mg Susp,Delayed Release For Recon 20 mg feeding tube .BIDAC RF: 0 apixaban 5 mg Tablet 5 mg feeding tube Q12 RF: 0 cyclobenzaprine 10 mg Tablet 10 mg PO TID PRN (Reason: Spasms) RF: 0 tramadol 50 mg Tablet 50 mg PO Q4 PRN (Reason: Pain) RF: 0 nystatin 100,000 unit/gram Cream 1 applic TOPICAL BID RF: 0 metoprolol tartrate 50 mg Tablet 50 mg feeding tube Q8 RF: 0 mirtazapine 15 mg Tablet 15 mg feeding tube HS RF: 0 lisinopril 2.5 mg Tablet 2.5 mg feeding tube DAILY RF: 0 oxycodone 5 mg Tablet 5 mg PO Q4H PRN (Reason: Pain) RF: 0 docusate sodium 50 mg/5 mL Liquid 100 mg feeding tube BID RF: 0 chlorhexidine gluconate 0.12 % Mouthwash 15 ml BUCCAL Q4 RF: 0 Discontinued sulfamethoxazole-trimethoprim 800-160 mg Tablet 1 tab PO 3XWK RF: 0 Discharge Orders: Discharge Order (Routine); Ordered 03/31/21 Ordered By: Araceli Rothman Admission Data Admit Date/Time: 03/25/21 00:46 Attending Provider: Araceli Rothman Admit Provider: Gabo Sheppard Primary Care Provider: PCP,NO Other Providers: [facility] ; Gabo Sheppard ; Amaury Chowdary ; Hal Umaña ; Alcides Ramirez ; Karl Tran ; Lisa Cortez ; Eldon Blanchard ; Tereza Damon ; Josette York ; Lakesha Bhatt ; Sen Girard ; Zachary Donaldson ; Radha Casillas ; Lela Bhatt ; Rogerio Ca ; Brandon Vital ; Isabella Clemens ; Tiburcio Hernandez I. ; Ish Brennan II ; Ilda Veronica ; Nico Ng Other Interventions: Discharge Summary Assessment (RN) Last Done: 03/31/21 12:45
[2021-03-31] MEDS: CYCLOBENZAPRINE HCL 10 MG TAB PO PRN (11:54)
== END 2021-03-31 13:14 | DRG 698 ==
LOC: ED 17:37 → 1E 03-25 00:46 → SUATTDRO 03-25 00:46 → 1E 03-25 02:29
DX: G61.0 Guillain-Barre syndrome; I48.91 Unspecified atrial fibrillation; B95.2 Enterococcus as the cause of diseases classified elsewhere; Y82.8 Other medical devices associated with adverse incidents; T83.511A Infection and inflammatory reaction due to indwelling urethral catheter, initial encounter; I49.01 Ventricular fibrillation; Z93.0 Tracheostomy status; Z95.810 Presence of automatic (implantable) cardiac defibrillator; R31.9 Hematuria, unspecified; N39.0 Urinary tract infection, site not specified; J96.11 Chronic respiratory failure with hypoxia; A41.9 Sepsis, unspecified organism; I10 Essential (primary) hypertension

== ENCOUNTER 2024-03-26 08:47 | Inpatient (IN) ==
--- NOTE | 2024-03-03 13:01 | PAT Medication Instructions ---
Medication Instructions Date of Service March 03, 2024 Home Medications acetaminophen 325 mg tablet 650 mg PO Q4 PRN Pain (Scale Score 1-3) apixaban 5 mg tablet (Eliquis) 5 mg PO BID cyanocobalamin (vitamin B-12) 1,000 mcg tablet (Vitamin B-12) 1,000 mcg PO QAM furosemide 40 mg tablet (Lasix) 40 mg PO QAM gabapentin 300 mg capsule 300 mg PO QAM gabapentin 300 mg capsule 600 mg PO HS lansoprazole 1 cap PO QAM latanoprost 0.005 % eye drops 1 drp OPB HS lidocaine HCl 1 % topical gel 1 ea topical HS melatonin 3 mg tablet 3 mg PO HS methimazole 10 mg tablet 10 mg PO QAM metoprolol succinate 50 mg tablet,extended release 24 hr 50 mg PO BID multivitamin 1 tab PO QAM rosuvastatin 10 mg tablet 10 mg PO HS sacubitril-valsartan 1 tab PO BID spironolactone 25 mg tablet 25 mg PO QAM trazodone 50 mg tablet 50 - 100 mg PO HS ASK your prescriber and surgeon apixaban 5 mg tablet (Eliquis) 5 mg PO BID (From anesthesia perspective, Eliquis needs to be stopped 72 hours before surgery. Please check if okay with doctor that prescribes this to you) STOP taking 24 hours before surgery lidocaine HCl 1 % topical gel 1 ea topical HS DO NOT take the morning of surgery cyanocobalamin (vitamin B-12) 1,000 mcg tablet (Vitamin B-12) 1,000 mcg PO QAM furosemide 40 mg tablet (Lasix) 40 mg PO QAM multivitamin 1 tab PO QAM sacubitril-valsartan 1 tab PO BID spironolactone 25 mg tablet 25 mg PO QAM Take morning of surgery With a small sip of water, OTHERWISE NOTHING TO EAT OR DRINK AFTER MIDNIGHT: acetaminophen 325 mg tablet 650 mg PO Q4 PRN Pain (Scale Score 1-3) (if needed) gabapentin 300 mg capsule 300 mg PO QAM lansoprazole 1 cap PO QAM methimazole 10 mg tablet 10 mg PO QAM metoprolol succinate 50 mg tablet,extended release 24 hr 50 mg PO BID Take evening before surgery acetaminophen 325 mg tablet 650 mg PO Q4 PRN Pain (Scale Score 1-3) (if needed) gabapentin 300 mg capsule 600 mg PO HS latanoprost 0.005 % eye drops 1 drp OPB HS melatonin 3 mg tablet 3 mg PO HS metoprolol succinate 50 mg tablet,extended release 24 hr 50 mg PO BID rosuvastatin 10 mg tablet 10 mg PO HS sacubitril-valsartan 1 tab PO BID trazodone 50 mg tablet 50 - 100 mg PO HS Other Notes If you have any questions please call us at [phone] or [phone] or [phone] or [phone]
--- NOTE | 2024-03-03 13:27 | Anesthesiology Consultation ---
Date of Service March 03, 2024 Assessment & Plan (1) Encounter for pre-operative examination: - Infectious disease screening: Per assessment on 03/03/24: No known recent infectious disease contacts or current infectious disease symptoms. 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 Reversed 02/2021. - Patient acceptable risk for surgery pending surgeon-ordered PCP (Dr. Blank, appt 03/24) and cardiology ([facility] cardio, appt 03/22) preop evaluat ions. Chart Review Chart Review: Patient NOT seen in Pre Admission Testing History Surgery Operation Date: 03/26/24 10:55 Proposed Procedures p Exploration and Poly Exchange of Left Total Knee Replacement - Braeden Horne MD Height/Weight Height: 6 ft Weight: 107 kg Allergies Allergy/AdvReac Type Severity Reaction Status Date / Time sertraline Allergy Intermediate Double Verified 03/03/24 14:55 vision and worsened anxiety ciprofloxacin Allergy Unknown Unknown Verified 03/03/24 12:22 Medications Home Medications Medication Instructions Recorded Confirmed Last Taken acetaminophen 325 mg tablet 650 mg PO Q4 PRN Pain (Scale Score 03/24/21 03/03/24 Unknown 1-3) apixaban 5 mg tablet (Eliquis) 5 mg PO BID 03/03/24 03/03/24 Unknown cyanocobalamin (vitamin B-12) 1,000 mcg PO QAM 03/03/24 03/03/24 Unknown 1,000 mcg tablet (Vitamin B-12) furosemide 40 mg tablet (Lasix) 40 mg PO QA 03/03/24 03/03/24 Unknown gabapentin 300 mg capsule 300 mg PO QAM 03/03/24 03/03/24 Unknown gabapentin 300 mg capsule 600 mg PO 03/03/24 03/03/24 Unknown lansoprazole 1 cap PO QAM 03/03/24 03/03/24 Unknown latanoprost 0.005 % eye drops 1 drp OPB 03/03/24 03/03/24 Unknown lidocaine HCl 1 % topical gel 1 ea topical 03/03/24 03/03/24 Unknown melatonin 3 mg tablet 3 mg PO 03/03/24 03/03/24 Unknown methimazole 10 mg tablet 5 mg PO QAM 03/03/24 03/03/24 Unknown metoprolol succinate 50 mg 50 mg PO BID 03/03/24 03/03/24 Unknown tablet,extended release 24 hr multivitamin 1 tab PO QAM 03/03/24 03/03/24 Unknown rosuvastatin 10 mg tablet 10 mg PO HS 03/03/24 03/03/24 Unknown sacubitril 24 mg-valsartan 26 mg 1 tab PO BID 03/03/24 03/03/24 Unknown tablet (Entresto) spironolactone 25 mg tablet 25 mg PO QAM 03/03/24 03/03/24 Unknown trazodone 50 mg tablet 50 mg PO HS 03/03/24 03/03/24 Unknown Past Medical History Medical History AICD (automatic cardioverter/defibrillator) present 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, treated at [facility] and also [facility] for an episode of sepsis d/t a steele catheter malfunction in January 2021 > all resolved History of hypertension History of infection with vancomycin resistant Enterococcus (VRE) Urine (2020) Denies current issues Hx of malignant neoplasm of prostate (2006) Hyperlipidemia Hypertension Hyperthyroidism Insomnia PAF (paroxysmal atrial fibrillation) Follows with [facility] Peripheral neuropathy Toes Sleep apnea CPAP + 4L O2 Exercise / Class Metabolic Activity II 4-5 Yardwork/Stairs/Walk up hill (one FS: No CP, no SOB) Past Family History Family History Other No family history of adverse response to anesthesia Past Surgical History Surgical History H/O toe surgery Right big toe surgery + screw placement History of automatic internal cardiac defibrillator (AICD) ~2016 History of cardiac cath 11/2023- non-obstructive CAD, no stents History of cardiac radiofrequency ablation Early 2023 for A.fib [facility] History of cataract surgery bilateral History of colonoscopy History of esophagogastroduodenoscopy (EGD) History of tracheostomy (2020) + subsequent reversal R/t GBS (trach from 01/2021-02/2021) Hx of gastrostomy with reversal in 2020 Hx of prostatectomy (2006) Hx of total knee arthroplasty left S/P lumbar laminectomy Past Anesthesia History No Hx of Anesthesia Complications and No Family Hx of Anesthesia Complications History of PONV No Hx of Motion Sickness and History of PONV (Ether (as child)- PONV) Social History Smoking Status: Never smoker Do You Dip or Chew Tobacco: No Hx Alcohol Use: No Hx Substance Use: No Review of Systems Patient denies chest pain, shortness of breath, dyspnea on exertion, fever, chills, cough, wheezing, palpitations. Physical Exam Vital Signs BP 97/61 P 61 TEMP 98.1 SP02 95%RA RESP 18 Physical Full cervical extension range of motion. Full TMJ range of motion. TMD 3 finger breaths Mallampati Score I Dentition: + missing (including upper front left) Lungs: clear throughout to auscultation Cardiac: regular rate and rhythm, no murmurs noted Spine: normal Carotid arteries: negative bruit Extremities: no LE edema + trach scar Lab Results Anesthesia Preop Results Results Anesthesia Widget: WBC 7.26 K/ul (4.8-10.8) 03/03/24 Hgb 13.7 g/dl (14.0-18.0) L 03/03/24 Hct 40.6 % (42.0-52.0) L 03/03/24 Plt 252 K/uL (130-400) 03/03/24 Na 138 mmol/L (136-145) 03/03/24 K 4.2 mmol/L (3.5-5.1) 03/03/24 Cl 108 mmol/L (98-107) H 03/03/24 CO2 22 mmol/L (21-32) 03/03/24 BUN 24 mg/dl (6-23) H 03/03/24 Creat 1.12 mg/dl (0.6-1.4) 03/03/24 Glucose Level 122 mg/dl (70-99(Fasting)) H 03/03/24 PT 12.6 Seconds (9.0-12.0) H 03/03/24 PTT 31 Seconds (21-31) 03/03/24 INR 1.2 (0.9-1.1) H 03/03/24 Urine Color Dark Yellow 03/03/24 Urine Appearance Clear (Clear) 03/03/24 Urine pH 5.5 (4.5-7.5) 03/03/24 Urine Specific [place] 1.027 (1.000-1.030) 03/03/24 Urine Protein Negative (Negative) 03/03/24 Urine Glucose (UA) Negative (Negative) 03/03/24 Urine Ketones Trace (Negative) H 03/03/24 Urine Blood Negative (Negative) 03/03/24 Urine Nitrite Negative (Negative) 03/03/24 Urine Bilirubin 1+ (Negative) H 03/03/24 Urine Urobilinogen Negative (Negative) 03/03/24 Urine Leukocyte Esterase Negative (Negative) 03/03/24 Blood Type O Negative 03/03/24 Antibody Screen NEGATIVE 03/03/24 Testing Laboratory Results Mildly elevated coags- patient taking Eliquis* Electrocardiogram Date: 02/20/24 Atrial-paced rhythm with prolonged AV conduction with PACs at 67bpm. LAD. RBBB. Chest X-Ray Date: 03/03/24 FINDINGS: Left subclavian pacer/AICD. Cardiac silhouette is enlarged. Hyperinflation with diaphragmatic flattening. Chronic interstitial coarsening. Mild right hemidiaphragmatic elevation. No pneumothorax or pleural effusion. Degenerative changes of the shoulders and spine. IMPRESSION: Cardiomegaly without acute process. Echocardiogram Date: 02/10/24 LVEF 20-25%. Severe global like hypokinesis of the left ventricle. No LV regional wall motion abnormality. Normal RV size and systolic function. Stress Test Date: 08/21/23 Myocardial perfusion appears normal following adequate stress. No reversible or fixed ischemia seen. LVEF 41% at rest, 27% post-stress. Stress test report/findings scanned under 02/20/24 cardiology document in [facility]* Cardiac Catheterization Date: 12/02/23 RCA has ostial 30-40% stenosis with no dampening on engagement. The remainder of vessel is free of disease. Left main normal. LAD with 50% proximal stenosis at the bifurcation of a diagonal that has a 60-70% smooth stenosis. The remainder of the vessels are free of significant disease. Conclusion: Nonobstructive coronary disease in a right dominant system with moderate stenosis in the LAD/diagonal bifurcation. Cardiac cath report/findings scanned under 02/20/24 cardiology document in [facility]* Other Testing Pacer/ICD check Date: 02/09/24 [employer] Battery longevity 3.2-4.0 years More DDDR RAP 64.0%, RVP 5.5%, PVC burden 2.5% + A. fib/SVT, Zero shocks delivered. "Appropriate device function"
--- NOTE | 2024-03-24 08:24 | History & Physical Report ---
Date of Service March 24, 2024 Assessment & Plan (1) Painful total knee replacement, left: Plan: Exploration revision polyethylene insert left knee replacement patient will be admitted for overnight stay due to significant medical history probable home [facility] History of Present Illness Chief Complaint: Left knee locking and instability Primary Care Provider: Raquel Reich DO Patient is a 78-year-old male with a history of uncomplicated left total knee replacement performed in 2009. He was doing well until recently when he had a trauma where he was hit by a piece of lumber. Subsequent to that he is now complains of locking and significant instability of the knee. His knee locks at least 2-3 times a day. Radiographically he has a cemented posterior stabilized knee cement interfaces are stable and the patella tracks well. His exam is consistent with possibility of a broken tibial post versus significant intra- articular band. Patient is admitted for surgical exploration and very likely polyethylene exchange. He does have a very significant cardiac history with nonischemic cardiomyopathy atrial fibrillation atrial flutter and reduced ejection fraction at 20 to 25% Allergies Allergy/AdvReac Type Severity Reaction Status Date / Time sertraline Allergy Intermediate Double Verified 03/03/24 14:55 vision and worsened anxiety ciprofloxacin Allergy Unknown Unknown Verified 03/03/24 12:22 Home Medications Medication Instructions Recorded Confirmed Type acetaminophen 325 mg tablet 650 mg PO Q4 PRN Pain (Scale Score 03/24/21 03/03/24 History 1-3) apixaban 5 mg tablet (Eliquis) 5 mg PO BID 03/03/24 03/03/24 History cyanocobalamin (vitamin B-12) 1,000 mcg PO QAM 03/03/24 03/03/24 History 1,000 mcg tablet (Vitamin B-12) furosemide 40 mg tablet (Lasix) 40 mg PO QAM 03/03/24 03/03/24 History gabapentin 300 mg capsule 300 mg PO QA 03/03/24 03/03/24 History gabapentin 300 mg capsule 600 mg PO 03/03/24 03/03/24 History lansoprazole 1 cap PO QA 03/03/24 03/03/24 History latanoprost 0.005 % eye drops 1 drp OPB 03/03/24 03/03/24 History lidocaine HCl 1 % topical gel 1 ea topical 03/03/24 03/03/24 History melatonin 3 mg tablet 3 mg PO HS 03/03/24 03/03/24 History methimazole 10 mg tablet 5 mg PO QAM 03/03/24 03/03/24 History metoprolol succinate 50 mg 50 mg PO BID 03/03/24 03/03/24 History tablet,extended release 24 hr multivitamin 1 tab PO QAM 03/03/24 03/03/24 History rosuvastatin 10 mg tablet 10 mg PO HS 03/03/24 03/03/24 History sacubitril 24 mg-valsartan 26 mg 1 tab PO BID 03/03/24 03/03/24 History tablet (Entresto) spironolactone 25 mg tablet 25 mg PO QAM 03/03/24 03/03/24 History trazodone 50 mg tablet 50 mg PO HS 03/03/24 03/03/24 History Past Med/Surg History Problem List (Updated 03/24/24 @ 08:23 by Braeden Horne MD) Painful total knee replacement, left Encounter for pre-operative examination Medical History CAD (coronary artery disease) 11/2023: non-obstructive CAD Hyperlipidemia Hypertension Glaucoma Hyperthyroidism Peripheral neuropathy Toes Hx of malignant neoplasm of prostate (2006) GERD (gastroesophageal reflux disease) Congestive heart failure Follows with [facility] Cardiology History of infection with vancomycin resistant Enterococcus (VRE) Urine (2020) Denies current issues Insomnia Sleep apnea CPAP + 4L O2 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 device Implanted ~2016 Follows with [facility] Cardiology PAF (paroxysmal atrial fibrillation) Follows with [facility] History of hypertension Surgical History History of cardiac cath 11/2023- non-obstructive CAD, no stents Hx of prostatectomy (2006) History of cataract surgery bilateral History of esophagogastroduodenoscopy (EGD) Hx of gastrostomy with reversal in 2020 H/O toe surgery Right big toe surgery + screw placement Hx of total knee arthroplasty left S/P lumbar laminectomy History of cardiac radiofrequency ablation Early 2023 for A.fib [facility] History of colonoscopy History of automatic internal cardiac defibrillator (AICD) ~2017 History of tracheostomy (2020) + subsequent reversal R/t GBS (trach from 01/2021-02/2021) Family History Other No family history of adverse response to anesthesia Social History Smoking Status: Never smoker Second Hand Exposure: No; Do You Dip or Chew Tobacco: No; Hx Alcohol Use: No Hx Substance Use: No Preferred Language: Colombian Communication Ability: Effective Quality Assurance Monitor Body Required: No Beliefs That Will Affect Care: None Current Living Situation: Spouse Feels Safe at Home: Yes Assistive Devices: CPAP, Glasses, Hearing Aid - Bilateral and Oxygen - at Night Review of Systems Review of Systems: Knee locking and instability Physical Exam Physical Exam: Weight 109 kg BMI 33 General: Large statured elderly male who appears his stated age HEENT: NCAT, EOMI, PERRLA. Neck: Supple negative bruits Heart: Regular rate and rhythm no murmurs Lungs: Breath sounds clear and present in all murphy Abdomen: Obese soft nontender bowel sounds positive Extremities: Left knee shows a well-healed scar consistent with previous surgery there is no effusion range of motion is 0 to 120 degrees with 2 to 3 mm medial and lateral laxity. Neurological and vascular: Intact Results & Data Results & Data Vital Signs (Past 12 Hours) Blood pressure 116/84 Pulse 76
[~2024-03-26 08:47] MED LIST: BUPIVACAINE 0.5 % 5 MG/1 ML PF 10ML VIAL ONE; ROPIVACAINE 0.5% 5 MG/ML 30 ML VIAL ONE
--- NOTE | 2024-03-26 09:15 | History & Physical Bridge Note ---
Date of Service March 26, 2024 History & Physical Bridge Note I have examined the patient, reviewed the History & Physical and in the interval since the performance of the History & Physical I have noted the following changes of clinical significance: no changes noted
[2024-03-26] MEDS: LR 60ML/HR IV SCH (09:35)
[2024-03-26] MEDS: VANCOMYCIN HCL 1,500 MG in SODIUM CHLORIDE 0.9% 500 ML IV SCH (09:35)
[2024-03-26] MEDS: LR 500ML BOLUS, THEN 15ML/HR IV SCH (09:35)
[2024-03-26] MEDS: ACETAMINOPHEN 500 MG TAB PO SCH (10:17)
[2024-03-26] MEDS: FAMOTIDINE 20 MG TAB PO SCH (10:17)
[2024-03-26] MEDS: GABAPENTIN 300 MG CAP PO SCH ×2 (10:17→21:51)
[2024-03-26] MEDS: dexAMETHasone**PF** 10 MG/ML VIAL IV SCH (10:18)
[2024-03-26] MEDS: METOCLOPRAMIDE HCL 10 MG TABLET PO SCH (10:18)
[2024-03-26] MEDS: CeleBREX 200 MG CAP PO SCH (10:18)
--- OUTSIDE RECORDS SUMMARY | 2024-03-26 10:20 | External Medical Summary | Summary of Care ---
Author Name Unknown Organization [facility] Ambulatory Address [address] [place] [address] Phone Care Team Providers Care Recreational Specialist Name Role Phone Raquel Reich Primary Care Provider [phone] Durga Singleton MD Unavailable [phone] Martin Zavaleta MD Unavailable [phone] Raj Deluna MD Unavailable [phone] Roque Fierro Unavailable [phone] Jose Rainey PA-C Unavailable River Hedrick MD Unavailable [phone] Manjinder Cisneros MD Unavailable Suleman Johnson MD Unavailable [phone] Leoncio Mora MD Unavailable [phone] Donte Nowak MD Unavailable Provider, Generic External Data Unavailable Unavailable Na Deluna MD Unavailable Amalia Monroy DO Unavailable + [phone] [facility], Ajit Shahid MD Unavailable [phone] Roxi Chance Unavailable [phone] Marleni Cardenas PA-C Unavailable [phone] Abdifatah Dinh MD Unavailable [phone] Leoncio Cavazos PT Unavailable [phone] Baer, Gisselle Gem OT Unavailable Durga Mancilla MD Unavailable Christine Chaudhry BUNDLE CLERK Unavailable KrishnaKalyan MATOS Unavailable [phone] Candido Villeda CINDY Unavailable Kendra Jeff MD Unavailable Leoncio Olivas DPM Unavailable [phone] Ximena Cortes PA-C Unavailable [phone] Kayleigh Hoskins DO Unavailable [phone] Ricardo Nguyen MD Unavailable Jerad Kelly MD Unavailable [phone] Ameya Guardado MD Unavailable [phone] Ze Scherer MD Unavailable [phone] Alcides Serna MD Unavailable [phone] Guillen MD Unavailable Roberta Seo Unavailable Nurse, Airc Parmar Unavailable Unavailabl e Marina Montilla MD Unavailable Source Comments This information has been disclosed to you from records protected by federal confidentiality rules (42 CFR part 2). The federal rules prohibit you from making any further disclosure of information inthis record that identifies a patient as having or having had a substance use disorder either directly, by reference to publicly available information, or through verification of such identification by another person unless further disclosure is expressly permitted by the written consent of the individual whose information is being disclosed or as otherwise permitted by 42 CFR part 2. A general authorization for the release of medical or other information is NOT sufficient for this purpose (seesection 2.31). The federal rules restrict any use of the information to investigate or prosecute with regard to a crime any patient with a substance use disorder, except as provided at sections 2.12(c)(5) and 2.65.[facility] Reason for Referral * Radiology - Authorized Specialty Diagnoses / Procedures Referred By Contnisha t Referred To Contact Diagnoses Hyperthyroidism Procedures DXA AXIAL SKELETON 1 OR MORE SITES - SCREENING Raquel Reich DO [address] [place] [address] Referral ID Status Reason Start Date Expiration Date V isits Requested Visits Authorized [id number] Authorized 03/22/2024 1 1 Reason for Visit * Reason Comments Wellness Visit Encounter Details Date Type Department Care Team (Latest Contact Info) Description 03/22/2024 10:40 AM EDT Office Visit [facility] [address] [place] [address] 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: Willa Barron Sarah L, DO [address] [place] [address] Encounter for general adult medical examination with abnormal findings (Primary Dx); Preoperative clearance; Hyperthyroidism; Other hyperlipidemia; Obstructive sleep apnea of adult; Major depressive disorder with single episode, in partial remission (HCC); Other insomnia; Hx of ventricular tachycardia; Primary hypertension; Gastroesophageal reflux disease without esophagitis; Critical illness polyneuropathy (HCC); Dilated cardiomyopathy (HCC); Paroxysmal atrial fibrillation (HCC) Allergies Active Allergy Reactions Criticality Noted Date Comments Ciprofloxacin Nausea Low 05/09/2011 Sertraline Low 11/05/2019 Sertraline Hcl Low 06/18/2011 Other reaction(s): Irritability documented as of this encounter (statuses as of 03/23/2024) Medications Medication Sig Dispensed Refills Start Date End Date Status latanoprost (XALATAN) 0.005 % ophthalmic drops Apply 1 drop to eye nightly 01/12/2021 Active nystatin (MYCOSTATIN) 100,000 unit/gram topical cream 05/24/2021 Active spironolactone (ALDACTONE) 25 mg oral tablet Take 1 tablet by mouth daily 90 tablet 3 07/03/2021 Active melatonin 3 mg oral capsule Take 9 mg by mouth at bedtime Active lidocaine-priloc kala (EMLA) 2.5-2.5 % topical cream Apply small amount to painful area daily 30 g 1 10/04/2021 Active gabapentin (NEURONTIN) 300 mg oral capsule Take 1 capsule by mouth 3 times a day TO START with 1 capsule at night time and increase 1 capsule weekly 270 capsule 3 01/02/2022 Active Additional Information Patient taking differently:300 mg oral 3 times daily, TO START with 1 capsule at night time and increase 1 capsule weeklyPt takes 1 capsule in AM and 2 at HS, Reported on 04/10/2022 apixaban (ELIQUIS) 5 mg oral tablet Take 1 tablet by mouth 2 times a day 12 tablet 07/02/2022 Active amoxicillin (AMOXIL) 500 mg oral capsule Take 4 caps PO 1 hour prior to dental appointment. 4 capsule 1 08/06/2022 Active lansoprazole (PREVACID) 15 mg oral delayed-release capsule Take 30 mg by mouth daily 08/09/2022 Active multivitamin (DAILY VITAMIN) oral tablet Take 1 tablet by mouth daily Active cyanocobalamin (VITAMIN B-12) 500 mcg oral tablet Take 500 micrograms by mouth 11/21/2022 Active sacubitriL-valsa rtan (ENTRESTO) 24-26 mg oral tablet Take 1 tablet by mouth 2 times a day 180 tablet 3 04/01/2023 Active metoprolol succinate (TOPROL XL) 100 mg oral extended-release tablet 100 mg twice a day 180 tablet 3 09/17/2023 Active methIMAzole (TAPAZOLE) 10 mg oral tablet Take 0.5 tablets by mouth daily 11/28/2023 Active rosuvastatin (CRESTOR) 20 mg oral tablet Take 1 tablet by mouth daily 90 tablet 3 01/07/2024 Active flecainide (TAMBOCOR) 100 mg oral tablet Take 1 tablet by mouth every 12 hours 60 tablet 6 02/20/2024 Active furosemide (LASIX) 40 mg oral tablet Take 1 tablet by mouth daily 90 tablet 3 02/20/2024 Active furosemide (LASIX) 40 mg oral tablet Take 40 mg by mouth daily 90 tablet 06/07/2021 4 Discontinue d(Completed ) documented as of this encounter (statuses as of 03/23/2024) Active Problems Patient Care Coordination No te Formatting of this note migh t be different from the original. Raquel, Previous Diagnoses 1. G82.54 - Quadriplegia, C5-C7 incomplete (HCC) 2. Z93.0 - Tracheostomy status (HCC) 3. 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 E44.0 - Moderate protein-calorie malnutrition (HCC) 5. I42.0 - Dilated cardiomyopathy (HCC) 6. I73.9 - Peripheral vascular disease (HCC) 7. I48.0 - Paroxysmal atrial fibrillation (HCC) 8. C61 - Malignant neoplasm of prostate (HCC) 9. I10 - Essential (primary) hypertension 10. E78.49 - Other hyperlipidemia 11. 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 Thanks, DANISHA Coto Problem Noted Date Diagnosed Date Preoperative clearance 03/23/2024 Assessment & Plan (03/23/2024 4:38 PM EDT): Pt is medically stable for planned procedure per AHA Guidelines. This is a non-emergent, intermediate risk surgery. Patient has no signs or symptoms of active angina or heart failure. He is tolerating medical therapy well. Their clinical risk factors (listed above) are stable. Hyperthyroidism 03/03/2023 Assessment & Plan (03/23/2024 4:41 PM EDT): Will recommend repeating TSH and free T4 in 6 to 8 weeks. Continue methimazole 5 mg daily in the interim Assessment & Plan (09/02/2023 4:20 PM EST): Clinically stable with methimazole. Will follow. Assessment & Plan (03/03/2023 8:49 AM EDT): Improving. Asymptomatic. Continue methimazole and f/u with endocrinology tomorrow as scheduled Critical illness polyneuropathy 10/23/2021 Assessment & Plan (03/23/2024 4:43 PM EDT): Persistent neuropathy in bilateral lower extremities. Continue gabapentin 3 times daily. Will follow. Assessment & Plan (09/02/2023 4:19 PM EST): Continue gabapentin. Will follow clinically. Assessment & Plan (03/03/2023 8:53 AM EDT): Stable with gabapentin. Encouraged foot exam nightly. Will follow. Assessment & Plan (01/28/2022 1:50 PM EDT): Improving gradually. Residual numbness in the toes bilaterally. Will follow. Assessment & Plan (10/23/2021 6:32 PM EDT): Taking 300 mg gabapentin twice daily at this time. Discussed taking 600 mg before bed due to persistent and symptomatic neuropathy after 7 PM. Will follow. Chronic respiratory failure requiring continuous mechanical ventilation through tracheostomy 05/31/2021 Assessment & Plan (06/15/2021 5:31 PM EST): Monitor trach for ongoing healing. 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 Febrile prodrome. Assessment & Plan (03/03/2023 8:53 AM EDT): Significant improvement with residual numbness in forefoot alone. Continue gabapentin for residual neuropathy. Will follow Assessment & Plan (01/28/2022 1:50 PM EDT): Ongoing improvement. Will follow. Has gabapentin and tramadol for residual neuropathy Assessment & Plan (10/23/2021 6:31 PM EDT): . Continues to improve strength and exercise tolerance. Continue home exercises and regular walking Assessment & Plan (07/22/2021 10:18 PM EST): Improving strength and mobility with PT. Will follow Assessment & Plan (06/15/2021 5:36 PM EST): Referred to neurology for follow up. With persistent pain in the evening will increase gabapentin to 100mg qam and 300mg QHS. Continue follow up with urology for neurogenic bladder. Continue PT and OT. Monitr trach site healing to resolution, consider ENT assessment if sxs do not improve. Seborrheic keratoses 05/03/2020 Overview (06/15/2021): Lesions treated with liquid nitrogen in a bckjzv-wexx-theuki approach. Assessment & Plan (10/23/2021 6:26 PM EDT): Discussed lesion on the left yazidi consistent with seborrheic keratosis and options for treatment including cryotherapy or shave excision if needed due to irritation or inflammation. Will follow up as needed. Assessment & Plan (05/03/2020 2:35 PM EDT): Lesions treated with liquid nitrogen in a vyhbmt-lagr-haocxm approach. Post procedure instructions and expectations reviewed. Hx of ventricular tachycardia 09/28/2019 Assessment & Plan (03/23/2024 4:41 PM EDT): Stable with improvement in ejection fraction while in sinus rhythm. Continue flecainide. Will follow. Assessment & Plan (01/28/2022 1:49 PM EDT): Clinically stable with metoprolol Assessment & Plan (10/23/2021 6:31 PM EDT): Has an implanted cardioverter/defibrillator. Stable without firing recently. Will follow. Assessment & Plan (12/15/2020 11:01 AM EDT): Stable with regular rate and rhythm. Continue metoprolol as prescribed. 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 Assessment & Plan (09/02/2023 4:14 PM EST): History of V-tach. Working with cardiology. Will follow Assessment & Plan (03/03/2023 8:51 AM EDT): Denies recent shock. Stable since last cardioversion. Will follow. Assessment & Plan (06/15/2021 5:31 PM EST): Continue to monitor closely with reduced EF. Assessment & Plan (04/05/2020 10:00 AM EDT): Doing well since upgrade without complication or evidence of infection. Discussed follow up as scheduled with cardiology. Reveiwed red flags for emergent follow up and to call with any questions or concerns. Encounter for general adult medical examination with abnormal findings 03/15/2019 Assessment & Plan (03/23/2024 4:43 PM EDT): GHM reviewed including healthy diet, exercise and weight management. Continue regular dental and eye exams. [facility]. Reviewed immunization recommendations. F/U 1 year CPX. Assessment & Plan (03/03/2023 8:51 AM EDT): GHM reviewed including healthy diet, exercise and weight management. Continue regular dental and eye exams. Reviewed immunization recommendations. F/U 1 year CPX. Assessment & Plan (06/15/2021 5:35 PM EST): GHM reviewed including healthy diet, exercise and weight management. Continue regular dental and eye exams. Reviewed immunization recommendations. F/U 1 year CPX. Assessment & Plan (05/03/2020 2:27 PM EDT): GHM reviewed including healthy diet, exercise and weight management. Continue regular dental and eye exams. Reviewed immunization recommendations. F/U 1 year CPX. Assessment & Plan (03/15/2019 10:43 AM EDT): GHM reviewed including healthy diet, exercise and weight management. Continue regular dental and eye exams. Reviewed immunization recommendations. F/U 1 year CPX. Cardiomyopathy 03/10/2018 Assessment & Plan (03/23/2024 4:44 PM EDT): Ejection fraction improved on current therapy and with maintenance of sinus rhythm. Continue flecainide, Toprol, Entresto, Lasix and spironolactone. Has regular follow-up with cardiology. Asymptomatic at this time. Assessment & Plan (09/02/2023 4:18 PM EST): Reduced EF. No current evidence of volume overload. Continue lasix, spironolactone, entresto and metoprolol. F/U with cardiology as scheduled. Will follow. Assessment & Plan (03/03/2023 8:48 AM EDT): No signs of volume overload. Stable withmetoprolol, lasix and spironolactone. Assessment & Plan (08/29/2022 10:39 AM EST): Clinically stable. Tolerating Lasix and spironolactone well without edema or shortness of breath. Will follow. Assessment & Plan (01/28/2022 1:47 PM EDT): Most recent echocardiogram shows some improvement. We will continue to monitor with cardiology. Continue beta-abundio and ARB. Will follow. Assessment & Plan (10/23/2021 6:32 PM EDT): Improving ejection fraction continue metoprolol, ramipril, Lasix, and spironolactone. Weight stable. Reviewed blood pressures and discussed follow-up with cardiology. Assessment & Plan (07/22/2021 10:13 PM EST): Encouraged follow up with cardiology. continue b-abundio and ACEI with lasix and spironolactone daily. Will follow. Assessment & Plan (06/15/2021 5:34 PM EST): Continue plan to take b-abundio and ACEI with close cardiology follow up. No evidence of fluid overload with lasix and spironolactone, requesting refills along with Kcl. Will follow. Assessment & Plan (12/15/2020 10:58 AM EDT): Clinically stable with spironolactone without evidence of volume overload. Will continue ARB and b-abundio. Will follow. Assessment & Plan (09/17/2019 5:18 PM EST): Doing well with stable weight and no evidence of fluid overload. Continue spironolactone and Lasix daily. Assessment & Plan (03/15/2019 10:47 AM EDT): Stable echo. Continue regular cardiology follow up. Doing well with pacemaker. Continue lasix and spironolactone. Will follow. Assessment & Plan (09/10/2018 5:06 PM EST): Clinically stable on b-abundio, spironolactone, ARB, and lasix. Monitor weight and call with any sxs of orthopnea, weight gain or edema Obstructive sleep apnea of adult 03/10/2018 Overview (06/15/2021): CPAP use Assessment & Plan (03/23/2024 4:40 PM EDT): Stable with CPAP nightly with improvement in sleep quality and daytime wakefullness Assessment & Plan (09/02/2023 4:22 PM EST): Doing well with CPAP nightly. Will follow Assessment & Plan (03/03/2023 8:50 AM EDT): Restorative sleep without daytime somnolence. Continue CPAP and O2 nightly. Assessment & Plan (08/29/2022 10:44 AM EST): Doing well with CPAP nightly. Continue wearing CPAP nightly Assessment & Plan (01/28/2022 1:48 PM EDT): Continue CPAP with O2 nightly Assessment & Plan (10/23/2021 6:26 PM EDT): Stable with CPAP and O2 nightly. Restorative sleep. Will follow. Assessment & Plan (07/22/2021 10:16 PM EST): Stable at this time. Continue CPAP and O2 nightly. Assessment & Plan (06/15/2021 5:38 PM EST): Continue CPAP and O2 nightly Assessment & Plan (12/15/2020 11:04 AM EDT): Continue CPAP nightly. Will follow. Assessment & Plan (09/17/2019 5:19 PM EST): Benefiting substantially from CPAP nightly. Continue CPAP nightly as prescribed. Assessment & Plan (03/15/2019 10:46 AM EDT): Stable with CPAP nightly. Assessment & Plan (09/10/2018 5:07 PM EST): Continue CPAP nightly. Will follow. Atrial fibrillation 08/13/2016 Assessment & Plan (03/23/2024 4:45 PM EDT): Remains in sinus rhythm with flecainide. Continue flecainide and metoprolol along with Eliquis twice daily for anticoagulation. Will follow. Assessment & Plan (09/02/2023 4:16 PM EST): In atrial fibrillation today. Rate controlled. Continue metoprolol XL 50mg BID for rate control and f/u with cardiology to discuss rhythm control. Will continue anticoagulation with eliquis 5mg BID. Assessment & Plan (08/29/2022 10:39 AM EST): Doing well with metoprolol for rate control. Continue Eliquis twice daily for anticoagulation. Will follow. Assessment & Plan (01/28/2022 1:46 PM EDT): Rate controlled with metoprolol. Continue current regimen along with Eliquis 5 mg twice daily for anticoagulation. Will follow. Assessment & Plan (10/23/2021 6:33 PM EDT): Rate and rhythm controlled. Continue Toprol and amiodarone. Adequate anticoagulation with Eliquis 5 mg twice daily Assessment & Plan (07/22/2021 10:10 PM EST): Clinically stable. continue metoprolol and amiodarone. Adequate anticoagulation with elqiuis BID. Will follow. Assessment & Plan (06/15/2021 5:32 PM EST): Rate and rhythm controlled with amiodarone and metoprolol. Discussed repeating TSH with Free T4 to determine need for treatment. Will continue eliquis BID for anticoagulation and follow closely. Assessment & Plan (12/15/2020 10:57 AM EDT): Clinically stable. AICD has improved the patients stability greatly. Continue metoprolol daily with eliquis BID for anticoagulation Assessment & Plan (02/15/2020 10:57 AM EDT): Controlled post ablation. In normal sinus rhythm today. Taking amiodarone as prescribed by cardiology with plan follow-up February 28, 2020. Continue Eliquis 5 mg twice daily for anticoagulation. Assessment & Plan (09/17/2019 5:17 PM EST): Controlled. Continue amiodarone and metoprolol for rate and rhythm controlled. Continue Eliquis for anticoagulation is well-tolerated. Will follow. Assessment & Plan (03/15/2019 10:45 AM EDT): Controlled. Finishing amiodarone over the next month or so per cardiology. Continue metoprolol for rate control. Continue Eliquis BID for anticoagulation. Assessment & Plan (09/10/2018 5:03 PM EST): Controlled. Continue amiodarone and metoprolol. Reviewed anticoagulation with eliquis. Will follow. Prostate cancer 06/04/2013 Assessment & Plan (08/29/2022 10:44 AM EST): Continue annual surveillance. Clinically stable and asymptomatic Assessment & Plan (01/28/2022 1:49 PM EDT): Continue surveillance PSAs per urology. Will follow. Assessment & Plan (10/23/2021 6:28 PM EDT): Continue regular follow-up with urology. Assessment & Plan (07/22/2021 10:16 PM EST): Continue regular follow up with urology. Assessment & Plan (06/15/2021 5:37 PM EST): undetectable PSA, will follow Assessment & Plan (09/17/2019 5:17 PM EST): PSA stable. Will follow. Assessment & Plan (03/15/2019 10:44 AM EDT): F/U with PSA annually. Assessment & Plan (09/10/2018 5:04 PM EST): Follow PSA annually. Anxiety 05/27/2013 Assessment & Plan (09/02/2023 2:13 PM EST): Will stop trazodone and monitor closely. To call if he is unable to sleep and anxiety increases. If needed we will resume remeron. Assessment & Plan (03/03/2023 8:46 AM EDT): Stable. Continue trazodone nightly. Will follow Assessment & Plan (08/29/2022 10:37 AM EST): Doing well with trazodone nightly. Continue current regimen. Assessment & Plan (01/28/2022 1:45 PM EDT): Clinically stable and well-controlled. Continue trazodone nightly for sleep. Will follow. Assessment & Plan (07/22/2021 10:08 PM EST): Stable at this time. Continue remeron and trazodone. Will follow. Assessment & Plan (06/15/2021 5:31 PM EST): Requesting refill of remeron Assessment & Plan (12/15/2020 10:50 AM EDT): Stable. Continue remeron and trazodone. Will follow. Assessment & Plan (09/17/2019 5:18 PM EST): Stable with Remeron nightly. Will follow. Assessment & Plan (03/15/2019 10:47 AM EDT): Stable with current regimen. Will follow Assessment & Plan (09/10/2018 5:05 PM EST): Stable. Continue remeron nightly. HTN (hypertension) 05/27/2013 Assessment & Plan (03/23/2024 4:42 PM EDT): Controlled. Continue spironolactone 25 mg daily Entresto 24/26 mg twice daily Toprol 100 mg twice daily and Lasix 40-minute milligrams daily. Reviewed goals. Will follow. Assessment & Plan (09/02/2023 4:20 PM EST): Controlled without sxs of hypotension. Continue metoprolol, enstresto, lasix and spironolactone. Will follow Assessment & Plan (01/28/2022 1:47 PM EDT): Stable. Continue Toprol, losartan, Lasix, and spironolactone. Assessment & Plan (10/23/2021 6:32 PM EDT): Blood pressures on the low side however well-tolerated. Continue Toprol, Lasix, ramipril, and spironolactone. Intermittent dry cough with ramipril. Cardiology aware. Assessment & Plan (07/22/2021 10:12 PM EST): Controlled. Cardiology OV scheduled in 2 days. Discussed my preference to change from ramipril due to cough however I will defer to the cardiologists judgement at this time in the face of declining EF. Will follow. Assessment & Plan (06/15/2021 5:37 PM EST): Controlled. continue metoprolol, ramipril, lasix and spironolactone. Will follow Assessment & Plan (12/15/2020 11:02 AM EDT): Controlled. Continue metoprolol, losartan and spironolactone. Will follow. Assessment & Plan (09/17/2019 5:17 PM EST): Controlled. Continue Toprol, losartan, and Spironolactone. [facility]. Assessment & Plan (03/15/2019 10:45 AM EDT): Stable with toprol, losartan, and spironolactone. Will continue current regimen. Reviewed BP goals. Will follow. Assessment & Plan (09/10/2018 5:04 PM EST): Controlled. Continue toprol, losartan and spironolactone. Will follow Major depressive disorder wi th single episode, in partial remission 05/27/2013 Assessment & Plan (03/23/2024 4:40 PM EDT): Since stopping trazodone. Will continue to monitor clinically. Assessment & Plan (09/02/2023 4:22 PM EST): Stable. He thinks he might not need the trazodone, will DC and monitor closely. Will follow Assessment & Plan (03/03/2023 8:49 AM EDT): clinically stable. Continue trazodone nightly. Will follow. Assessment & Plan (08/29/2022 10:41 AM EST): Clinically stable. Continue trazodone nightly. Assessment & Plan (01/28/2022 1:47 PM EDT): Stable with trazodone nightly Assessment & Plan (10/23/2021 6:31 PM EDT): Mood fairly stable at this time. Continue trazodone nightly. Assessment & Plan (07/22/2021 10:14 PM EST): Stable at this time. Continue remeron and trazodone. Will follow. Assessment & Plan (06/15/2021 5:34 PM EST): Refilled remeron. Continue trazodone and remeron. Will follow Assessment & Plan (12/15/2020 10:59 AM EDT): Stable with remeron and trazodone. Will follow. Assessment & Plan (02/15/2020 10:56 AM EDT): Continue 30 milligrams mirtazapine at night. Discussed waiting on increasing trazodone while on amiodarone due to risk of QT prolongation. Assessment & Plan (09/17/2019 5:17 PM EST): Clinically stable at this time with Remeron nightly. We will continue to monitor closely. Assessment & Plan (03/15/2019 10:44 AM EDT): Stable with remeron. Continue current regimen. Will follow Assessment & Plan (09/10/2018 5:04 PM EST): Continue remeron. Mood stable. Will follow. GERD (gastroesophageal reflux disease) 3 Assessment & Plan (03/23/2024 4:43 PM EDT): Controlled with Prevacid daily. Will follow. Assessment & Plan (09/02/2023 4:19 PM EST): Controlled with prevacid Assessment & Plan (03/03/2023 8:50 AM EDT): Well controlled. Taking prevacid. Will follow. Assessment & Plan (07/22/2021 10:14 PM EST): Continue prevacid 15mg daily Assessment & Plan (12/15/2020 11:00 AM EDT): Stable and controlled with omeprazole prn Assessment & Plan (09/17/2019 5:18 PM EST): Stable. Advised trigger avoidance. Continue as needed use of omeprazole. Assessment & Plan (03/15/2019 10:46 AM EDT): Controlled. Continue omeprazole prn Assessment & Plan (09/10/2018 5:06 PM EST): Controlled. Will continue prilosec prn only. Other hyperlipidemia 05/27/2013 Assessment & Plan (03/23/2024 4:39 PM EDT): LDL is not at goal. Creastor increased by cardiology, continue crestor 20mg daily and follow up with labs to monitor response.. Assessment & Plan (09/02/2023 4:24 PM EST): Stable with crestor daily Assessment & Plan (03/03/2023 8:48 AM EDT): Controlled. Continue toprol, losartan, lasix and spironolactone Assessment & Plan (08/29/2022 10:44 AM EST): We will continue to avoid statin therapy at this time. LFTs now stable. Will follow. Assessment & Plan (01/28/2022 1:48 PM EDT): Continue atorvastatin 40 mg daily. Will follow. Assessment & Plan (10/23/2021 6:26 PM EDT): Remains off atorvastatin. We will recheck labs prior to follow-up to reassess need for statin therapy. Assessment & Plan (07/22/2021 10:15 PM EST): Continue atorvastatin and f/u with labs to monitor. Assessment & Plan (06/15/2021 5:38 PM EST): Discussed resuming statin with neurology and cardiology. LFTs stable and clear to resume from my standpoint. Assessment & Plan (12/15/2020 11:04 AM EDT): Stable. Continue atorvastatin daily. Will follow. Assessment & Plan (09/17/2019 5:18 PM EST): Continue atorvastatin and [facility] The patient will provide us with a copy of his labs thereafter. Will follow. Assessment & Plan (03/15/2019 10:44 AM EDT): Continue atorvastatin daily. Will follow. Assessment & Plan (09/10/2018 5:05 PM EST): Controlled. Continue atorvastatin. Will follow Insomnia 05/27/2013 Assessment & Plan (03/23/2024 4:40 PM EDT): Sleeping well with melatonin at this time. Continue current regimen. Assessment & Plan (09/02/2023 4:21 PM EST): Stop trazodone and monitor need for a replacement medication. In the meantime may use malatonin prn. Will follow Assessment & Plan (03/03/2023 8:50 AM EDT): Stable. cotinue trazodone nightly. Assessment & Plan (08/29/2022 10:41 AM EST): Stable now with trazodone. Assessment & Plan (01/28/2022 1:48 PM EDT): Sleeping well with trazodone nightly. Will follow. Assessment & Plan (10/23/2021 6:30 PM EDT): Sleeping fair with melatonin and trazodone. Will follow. Assessment & Plan (07/22/2021 10:15 PM EST): Continue remeron and trazodone nightly. Will follow. Assessment & Plan (06/15/2021 5:37 PM EST): Stable w ith remeron and trazodone, continue current regimen Assessment & Plan (12/15/2020 11:03 AM EDT): Sleep improved. continue remeron and trazodone. Will follow Assessment & Plan (05/03/2020 2:32 PM EDT): Uncontrolled since changing to trazodone from a low dose of Ambien. Will send in Ambien and DC trazodone. Assessment & Plan (02/15/2020 10:58 AM EDT): Secondary to related PTSD. Continue mirtazapine 30 mg daily with trazodone 50 mg daily. We will follow-up in March for Medicare wellness and discuss any increase in trazodone at that time. If he remains on amiodarone we will continue the current regimen due to risk of QT prolongation and arrhythmia. Assessment & Plan (09/17/2019 5:19 PM EST): Controlled with Remeron and Ambien nightly. No evidence of adverse reaction. The patient and his are aware of potential adverse effects. Will follow. Assessment & Plan (03/15/2019 10:46 AM EDT): Continue remeron and ambien. Will follow. Assessment & Plan (09/10/2018 5:06 PM EST): Continue remeron and ambien nightly. documented as of this encounter (statuses as of 03/23/2024) Resolved Problems Problem Noted Date Diagnosed Date Resolved Date Macrocytic anemia 01/28/2022 03/03/2023 Assessment & Plan (01/28/2022 1:50 PM EDT): Obtain B12 and folate levels Critical illness polyneuropathy 06/15/2021 10/23/2021 Assessment & Plan (07/22/2021 10:19 PM EST): Improving slowly. More tolerable with gabapentin. Will follow. Retention of urine 03/29/2021 Assessment & Plan (06/15/2021 5:39 PM EST): Resolved, no longer needing to self catheterize Physical deconditioning 09/28/201910/03 Assessment & Plan (07/22/2021 10:18 PM EST): Continue PT, improving. Will follow. Assessment & Plan (06/15/2021 5:38 PM EST): Continue PT/OT. Only able to ambulate with parallel bars and assistance. AICD discharge 09/28/2019 12/15/2020 Ventricular tachyarrhythmia 09/28/2019 10/23/2021 Abnormal blood sugar 09/10/2018 022 Assessment & Plan (12/15/2020 10:48 AM EDT): Follow up with A1C to monitor for progression to DM. Assessment & Plan (03/15/2019 10:48 AM EDT): [facility]. Encouraged healthy diet and regular exercise. Assessment & Plan (09/10/2018 5:05 PM EST): Will follow A1C. documented as of this encounter (statuses as of 03/23/2024) Immunizations Name Administration Dates Next Due DPT 08/09/2005, 5,02/15/1992,1990,12/11/1990,10/12/1990 HIB 12/03/1991,03/04/1991,10/12/1990 Hepatitis B 04/06/1999,11/02/1998,10/02/1998 High Dose Influenza 04/28/2017 Influenza 04/22/2016, 5,05/25/2014,2012,05/26/2012,05/17/2011,05/04/2010,1 09/04/2007,05/04/2007,06/04/2005, 003,06/04/2002 Influenza (Flublok) 05/03/2020,09/27/2019,2018 MMR 09/02/1994,12/03/1991 Pneumococcal PCV-13 02/20/2015 Pneumococcal PPSV 23 08/04/2009 Polio Vaccine (OPV) 09/02/1994, 2,12/11/1990,1990 SARS-CoV-2 (Purple Cap, With Diluent) Pfizer 09/29/2020,08/05/2020 Tdap 12/14/2011 Varicella 03/24/2001 documented as of this encounter Social History Tobacco Use Types Packs/Day Years Used Date Smoking Tobacco: Never Smokeless Tobacco: Never Alcohol Use Standard Drinks/Week Comments No 0 (1 standard drink = 0.6 oz pur e alcohol) [facility] - Occupational Stress Questionnaire Answer Date Recorded Do you feel stress - tense, restless, nervous, or anxious, or unable to sleep at night because your mind is troubled all the time - these days? Only a little 12/11/2020 Exercise Vital Sign Answer Date Recorde d On average, how many days pe r week do you engage in moderate to strenuous exercise (like a brisk walk)? Patient declined On average, how many minutes do you engage in exercise at this level? Patient declined 12/11/2020 Depression Answer Date Recorded PHQ-2 Screening Result Negative PHQ Result Negative 09/02/2023 Sex and Gender Information Value Date Recorded Sex Assigned at Not on file Gender Identity Not on file Sexual Orientation Not on file documented as of this encounter Last Filed Vital Signs Vital Sign Reading Time Taken Comments Blood Pressure 118/68 03/22/2024 11:41 AM EDT Pulse 61 03/22/2024 11:41 AM EDT Temperature 36.7 C (98 F) 03/22/2024 11:41 AM EDT Respiratory Rate 20 03/22/2024 11:41 AM EDT Oxygen Saturation 96% 03/22/2024 11:41 AM EDT Inhaled Oxygen Concentration - - Weight 107 kg (236 lb) 03/22/2024 11:41 AM EDT Height 182.9 cm (6') 03/22/2024 11:41 AM EDT Body Mass Index 32.01 03/22/2024 11:41 AM EDT documented in this encounter Progress Notes * Raquel Reich, DO - 03/22/2024 10:40 AM EDT Subjective CC: MWE HPI: Patient Active Problem List Diagnosis Anxiety: Hx PTSD and anxiety with nightmares. The patient reports his symptoms are fairly stable atthis time despite stopping trazodone nightly Atrial fibrillation (HCC): followed by cardiology, going in and out of atrial fibrillation. AICD fired prior to his admission to [facility] with sepsis and [place]. cardioverted 11/28/22. Denies BONILLA, vision change, CP, SOB, lightheadedness or dizziness. Had an echo this am. Tolerating metoprolol for rate control with eliquis 5mg BID for anticoagulation. Denies excessive bleeding or bruising. Hypertension: BP stable. Tolerating toprol, Entresto, Lasix, and spironolactone. Reports developinga cough on ramipril. 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 EF improved when the patient was in sinus rhythm. Recently resumed flecanide and back in sinus rhythm Major depressive disorder with single episode, in partial remission (HCC): fairly stable at this time. Trazodone Dc'd due to risk of QT prolongation. Weight stable. Denies anxiety, guilt or anhedonia. Sleep fairly stable with melatonin. The medication has helped however still has a hard time "letting things go". Has meetings with his veterans friends which helps. Gastroesophageal reflux disease:denies persistent reflux with prevacid Other hyperlipidemia: tolerating crestor well without myalgias. LFTs stable. LDL elevated. Recentlyincreased to crestor 20mg daily by cardiology. Insomnia: taking melatonin. Improved sleep latency. Sleeping through the night. Once asleep will sleep well, waking feeling rested.. Obstructive sleep apnea of adult: Wearing CPAP and O2 nightly since discharge. Reports restorative sleep. Denies daytime somnolence. Malignant neoplasm of prostate (HCC): Surveillance PSA's per urology and to f/u if elevated. Asymptomatic. non detectable PSA and no evidence of prostate cancer since 2013. Hx of ventricular tachycardia AICD (automatic cardioverter/defibrillator) present Seborrheic keratoses Guillain Lowery syndrome (HCC): Will have LE burning at night. Using lidocaine topically with gabapentin and tylenol pm. Taking gabapentin 300mg TID with some improvement. Urinating on his own now. Reports some burning in his feet and persistnet numbness from the arch to the toes. Burning from around 7pm at night for 2 hours. Topical treatment and gabapentin at bed time helps. Critical illness polyneuropathy (HCC) Hyperthyroidism: seeing endocrinology and was taking 30mg methimazole. Gradual improvement in TFTs noted. [place] physician decreased methimazole after seeing labs and reduced methimazole to 5mg daily [facility] and [facility] 03/10/24: WBC 7.7, hgb 14.1, hct 43.3, PLT 255. BUN 22, creat 1.1, Na 140, K 4.8, glucose 99, LFTs WNL, chol 242, HDL 38, LDL 167, TSH 5.10, Free T4 1.0, A1C 6.2. B12 555, vit D 37 Cardiac cath 12/02/23: nonobstructive coronary disease with moderate stenosis in LAD/diagonal bifurcation. Decided on optimizing medical therapy. Scheduled for left knee exploration and polyexchange of left total knee replacement by Dr. Horne 03/26/24. Review of Data: I reviewed and updated the Problem List, Past Medical History, Past Surgical History, Family History, Smoking and Alcohol History murphy and Immunizations in the eRecord. Health Maintenance, which isthe 5 to 10 year Prevention Plan, was reviewed and updated. Race and ethnicity can be found in the demographic section of the electronic health record. Diagnoses that correspond to Risk Factors (such as diabetes, hypertension, etc) are noted in the Problem List. Past Medical History and Family History include diagnoses of depression and other mental illness, if applicable. Interventions for thoserisk factors as needed and for preventative services that are due are noted in the Assessment and Plan section below. The office routinely provides information to patients on how to obtain those services not provided here. I reviewed the list of Providers of Care and Equipment entered on the Annual Wellness Visit PatientSelf-Assessment Form: To be scanned into the chart in [employer]. Review of Systems Risk Screening: I have reviewed the depression, safety (including fall risk), and functional assessments as completed by the patient on the Patient Self-Assessment Form. The questionnaire was completed electronically either on [facility] (Patient Portal) or in the office, it has been reviewed, and is viewable in the Encounter Report. Fall Risk Screening: Patient was given a fall risk assessment. No history of falls or 1 fall without injury in past year. No plan of care required. Urinary Incontinence Assessment/Plan of Care: none Current Outpatient Prescriptions Medication Sig amoxicillin (AMOXIL) 500 mg oral capsule Take 4 caps PO 1 hour prior to dental appointment. apixaban (ELIQUIS) 5 mg oral tablet Take 1 tablet by mouth 2 times a day cyanocobalamin (VITAMIN B-12) 500 mcg oral tablet Take 500 micrograms by mouth flecainide (TAMBOCOR) 100 mg oral tablet Take 1 tablet by mouth every 12 hours furosemide (LASIX) 40 mg oral tablet Take 40 mg by mouth daily furosemide (LASIX) 40 mg oral tablet Take 1 tablet by mouth daily gabapentin (NEURONTIN) 300 mg oral capsule Take 1 capsule by mouth 3 times a day TO START with 1 capsule at night time and increase 1 capsule weekly (Patient taking differently: Take 300 mg by mouth 3 times a day TO START with 1 capsule at night time and increase 1 capsule weekly Pt takes 1 capsule in AM and 2 at HS) lansoprazole (PREVACID) 15 mg oral delayed-release capsule Take 30 mg by mouth daily latanoprost (XALATAN) 0.005 % ophthalmic drops Apply 1 drop to eye nightly lidocaine-prilocaine (EMLA) 2.5-2.5 % topical cream Apply small amount to painful area daily melatonin 3 mg oral capsule Take 9 mg by mouth at bedtime methIMAzole (TAPAZOLE) 10 mg oral tablet Take 0.5 tablets by mouth daily metoprolol succinate (TOPROL XL) 100 mg oral extended-release tablet 100 mg twice a day multivitamin (DAILY VITAMIN) oral tablet Take 1 tablet by mouth daily nystatin (MYCOSTATIN) 100,000 unit/gram topical cream rosuvastatin (CRESTOR) 20 mg oral tablet Take 1 tablet by mouth daily sacubitriL-valsartan (ENTRESTO) 24-26 mg oral tablet Take 1 tablet by mouth 2 times a day spironolactone (ALDACTONE) 25 mg oral tablet Take 1 tablet by mouth daily Allergies Allergen Reactions Ciprofloxacin Nausea Sertraline Sertraline Hcl Other reaction(s): Irritability Past Medical History Past Medical History: Diagnosis Date Acute CHF (congestive heart failure) (HCC) Acute hypoxemic respiratory failure (HCC) 05/31/2021 Benign prostatic hyperplasia Cardiac dysrhythmia Atrial fibrillation s/p cardioversion 09/26/2016 Critical illness polyneuropathy (HCC) 06/15/2021 DJD (degenerative joint disease) Hyperthyroidism 03/03/2023 Macrocytic anemia 01/28/2022 Prostate cancer (HCC) Retention of urine 03/29/2021 Sleep apnea 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, EF improved to 50-55% in 2018 V-tach (Notable Code) w/o V-fib Ventricular tachyarrhythmia (HCC) 09/28/2019 Past Surgical History Past Surgical History: Procedure Laterality Date CARDIAC DEFIBRILLATOR PLACEMENT COLONOSCOPY FLX DX W-COLLJ SPEC WHEN PFRMD SPX Colonoscopy LAMINECTOMY,LUMBAR LAPARO RADICAL PROSTATECTOMY TOTAL KNEE REPLACEMENT Right TOTAL KNEE REPLACEMENT Left Family History Family History Problem Relation Age of Onset Ca, Skin Melanoma Biological Father Ca, Prostate Brother Multiple Sclerosis Brother Other Brother CABG Heart Disease Brother Other Grandchild Systemic lupus erthematosus Social History Social History Socioeconomic History Marital status: Tobacco Use Smoking status: Never Smokeless tobacco: Never Vaping Use Vaping status: never used Substance and Sexual Activity Alcohol use: No Drug use: No Exam BP 118/68 | Pulse 61 | Temp 98 F (36.7 C) | Resp 20 | Ht 6' (182.9 cm) | Wt 236 lb (107 kg) | SpO2 96% | BMI 32.01 kg/m Constitutional: he is oriented to person, place, and time. he appears well- developed and well-nourished. No acute distress. HENT: Head: Normocephalic and atraumatic. Right Ear: External ear normal. Left Ear: External ear normal. Nose: Nose normal. Mouth/Throat: Oropharynx is clear and moist. No oropharyngeal exudate. Eyes: Conjunctivae and EOM are normal. Pupils are equal, round, and reactive to light. Right eye exhibits no discharge. Left eye exhibits no discharge. Neck: Normal range of motion. Neck supple. No JVD present. No tracheal deviation present. No thyromegaly present. Cardiovascular: Normal rate, regular rhythm and normal heart sounds. Exam reveals no gallop and no friction rub. No murmur heard. Pulmonary/Chest: Breath sounds normal. No stridor. No respiratory distress. he has no wheezes. he has no rales. Abdominal: Bowel sounds are normal. he exhibits no distension. Umbilical hernia easily reduced. There is no tenderness. There is no rebound and no guarding. Musculoskeletal: Normal range of motion. he exhibits no edema and no tenderness. Lymphadenopathy: he has no cervical adenopathy. Neurological: he is alert and oriented to person, place, and time. No cranial nerve deficit. he exhibits normal muscle tone. Coordination normal. Skin: Skin is dry. No rash noted. he is not diaphoretic. No erythema. No pallor. Psychiatric: he has a normal mood and affect. his behavior is normal. Judgment and thought content normal. Assessment/Plan Problem List Items Addressed This Visit Atrial fibrillation (HCC) Remains in sinus rhythm with flecainide. Continue flecainide and metoprolol along with Eliquis twice daily for anticoagulation. Will follow. HTN (hypertension) Controlled. Continue spironolactone 25 mg daily Entresto 24/26 mg twice daily Toprol 100 mg twice daily and Lasix 40-minute milligrams daily. Reviewed goals. Will follow. Cardiomyopathy (HCC) Ejection fraction improved on current therapy and with maintenance of sinus rhythm. Continue flecainide, Toprol, Entresto, Lasix and spironolactone. Has regular follow-up with cardiology. Asymptomatic at this time. Major depressive disorder with single episode, in partial remission (HCC) Since stopping trazodone. Will continue to monitor clinically. GERD (gastroesophageal reflux disease) Controlled with Prevacid daily. Will follow. Other hyperlipidemia LDL is not at goal. Creastor increased by cardiology, continue crestor 20mg daily and follow up with labs to monitor response.. Insomnia Sleeping well with melatonin at this time. Continue current regimen. Obstructive sleep apnea of adult Stable with CPAP nightly with improvement in sleep quality and daytime wakefullness Encounter for general adult medical examination with abnormal findings - Primary GHM reviewed including healthy diet, exercise and weight management. Continue regular dental and eye exams. [facility]. Reviewed immunization recommendations. F/U 1 year CPX. Hx of ventricular tachycardia Stable with improvement in ejection fraction while in sinus rhythm. Continue flecainide. Will follow. Critical illness polyneuropathy (HCC) Persistent neuropathy in bilateral lower extremities. Continue gabapentin 3 times daily. Will follow. Hyperthyroidism Will recommend repeating TSH and free T4 in 6 to 8 weeks. Continue methimazole 5 mg daily in the interim Relevant Orders DXA AXIAL SKELETON 1 OR MORE SITES - SCREENING VITAMIN D, 25-HYDROXY, TOTAL Preoperative clearance Pt is medically stable for planned procedure per AHA Guidelines. This is a non- emergent, intermediate risk surgery. Patient has no signs or symptoms of active angina or heart failure. He is tolerating medical therapy well. Their clinical risk factors (listed above) are stable. No follow-ups on file. documented in this encounter Miscellaneous Notes * Assessment & Plan Note - Raquel Reich DO - 03/23/2024 4:45 PM EDT Associated Problem(s): Atrial fibrillation (HCC) Remains in sinus rhythm with flecainide. Continue flecainide and metoprolol along with Eliquis twice daily for anticoagulation. Will follow. * Assessment & Plan Note - Raquel Reich DO - 03/23/2024 4:44 PM EDT Associated Problem(s): Cardiomyopathy (HCC) Ejection fraction improved on current therapy and with maintenance of sinus rhythm. Continue flecainide, Toprol, Entresto, Lasix and spironolactone. Has regular follow-up with cardiology. Asymptomatic at this time. * Assessment & Plan Note - Raquel Reich DO - 03/23/2024 4:43 PM EDT Associated Problem(s): Critical illness polyneuropathy (HCC) Persistent neuropathy in bilateral lower extremities. Continue gabapentin 3 times daily. Will follow. * Assessment & Plan Note - Raquel Reich DO - 03/23/2024 4:43 PM EDT Associated Problem(s): Encounter for general adult medical examination with abnormal findings GHM reviewed including healthy diet, exercise and weight management. Continue regular dental and eye exams. [facility]. Reviewed immunization recommendations. F/U 1 year CPX. * Assessment & Plan Note - Raquel Reich DO - 03/23/2024 4:43 PM EDT Associated Problem(s): GERD (gastroesophageal reflux disease) Controlled with Prevacid daily. Will follow. * Assessment & Plan Note - Raquel Reich DO - 03/23/2024 4:42 PM EDT Associated Problem(s): HTN (hypertension) Controlled. Continue spironolactone 25 mg daily Entresto 24/26 mg twice daily Toprol 100 mg twice daily and Lasix 40-minute milligrams daily. Reviewed goals. Will follow. * Assessment & Plan Note - Raqeul Reich DO - 03/23/2024 4:41 PM EDT Associated Problem(s): Hx of ventricular tachycardia Stable with improvement in ejection fraction while in sinus rhythm. Continue flecainide. Will follow. * Assessment & Plan Note - Raquel Reich DO - 03/23/2024 4:41 PM EDT Associated Problem(s): Hyperthyroidism Will recommend repeating TSH and free T4 in 6 to 8 weeks. Continue methimazole 5 mg daily in the interim * Assessment & Plan Note - Raquel Reich DO - 03/23/2024 4:40 PM EDT Associated Problem(s): Insomnia Sleeping well with melatonin at this time. Continue current regimen. * Assessment & Plan Note - Raquel Reich DO - 03/23/2024 4:40 PM EDT Associated Problem(s): Major depressive disorder with single episode, in partial remission (HCC) Since stopping trazodone. Will continue to monitor clinically. * Assessment & Plan Note - Raquel Reich DO - 03/23/2024 4:40 PM EDT Associated Problem(s): Obstructive sleep apnea of adult Stable with CPAP nightly with improvement in sleep quality and daytime wakefullness * Assessment & Plan Note - Raquel Reich DO - 03/23/2024 4:39 PM EDT Associated Problem(s): Other hyperlipidemia LDL is not at goal. Creastor increased by cardiology, continue crestor 20mg daily and follow up with labs to monitor response.. * Assessment & Plan Note - Raquel Reich DO - 03/23/2024 2:09 PM EDT Associated Problem(s): Preoperative clearance Pt is medically stable for planned procedure per AHA Guidelines. This is a non- emergent, intermediate risk surgery. Patient has no signs or symptoms of active angina or heart failure. He is tolerating medical therapy well. Their clinical risk factors (listed above) are stable. documented in this encounter Plan of Treatment Scheduled Orders Name Type Priority Associated Diagnoses Orde r Schedule DXA AXIAL SKELETON 1 OR MORE SITES - SCREENING Imaging Routine Hyperthyroidism 1 Occurrences starting 03/22/2024 until 03/22/2025 VITAMIN D, 25-HYDROXY, TOTAL Lab Routine Hyperthyroidism 1 Occurrences starting 03/22/2024 until 03/22/2025 Health Maintenance Due Date Last Done Comments Cologuard 1944 Fecal Occult Blood Testing 1944 Billable Depression Screen 03/03/202403/03, 01/28/2022, 01/08/2021 Colonoscopy 04/16/2024 04/16/2023, 04/04, 08/09/2022, Additional history exists Colorectal Cancer Screening 04/16/2024 Creatinine Serum 11/23/2024 11/24/2023, 05/2023, 12/18/2022, Additional history exists Potassium 11/23/2024 11/24/2023, 02/01, 12/18/2022, Additional history exists Advance Directives 03/22/2025 12/16/2022, 1 , 01/28/2022, Additional history exists Postponed from 12/17/2023 (Recommended) COVID-19 Vaccine (3 - Pfizer risk series) 03/22/2025 09/29/2020, 08/05/2020 Postponed from 10/27/2020 (Recommended Yet Declined) DTaP/Tdap/Td Vaccine (8 - Td or Tdap) 03/22/2025 12/14/2011, 08/09/2005, 09/02/1994, Additional history exists Postponed from 12/13/2021 (Recommended Yet Declined) Medicare Annual Wellness Visit 03/22/2025 03/22/2024, 03/22/2024, 03/03/2023, Additional history exists Shingles Vaccine (Recombinant) (1 of 2) 03/22/2025 Postponed from 05/19/2001 (Recommended) PSA Screening 11/23/2025 11/24/2023, 04/0 01/2023, 04/10/2022, Additional history exists Sigmoidoscopy 04/16/2028 04/16/2023, 04/04, 08/09/2022 Vision Exam 08/15/2028 08/15/2023, 03/15/2019 Cholesterol Screening 11/23/2028 11/24/2023 , 02/10/2023, 01/22/2022, Additional history exists Colorectal Cancer Screening Discussion 04/16/2033 04/16/2023, 04/15/2023, 08/09/2022, Additional history exists Hepatitis B Vaccine Completed 04/06/1999, 11/02/1998, 10/02/1998 Pneumococcal Vaccine Completed 02/20/2015, 08/04/19 10 Hearing Screening Discontinued 03/15/2019 Flu Vaccine Discontinued 05/03/2020, 09/05, 09/10/2018, Additional history exists Hepatitis C Screen Discontinued 06/04/2022, 04/13/2022 Depression Screening Completed 09/02/2023, 03/03/20 23 Full Body Skin Exam Discontinued documented as of this encounter Visit Diagnoses Diagnosis Paroxysmal atrial fibrillation (HCC)- Primary Atrial fibrillation Need for prophylactic vaccination and inoculation against influenza Abnormal blood sugar Other abnormal glucose Benign hypertension Essential hypertension, benign Malignant neoplasm of prostate (HCC) Malignant neoplasm of prostate Other hyperlipidemia Recurrent major depressive disorder, in full remission (HCC) Anxiety Anxiety state, unspecified Other cardiomyopathy (HCC) Gastroesophageal reflux disease without esophagitis Esophageal reflux Other insomnia Obstructive sleep apnea of adult Obstructive sleep apnea (adult) (pediatric) Encounter for general adult medical examination with abnormal findings- Primary Unspecified general medical examination Other hyperlipidemia Malignant neoplasm of prostate (HCC) Malignant neoplasm of prostate Recurrent major depressive disorder, in full remission (HCC) Benign hypertension Essential hypertension, benign Paroxysmal atrial fibrillation (HCC) Atrial fibrillation Obstructive sleep apnea of adult Obstructive sleep apnea (adult) (pediatric) Other insomnia Gastroesophageal reflux disease without esophagitis Esophageal reflux Other cardiomyopathy (HCC) Anxiety Anxiety state, unspecified Abnormal blood sugar Other abnormal glucose Actinic keratosis Paroxysmal atrial fibrillation (HCC)- Primary Atrial fibrillation Benign hypertension Essential hypertension, benign Recurrent major depressive disorder, in full remission (HCC) Malignant neoplasm of prostate (HCC) Malignant neoplasm of prostate Other hyperlipidemia Abnormal blood sugar Other abnormal glucose Anxiety Anxiety state, unspecified Other cardiomyopathy (HCC) Gastroesophageal reflux disease without esophagitis Esophageal reflux Other insomnia Obstructive sleep apnea of adult Obstructive sleep apnea (adult) (pediatric) Recurrent major depressive disorder, in full remission (HCC) Paroxysmal atrial fibrillation (HCC) Atrial fibrillation Other insomnia AICD (automatic cardioverter/defibrillator) present- Primary Automatic implantable cardiac defibrillator in situ Encounter for general adult medical examination with abnormal findings- Primary Unspecified general medical examination Need for prophylactic vaccination and inoculation against influenza Other seborrheic keratosis Other hyperlipidemia Benign hypertension Essential hypertension, benign Paroxysmal atrial fibrillation (HCC) Atrial fibrillation Screening for prostate cancer Special screening for malignant neoplasm of prostate Other insomnia Seborrheic keratoses Encounter for colonoscopy due to history of adenomatous colonic polyps- Primary Special screening for malignant neoplasms, colon Paroxysmal atrial fibrillation (HCC) Atrial fibrillation Other cardiomyopathy (HCC) Abnormal blood sugar Other abnormal glucose Recurrent major depressive disorder, in full remission (HCC) Gastroesophageal reflux disease without esophagitis Esophageal reflux AICD (automatic cardioverter/defibrillator) present Automatic implantable cardiac defibrillator in situ Hx of ventricular tachycardia Personal history of other diseases of circulatory system Essential hypertension Unspecified essential hypertension Other insomnia Malignant neoplasm of prostate (HCC) Malignant neoplasm of prostate Obstructive sleep apnea of adult Obstructive sleep apnea (adult) (pediatric) Other hyperlipidemia Seborrheic keratoses Anxiety Anxiety state, unspecified Guillain Lowery syndrome (HCC)- Primary Acute hypoxemic respiratory failure (HCC) AICD (automatic cardioverter/defibrillator) present Automatic implantable cardiac defibrillator in situ Anxiety Anxiety state, unspecified Paroxysmal atrial fibrillation (HCC) Atrial fibrillation Other cardiomyopathy (HCC) Depression with anxiety Dysthymic disorder Encounter for general adult medical examination with abnormal findings Unspecified general medical examination Hypertension, unspecified type Other insomnia Malignant neoplasm of prostate (HCC) Malignant neoplasm of prostate Obstructive sleep apnea of adult Obstructive sleep apnea (adult) (pediatric) Other hyperlipidemia Physical deconditioning Debility, unspecified Retention of urine Retention of urine, unspecified Paroxysmal atrial fibrillation (HCC)- Primary Atrial fibrillation Anxiety Anxiety state, unspecified Primary hypertension Unspecified essential hypertension Dilated cardiomyopathy (HCC) Other primary cardiomyopathies Depression with anxiety Dysthymic disorder Gastroesophageal reflux disease without esophagitis Esophageal reflux Other hyperlipidemia Other insomnia Obstructive sleep apnea of adult Obstructive sleep apnea (adult) (pediatric) Malignant neoplasm of prostate (HCC) Malignant neoplasm of prostate Physical deconditioning Debility, unspecified Hx of ventricular tachycardia Personal history of other diseases of circulatory system AICD (automatic cardioverter/defibrillator) present Automatic implantable cardiac defibrillator in situ 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) Critical illness polyneuropathy Other hyperlipidemia- Primary Primary hypertension Unspecified essential hypertension Abnormal blood sugar Other abnormal glucose Paroxysmal atrial fibrillation (HCC) Atrial fibrillation Critical illness polyneuropathy (HCC) Critical illness polyneuropathy Seborrheic keratoses Obstructive sleep apnea of adult Obstructive sleep apnea (adult) (pediatric) Malignant neoplasm of prostate (HCC) Malignant neoplasm of prostate Other insomnia Hx of ventricular tachycardia Personal history of other diseases of circulatory system Guillain Lowery syndrome (HCC) Depression with anxiety Dysthymic disorder Dilated cardiomyopathy (HCC) Other primary cardiomyopathies AICD (automatic cardioverter/defibrillator) present Automatic implantable cardiac defibrillator in situ Macrocytic anemia- Primary Unspecified deficiency anemia Anxiety Anxiety state, unspecified Paroxysmal atrial fibrillation (HCC) Atrial fibrillation Primary hypertension Unspecified essential hypertension Dilated cardiomyopathy (HCC) Other primary cardiomyopathies Depression with anxiety Dysthymic disorder Other hyperlipidemia Other insomnia 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) Critical illness polyneuropathy AICD (automatic cardioverter/defibrillator) present Automatic implantable cardiac defibrillator in situ Hx of ventricular tachycardia Personal history of other diseases of circulatory system Screening for prostate cancer Special screening for malignant neoplasm of prostate Obstructive sleep apnea of adult Obstructive sleep apnea (adult) (pediatric) Malignant neoplasm of prostate (HCC) Malignant neoplasm of prostate Other hyperlipidemia- Primary Primary hypertension Unspecified essential hypertension Dilated cardiomyopathy (HCC) Other primary cardiomyopathies Paroxysmal atrial fibrillation (HCC) Atrial fibrillation Anxiety Anxiety state, unspecified Major depressive disorder with single episode, in partial remission (HCC) Other insomnia Malignant neoplasm of prostate (HCC) Malignant neoplasm of prostate Obstructive sleep apnea of adult Obstructive sleep apnea (adult) (pediatric) Neoplasm of uncertain behavior of skin Encounter for general adult medical examination with abnormal findings- Primary Unspecified general medical examination Hyperthyroidism Thyrotoxicosis without mention of goiter or other cause, without mention of thyrotoxic crisis or storm Paroxysmal atrial fibrillation (HCC) Atrial fibrillation Primary hypertension Unspecified essential hypertension Other hyperlipidemia Malignant neoplasm of prostate (HCC) Malignant neoplasm of prostate Anxiety Anxiety state, unspecified Dilated cardiomyopathy (HCC) Other primary cardiomyopathies Major depressive disorder with single episode, in partial remission (HCC) Gastroesophageal reflux disease without esophagitis Esophageal reflux Other insomnia Obstructive sleep apnea of adult Obstructive sleep apnea (adult) (pediatric) AICD (automatic cardioverter/defibrillator) present Automatic implantable cardiac defibrillator in situ 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) Critical illness polyneuropathy Actinic keratosis Other hyperlipidemia- Primary Hyperthyroidism Thyrotoxicosis without mention of goiter or other cause, without mention of thyrotoxic crisis or storm Primary hypertension Unspecified essential hypertension Paroxysmal atrial fibrillation (HCC) Atrial fibrillation Dilated cardiomyopathy (HCC) Other primary cardiomyopathies Anxiety Anxiety state, unspecified AICD (automatic cardioverter/defibrillator) present Automatic implantable cardiac defibrillator in situ Critical illness polyneuropathy (HCC) Critical illness polyneuropathy Gastroesophageal reflux disease without esophagitis Esophageal reflux Other insomnia Major depressive disorder with single episode, in partial remission (HCC) Obstructive sleep apnea of adult Obstructive sleep apnea (adult) (pediatric) Encounter for general adult medical examination with abnormal findings- Primary Unspecified general medical examination Preoperative clearance Preoperative examination, unspecified Hyperthyroidism Thyrotoxicosis without mention of goiter or other cause, without mention of thyrotoxic crisis or storm Other hyperlipidemia Obstructive sleep apnea of adult Obstructive sleep apnea (adult) (pediatric) Major depressive disorder with single episode, in partial remission (HCC) Other insomnia Hx of ventricular tachycardia Personal history of other diseases of circulatory system Primary hypertension Unspecified essential hypertension Gastroesophageal reflux disease without esophagitis Esophageal reflux Critical illness polyneuropathy (HCC) Critical illness polyneuropathy Dilated cardiomyopathy (HCC) Other primary cardiomyopathies Paroxysmal atrial fibrillation (HCC) Atrial fibrillation documented in this encounter Care Teams Recreational Specialist Relationship Specialty Start Date End Date Raquel Reich DO [address] [place] [phone] PCP - General Family Medicine 02/13/18 Durga Singleton MD [address] [place], [place] [address], [place] [phone] Cardiology 01/20/19 Martin Zavaleta MD [address] [place] [address] [address] [place] [address] Cardiology 03/17/19 Raj Deluna MD [address] [place] [address] [place] [address] Electrophysiology 06/02/19 Roque Fierro CRNP [address] [place] [address] [address] [place] [phone] Cardiology 06/03/19 Jose Rainey PA-C [address] [place] [address] [address] [place], [place] [id number] Cardiology 06/23/19 River Hedrick MD [address] [place] [address] Cardiology 10/11/19 Manjinder Cisneros MD [address] [place] [address] Cardiology 11/10/19 Suleman Johnson MD [address] [place] [address] Cardiology 03/02/20 Leoncio Mora MD [address] [place] [address] Electrophysiology 08/08/20 Donte Nowak MD [address] [place] [phone] Gastroenterology 10/12/20 Provider, Generic External Data 12/11/20 Na Deluna MD [address] [facility] [address] [place] [address] Pulmonology 01/19/21 Amalia Monroy DO [address] [facility] [address] [place] [phone] Rheumatology 01/22/21 Ajit Sales MD [address] [facility] [address] [place] [phone] ENT-Otolaryngology 01/25/21 Roxi Chance CRNP [address] [place] [phone] Electrophysiology 03/26/21 Marleni Cardenas PA-C [address] [facility] [address] [place] [phone] Cardiology 05/24/21 Abdifatah Dinh MD [address] [facility] [address] [place] [address] Urology 05/31/21 Leoncio Cavazos, PT [address] FLOOR [facility] [place] [address] Physical Therapy 07/03/21 Gisselle Baer OT [address] [facility] [phone] Occupational Therapy 07/03/21 Durga Mancilla MD [address] [facility] [address] [place], [place] [phone] ENT-Otolaryngology 07/05/21 Christine Chaudhry PTA [address] GROUND FLOOR [place] [address] Physical Therapy 07/06/21 Kalyan Keller COTA [address] [place] [address] Occupational Therapy 07/06/21 Candido Villeda, CINDY [address] [place] [address] Physical Therapy 07/31/21 Kendra Jeff MD [address] [place] [address] Neurology 09/17/21 Leoncio Olivas DPM [address] FLO[address] [place] [address] Podiatric Surgery 09/20/21 Ximena Cortes PA-C [address] [place] [address] Gastroenterology 04/15/22 Kayleigh Hoskins DO [address] [place] [address] Gastroenterology 05/27/22 Ricardo Nguyen MD [facility] [address] [address] Cardiology 11/15/22 Jerad Kelly MD [address] [place] [address] Gastroenterology 04/16/23 Ameya Guardado MD [address] [facility] [address] [place] [address] Ophthalmology 07/08/23 Ze Scherer MD [address] [place] [phone] Neurology 07/22/23 Alcides Serna MD [address] [facility] [address] [place] [phone] Internal Medicine 07/29/23 Seth Guillen MD [address] [place] [address] Cardiology 08/01/23 Roberta Seo CRNP [address] [place] [address] Cardiology 08/06/23 Nurse, Aric Parmar [place] 10/09/23 Marina Montilla MD [address] [place] [address] [place] [address] Cardiology 12/02/23 documented as of this encounter
[2024-03-26] MEDS ORDERED: ePHEDrine sulfate 50 MG/ML AMP IV PRN (10:23)
[2024-03-26] MEDS ORDERED: ONDANSETRON INJ 2 MG/ML 2 ML VIAL IV PRN ×2 (10:23→14:54)
[2024-03-26] MEDS ORDERED: HYDROmorphone INJ 1 MG/ML SYRINGE IV PRN (10:23)
[2024-03-26] MEDS ORDERED: ATROPINE SULFATE 0.1 MG/ML 10ML SYR IV PRN (10:23)
--- NOTE | 2024-03-26 10:28 | Anesthesiology Consultation ---
Date of Service March 26, 2024 Assessment & Plan ASA ASA4 Proposed Anesthesia Anesthesia Type: MAC Spinal Regional Risk / Benefits Reviewed With: PT / POA / Parent / Guardian, Accepts Plan and Informed Consent Obtained History Surgery Operation Date: 03/26/24 10:55 Proposed Procedures p Exploration and Poly Exchange of Left Total Knee Replacement - Braeden Horne MD Height/Weight Height: 6 ft Weight: 107.5 kg Allergies Allergy/AdvReac Type Severity Reaction Status Date / Time sertraline Allergy Intermediate Double Verified 03/26/24 09:41 vision and worsened anxiety ciprofloxacin Allergy Unknown Unknown Verified 03/26/24 09:41 Medications Home Medications Medication Instructions Recorded Confirmed Last Taken acetaminophen 325 mg tablet 650 mg PO Q4 PRN Pain (Scale Score 03/24/21 03/26/24 03/25/24 21:00 1-3) apixaban 5 mg tablet (Eliquis) 5 mg PO BID 03/03/24 03/26/24 03/23/24 cyanocobalamin (vitamin B-12) 1,000 mcg PO QA 03/03/24 03/26/24 03/25/24 08:30 1,000 mcg tablet (Vitamin B-12) furosemide 40 mg tablet (Lasix) 40 mg PO QA 03/03/24 03/26/24 2 Months Ago ~01/25/24 gabapentin 300 mg capsule 300 mg PO [facility] 03/03/24 03/26/24 03/26/24 06:30 gabapentin 300 mg capsule 600 mg PO 03/03/24 03/26/24 03/25/24 21:00 lansoprazole 1 cap PO QA 03/03/24 03/26/24 03/26/24 06:30 latanoprost 0.005 % eye drops 1 drp OPB 03/03/24 03/26/24 03/25/24 21:00 lidocaine HCl 1 % topical gel 1 ea topical 03/03/24 03/26/24 03/24/24 melatonin 3 mg tablet 3 mg PO 03/03/24 03/26/24 03/25/24 21:00 methimazole 10 mg tablet 5 mg PO QA 03/03/24 03/26/24 03/26/24 06:30 metoprolol succinate 50 mg 50 mg PO BID 03/03/24 03/26/24 03/26/24 06:30 tablet,extended release 24 hr multivitamin 1 tab PO QAM 03/03/24 03/26/24 03/25/24 08:30 rosuvastatin 10 mg tablet 10 mg PO HS 03/03/24 03/26/24 03/25/24 21:00 sacubitril 24 mg-valsartan 26 mg 1 tab PO BID 03/03/24 03/26/24 03/25/24 21:00 tablet (Entresto) spironolactone 25 mg tablet 25 mg PO QAM 03/03/24 03/26/24 03/25/24 08:30 trazodone 50 mg tablet 50 mg PO HS 03/03/24 03/26/24 03/25/24 21:00 Active Medications Generic Name Dose Route Start Last Admin Trade Name Freq PRN Reason Stop Dose Admin Lactated Ringer's 1,000 mls @ 60 mls/hr 03/26/24 06:00 03/26/24 09:35 Lr IV 03/26/24 22:39 Not Given .[id number] BI Vancomycin HCl 1,500 mg/ 530 mls @ 200 mls/hr 03/26/24 06:00 03/26/24 09:35 Sodium Chloride IV 03/26/24 18:00 200 mls/hr PREOP BI Administration Lactated Ringer's 1,000 mls @ 15 mls/hr 03/26/24 06:00 03/26/24 09:35 Lr IV 03/26/24 18:00 15 mls/hr .Q24H BI Administration NPO Date Last Intake of Fluids: 03/25/24 Time Last Intake of Fluids: 21:00 Date Last Intake of Solids: 03/25/24 Time Last Intake of Solids: 18:00 Past Medical History Medical History CAD (coronary artery disease) 11/2023: non-obstructive CAD Hyperlipidemia Hypertension Glaucoma Hyperthyroidism Peripheral neuropathy Toes Hx of malignant neoplasm of prostate (2006) GERD (gastroesophageal reflux disease) Congestive heart failure Follows with [facility] 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 device Implanted ~2016 Follows with [facility] PAF (paroxysmal atrial fibrillation) Follows with [facility] History of hypertension Exercise / Class Metabolic Activity II 4-5 Yardwork/Stairs/Walk up hill (one FS: No CP, no SOB) Past Family History Family History Other No family history of adverse response to anesthesia Past Surgical History Surgical History History of cardiac cath 11/2023- non-obstructive CAD, no stents Hx of prostatectomy (2006) History of cataract surgery bilateral History of esophagogastroduodenoscopy (EGD) Hx of gastrostomy with reversal in 2020 H/O toe surgery Right big toe surgery + screw placement Hx of total knee arthroplasty left S/P lumbar laminectomy History of cardiac radiofrequency ablation Early 2023 for A.fib [facility] History of colonoscopy History of automatic internal cardiac defibrillator (AICD) ~2016 History of tracheostomy (2020) + subsequent reversal R/t GBS (trach from 01/2021-02/2021) Past Anesthesia History No Hx of Anesthesia Complications and No Family Hx of Anesthesia Complications History of PONV No Hx of Motion Sickness and History of PONV (Ether (as child)- PONV) Social History Smoking Status: Never smoker Do You Dip or Chew Tobacco: No Hx Alcohol Use: No Hx Substance Use: No Physical Exam Vital Signs Last Vital Signs Temp 36.4 C L 03/26/24 09:15 Pulse 60 03/26/24 09:15 Resp 18 03/26/24 09:15 BP 125/83 03/26/24 09:15 Pulse Ox 99 03/26/24 09:15 O2 Del Method Room Air 03/26/24 09:15 Constitutional no acute distress ENMT Mouth: + dentures (upper ); no dentition abnormality Thyromental Distance: > or= 3.5 Finger Breadths Mallampati Class: II Neck normal visual inspection Respiratory normal respiratory effort; no respiratory distress Auscultation: lungs clear to auscultation bilaterally Cardiovascular Rate/Rhythm: regular rate and regular rhythm Heart Sounds: no murmur Musculoskeletal Spine: normal cervical ROM Psychiatric Orientation: alert and oriented x 3 Testing Electrocardiogram Date: 02/20/24 Atrial-paced rhythm with prolonged AV conduction with PACs at 67bpm. LAD. RBBB. Chest X-Ray Date: 03/03/24 FINDINGS: Left subclavian pacer/AICD. Cardiac silhouette is enlarged. Hyperinflation with diaphragmatic flattening. Chronic interstitial coarsening. Mild right hemidiaphragmatic elevation. No pneumothorax or pleural effusion. Degenerative changes of the shoulders and spine. IMPRESSION: Cardiomegaly without acute process. Echocardiogram Date: 02/10/24 LVEF 20-25%. Severe global like hypokinesis of the left ventricle. No LV regional wall motion abnormality. Normal RV size and systolic function. Stress Test Date: 08/21/23 Myocardial perfusion appears normal following adequate stress. No reversible or fixed ischemia seen. LVEF 41% at rest, 27% post-stress. Stress test report/findings scanned under 02/20/24 cardiology document in [email or web address]* Cardiac Catheterization Date: 12/02/23 RCA has ostial 30-40% stenosis with no dampening on engagement. The remainder of vessel is free of disease. Left main normal. LAD with 50% proximal stenosis at the bifurcation of a diagonal that has a 60-70% smooth stenosis. The remainder of the vessels are free of significant disease. Conclusion: Nonobstructive coronary disease in a right dominant system with moderate stenosis in the LAD/diagonal bifurcation. Cardiac cath report/findings scanned under 02/20/24 cardiology document in [email or web address]* Day of Procedure Evaluation. Date of Surgery March 26, 2024 Height/Weight Height: 6 ft Weight: 107.5 kg Vital Signs Last Vital Signs Temp 36.4 C L 03/26/24 09:15 Pulse 60 03/26/24 09:15 Resp 18 03/26/24 09:15 BP 125/83 03/26/24 09:15 Pulse Ox 99 03/26/24 09:15 O2 Del Method Room Air 03/26/24 09:15 Allergies Allergy/AdvReac Type Severity Reaction Status Date / Time sertraline Allergy Intermediate Double Verified 03/26/24 09:41 vision and worsened anxiety ciprofloxacin Allergy Unknown Unknown Verified 03/26/24 09:41 Medications Home Medications Medication Instructions Recorded Confirmed Last Taken acetaminophen 325 mg tablet 650 mg PO Q4 PRN Pain (Scale Score 03/24/21 03/26/24 03/25/24 21:00 1-3) apixaban 5 mg tablet (Eliquis) 5 mg PO BID 03/03/24 03/26/24 03/23/24 cyanocobalamin (vitamin B-12) 1,000 mcg PO [facility] 03/03/24 03/26/24 03/25/24 08:30 1,000 mcg tablet (Vitamin B-12) furosemide 40 mg tablet (Lasix) 40 mg PO QA 03/03/24 03/26/24 2 Months Ago ~01/25/24 gabapentin 300 mg capsule 300 mg PO [facility] 03/03/24 03/26/24 03/26/24 06:30 gabapentin 300 mg capsule 600 mg PO 03/03/24 03/26/24 03/25/24 21:00 lansoprazole 1 cap PO [facility] 03/03/24 03/26/24 03/26/24 06:30 latanoprost 0.005 % eye drops 1 drp OPB 03/03/24 03/26/24 03/25/24 21:00 lidocaine HCl 1 % topical gel 1 ea topical 03/03/24 03/26/24 03/24/24 melatonin 3 mg tablet 3 mg PO 03/03/24 03/26/24 03/25/24 21:00 methimazole 10 mg tablet 5 mg PO [facility] 03/03/24 03/26/24 03/26/24 06:30 metoprolol succinate 50 mg 50 mg PO BID 03/03/24 03/26/24 03/26/24 06:30 tablet,extended release 24 hr multivitamin 1 tab PO QA 03/03/24 03/26/24 03/25/24 08:30 rosuvastatin 10 mg tablet 10 mg PO 03/03/24 03/26/24 03/25/24 21:00 sacubitril 24 mg-valsartan 26 mg 1 tab PO BID 03/03/24 03/26/24 03/25/24 21:00 tablet (Entresto) spironolactone 25 mg tablet 25 mg PO [facility] 03/03/24 03/26/24 03/25/24 08:30 trazodone 50 mg tablet 50 mg PO 03/03/24 03/26/24 03/25/24 21:00 Active Medications Generic Name Dose Route Start Last Admin Trade Name Bruce PRN Reason Stop Dose Admin Lactated Ringer's 1,000 mls @ 60 mls/hr 03/26/24 06:00 03/26/24 09:35 Lr IV 03/26/24 22:39 Not Given .[id number] BI Vancomycin HCl 1,500 mg/ 530 mls @ 200 mls/hr 03/26/24 06:00 03/26/24 09:35 Sodium Chloride IV 03/26/24 18:00 200 mls/hr PREOP BI Administration Lactated Ringer's 1,000 mls @ 15 mls/hr 03/26/24 06:00 03/26/24 09:35 Lr IV 03/26/24 18:00 15 mls/hr .Q24H BI Administration Past Anesthesia History No Hx of Anesthesia Complications and No Family Hx of Anesthesia Complications History of PONV No Hx of Motion Sickness and History of PONV (Ether (as child)- PONV) NPO Date Last Intake of Fluids: 03/25/24 Time Last Intake of Fluids: 21:00 Date Last Intake of Solids: 03/25/24 Time Last Intake of Solids: 18:00 Home Medications Home Medications Medication Instructions Recorded Confirmed Last Taken acetaminophen 325 mg tablet 650 mg PO Q4 PRN Pain (Scale Score 03/24/21 03/26/24 03/25/24 21:00 1-3) apixaban 5 mg tablet (Eliquis) 5 mg PO BID 03/03/24 03/26/24 03/23/24 cyanocobalamin (vitamin B-12) 1,000 mcg PO QAM 03/03/24 03/26/24 03/25/24 08:30 1,000 mcg tablet (Vitamin B-12) furosemide 40 mg tablet (Lasix) 40 mg PO QAM 03/03/24 03/26/24 2 Months Ago ~01/25/24 gabapentin 300 mg capsule 300 mg PO QAM 03/03/24 03/26/24 03/26/24 06:30 gabapentin 300 mg capsule 600 mg PO 03/03/24 03/26/24 03/25/24 21:00 lansoprazole 1 cap PO [facility] 03/03/24 03/26/24 03/26/24 06:30 latanoprost 0.005 % eye drops 1 drp OPB 03/03/24 03/26/24 03/25/24 21:00 lidocaine HCl 1 % topical gel 1 ea topical 03/03/24 03/26/24 03/24/24 melatonin 3 mg tablet 3 mg PO 03/03/24 03/26/24 03/25/24 21:00 methimazole 10 mg tablet 5 mg PO [facility] 03/03/24 03/26/24 03/26/24 06:30 metoprolol succinate 50 mg 50 mg PO BID 03/03/24 03/26/24 03/26/24 06:30 tablet,extended release 24 hr multivitamin 1 tab PO [facility] 03/03/24 03/26/24 03/25/24 08:30 rosuvastatin 10 mg tablet 10 mg PO 03/03/24 03/26/24 03/25/24 21:00 sacubitril 24 mg-valsartan 26 mg 1 tab PO BID 03/03/24 03/26/24 03/25/24 21:00 tablet (Entresto) spironolactone 25 mg tablet 25 mg PO [facility] 03/03/24 03/26/24 03/25/24 08:30 trazodone 50 mg tablet 50 mg PO 03/03/24 03/26/24 03/25/24 21:00 Active Medications Generic Name Dose Route Start Last Admin Trade Name Arcadioq PRN Reason Stop Dose Admin Lactated Ringer's 1,000 mls @ 60 mls/hr 03/26/24 06:00 03/26/24 09:35 Lr IV 03/26/24 22:39 Not Given .[id number] BI Vancomycin HCl 1,500 mg/ 530 mls @ 200 mls/hr 03/26/24 06:00 03/26/24 09:35 Sodium Chloride IV 03/26/24 18:00 200 mls/hr PREOP BI Administration Lactated Ringer's 1,000 mls @ 15 mls/hr 03/26/24 06:00 03/26/24 09:35 Lr IV 03/26/24 18:00 15 mls/hr .Q24H BI Administration Exercise / Class Metabolic Activity Metabolic Activity: II 4-5 Yardwork/Stairs/Walk up hill (one FS: No CP, no SOB) Physical Exam Constitutional: no acute distress Mouth: + dentures (upper ); no dentition abnormality Thyromental Distance: > or= 3.5 Finger Breadths Mallampati Class: II Neck: + visual inspection normal Respiratory: + respiratory effort normal and + clear to auscultation bilaterally; no respiratory distress Cardiovascular: + regular rate and + regular rhythm; no murmur Musculoskeletal: no limited cervical ROM Psychiatric: + alert and + oriented x 3 ASA ASA4 Proposed Anesthesia Proposed Anesthesia: MAC Spinal Regional Risk / Benefits Reviewed With: PT / POA / Parent / Guardian, Accepts Plan and Informed Consent Obtained Additional Comments: Pt AICD has fired many times in response to activities such as lawn mowing and using a chainsaw. We will plan to place a magnet to suppress AICD function for the duration of the case and then to have the device interrogated at the conclusion of the case to confirm resumption of intended function.
[2024-03-26] MEDS ORDERED: fentaNYL citrate PF 100 MCG/2 ML VIAL ONE (10:39)
[2024-03-26] MEDS: FLECAINIDE ACETATE 100 MG TABLET PO STA (10:48)
[2024-03-26] MEDS: TRANEXAMIC ACID 1,000 MG **IV Pre-op IV SCH (11:15)
[2024-03-26] MEDS: ceFAZolin 2000MG 2,000 MG/15 ML SYR IV SCH ×2 (11:32→18:03)
--- NOTE | 2024-03-26 12:08 | Post Operative Brief Note ---
Immediate Post Op Note Date of Surgery March 26, 2024 Pre & Post Diagnosis Operation Date: 03/26/24 10:55 Pre-Op Diagnosis: Painful total knee replacement, left Post-Op Diagnosis: Painful total knee replacement, left I identified the patient and participated in the time-out.: Yes Procedure Operation Date: 03/26/24 10:55 Actual Procedures p Exploration and Poly Exchange of Left Total Knee Replacement(Left) - Braeden Horne MD Surgeon Braeden Horne MD Shirt Folder Harvey Franklin PA-C Estimated Blood Loss 25 Findings Consistent with Post-Op Diagnosis
[2024-03-26] MEDS: ROPIV 0.5% 246mg, Ketorolac 30mg, EPINEPHrine 0.5mg in NSS INFIL SCH (12:19)
[2024-03-26] MEDS: TRANEXAMIC ACID 1,000 MG **IV Intra-op IV SCH (12:27)
--- NOTE | 2024-03-26 12:29 | Operative Report ---
Post Operative Report Pre & Post Diagnosis Operation Date: 03/26/24 10:55 Pre-Op Diagnosis: Painful total knee replacement, left Post-Op Diagnosis: Painful total knee replacement, left I identified the patient and participated in the time-out.: Yes Procedure Operation Date: 03/26/24 10:55 Actual Procedures p Exploration and Poly Exchange of Left Total Knee Replacement(Left) - Braeden Horne MD Surgeon Braeden Horne MD Technology And Engineering Teacher Harvey Franklin PA-C Estimated Blood Loss 25 Findings Consistent with Post-Op Diagnosis the tibial polyethylene post was broken with piece floating in the knee most likely the source of the locking Specimens explanted polyethylene and synovial tissue Complications none Indications components used [employer] journey 1 tall post size 7 x 10 Description of Procedure following satisfactory spinal anesthesia the patient was supine on the operating room table. The left lower extremity was prepared with ChloraPrep and draped sterilely. A surgical timeout was performed. A midline incision was made using the old knee incision with a median parapatellar arthrotomy. Hemostasis was obtained. There was significant thickened synovial tissue. A partial synovectomy was performed in the superior medial superolateral inferomedial and inferolateral gutters to allow exposure. The broken post of the tibial post was then encountered. The tibial polyethylene component was removed. I trial reduction with a size 10 insert showed good tensioning and stability on the collateral ligaments full extension and the patella tracked well throughout. The trial component was removed. Local anesthetic was placed and after irrigation the final polyethylene implant of permanent implant was placed same size and showed similar stability and tracking. The wound was irrigated with 500 cc of experience irrigation. The capsulotomy was closed with interrupted [id number] sutures of 1 Vicryl and a running suture of 0 strata fix. The subcutaneous tissues were closed with 0 strata fix deep and surgical amina in the skin. A- pressure wound dressing followed by a compressive bandage was applied. Patient was returned to his bed in stable condition. I attest to the content of the Intraoperative Record and any orders documented therein. Any exceptions are noted below.
--- NOTE | 2024-03-26 12:42 | Operative Report ---
Post Operative Report Pre & Post Diagnosis Operation Date: 03/26/24 10:55 Pre-Op Diagnosis: Painful total knee replacement, left Post-Op Diagnosis: Painful total knee replacement, left I identified the patient and participated in the time-out.: Yes Procedure Operation Date: 03/26/24 10:55 Actual Procedures p Exploration and Poly Exchange of Left Total Knee Replacement(Left) - Braeden Horne MD Surgeon Braeden Horne MD Vocational Counselor Harvey SAUNDERS-C Estimated Blood Loss 25 Findings Consistent with Post-Op Diagnosis Specimens K bone and cartilage fragments Description of Procedure Family anywhere note: Harvey SAUNDERS was present and assisted throughout due to the complicated nature of this case. He help with preparation and set up and emergency room physician assistant throughout. He assisted with hemostasis and exposure throughout the procedure. He also closed the capsular subcutaneous and skin layers and applied the postop dressing. I attest to the content of the Intraoperative Record and any orders documented therein. Any exceptions are noted below.
--- NOTE | 2024-03-26 13:12 | Anesthesiology Progress Note ---
Date of Service March 26, 2024 Anesthesia Post Procedure Vital Signs Vital Signs: Temp Pulse Resp BP Pulse Ox O2 Del Method O2 Flow Rate 03/26/24 13:05 61 16 112/68 99 Room Air 03/26/24 12:55 60 16 115/75 99 Oxymask 5 03/26/24 12:45 61 16 108/67 99 Oxymask 5 03/26/24 12:38 36.0 C L 60 16 112/68 99 Oxymask 5 03/26/24 09:15 36.4 C L 60 18 125/83 99 Room Air Pain Intensity Left Knee: Pain Intensity: 0 Transfer of Care Handoff Completed per policy Notes Mental Status: alert / awake / arousable and participated in evaluation Nausea / Vomiting: adequately controlled Pain: adequately controlled Airway Patency, RR, SpO2: stable & adequate BP & HR: stable & adequate Hydration State: stable & adequate Neuraxial Anesthesia: was administered and sensory block is resolving Anesthetic Complications: no major complications apparent and Pt Satisfied with anesthetic care
[2024-03-26] MEDS ORDERED: NALOXONE HCL 0.4 MG/1 ML VIAL/CARP IV PRN (14:54)
[2024-03-26] MEDS ORDERED: MAGNESIUM HYDROXIDE SUSP 30 ML UDC PO PRN (14:54)
[2024-03-26] MEDS ORDERED: bisacodyL 10 MG SUPP PR PRN (14:54)
[2024-03-26] MEDS ORDERED: METOCLOPRAMIDE HCL INJ 5 MG/ML 2 ML VIAL IV PRN (14:54)
[2024-03-26] MEDS: ORTHO JOINT ANESTHETIC ONE (14:55)
[2024-03-26] MEDS: SODIUM CHLORIDE 0.9% 1,000 ML IV SCH (15:07)
[2024-03-26] MEDS: SENNA 8.6 MG TAB PO SCH (21:50)
[2024-03-26] MEDS: VALSARTAN/SACUBITRIL 26/24MG TAB PO SCH (21:50)
[2024-03-26] MEDS: DOCUSATE SODIUM 100 MG CAP PO SCH (21:50)
[2024-03-26] MEDS: traZODone HCL 50 MG TAB PO SCH (21:50)
[2024-03-26] MEDS: METOPROLOL SUCC 50MG EXT REL TAB PO SCH (21:50)
[2024-03-26] MEDS: LATANOPROST 0.005% OP SOLN 2.5 ML BTL OPB SCH (21:51)
[2024-03-26] MEDS: ACETAMINOPHEN 325 MG TAB PO PRN (21:51)
[2024-03-26] MEDS: MELATONIN 3 MG TAB PO SCH (21:51)
[2024-03-27] MEDS: traMADol HCL 50 MG TABLET PO PRN (00:25)
[2024-03-27 08:16] VITALS: BP 105/65; PULSE 63; RESP 16; TEMP 97.5; O2SAT 97
[2024-03-27] MEDS: GABAPENTIN 300 MG CAP PO SCH (08:30)
[2024-03-27] MEDS: SPIRONOLACTONE 25 MG TAB PO SCH (08:31)
[2024-03-27] MEDS: PANTOprazole 40 MG TAB PO SCH ×2 (08:31→09:02)
[2024-03-27] MEDS: MULTIVITAMIN TAB PO SCH (08:32)
[2024-03-27] MEDS: CYANOCOBALAMIN (B-12) 500 MCG TABLET PO SCH (08:33)
[2024-03-27] MEDS: FUROSEMIDE 40 MG TAB PO SCH (08:33)
[2024-03-27] MEDS: methIMAzole 5 MG TABLET PO SCH (08:34)
--- NOTE | 2024-03-27 08:50 | Orthopedic Progress Note ---
Date of Service March 27, 2024 Assessment & Plan (1) Painful total knee replacement, left: Plan: Patient is doing very well. He had a simple polyethylene exchange with minimal blood loss. He should be cleared and able to go home this morning as long as he passes his physical therapy. We did review medication instructions he will restart his Eliquis tomorrow. He is to use ice and rest of no special physical therapy or home health needs. He will follow-up in the office in 2 weeks time Admission and Anticipated Discharge Date Admission Date: March 26, 2024 Subjective postoperative day #1 after exploration and exchange tibial polyethylene insert for acute failure Patient is awake alert and oriented x 3. He offers no complaints today regarding his knee he states that he feels "great". He has been able to the ambulate to the bathroom multiple times and is doing well. Physical Exam Physical Exam: Patient is seen at the bedside. His Rico wrap and compression bandages removed. His jose dressing is clean dry and intact. His thigh and calf are soft and nontender he has very little swelling. He is neurologically and vascularly intact. Results & Data Vital Signs (Past 12 Hours) Vital Signs Temp Pulse Resp BP Pulse Ox O2 Del Method 03/27/24 08:14 36.4 C L 63 16 105/65 97 Room Air 03/27/24 04:08 36.3 C L 65 18 125/72 94 Room Air 03/26/24 23:12 36.4 C L 62 16 129/69 97 Room Air 03/26/24 21:48 62 133/77
== END 2024-03-27 12:01 | disposition home or self-care (01) | DRG 489 ==
LOC: ASU 08:47 → 3E 12:13
DX: I25.10 Atherosclerotic heart disease of native coronary artery without angina pectoris; E78.5 Hyperlipidemia, unspecified; T84.013A Broken internal left knee prosthesis, initial encounter; I11.0 Hypertensive heart disease with heart failure; Z88.3 Allergy status to other anti-infective agents; Z79.899 Other long term (current) drug therapy; I48.0 Paroxysmal atrial fibrillation; I50.9 Heart failure, unspecified; G62.9 Polyneuropathy, unspecified; K21.9 Gastro-esophageal reflux disease without esophagitis; Z79.01 Long term (current) use of anticoagulants; Z88.8 Allergy status to other drugs, medicaments and biological substances